=== PATIENT | male | born 1955 | race Caucasian/White ===

== ENCOUNTER 2017-08-22 10:08 | Observation (INO) | payer BC, OTHER ==
[~2017-08-22] VITALS: Ht 180.3 cm; Wt 67.0 kg
[2017-08-22] VITALS (7 sets, daily range): BP systolic 129–156; BP diastolic 46–77; PULSE 61–74; TEMP 36.5–37.1; O2SAT 93–98; BMI 21.7
[~2017-08-22 10:08] MED LIST: ATOR-22 PO; INSU1INJ SC; SODIUM CHLORIDE 0.9% 1000ML 1,000 ML IV SCH
[2017-08-22] MEDS ORDERED: SODIUM CHLORIDE 0.9% 1000ML 1,000 ML IV STA (10:27)
--- NOTE | 2017-08-22 10:39 | DIAGNOSTIC IMAGING REPORT ---
CHEST ONE VIEW PORTABLE CLINICAL HISTORY: Stroke mental status change COMPARISON STUDY: 12/24/2015 FINDINGS: The bones soft tissues and hemidiaphragms are normal. The cardiomediastinal silhouette is normal. The lungs are clear. The pulmonary vasculature is normal. IMPRESSION: Negative chest. The above report was generated using voice recognition software. It may contain grammatical, syntax or spelling errors. Electronically signed by: Eliseo Molina M.D. 08/22/2017 10:38 AM Dictated Date/Time: 08/22/2017 10:38 AM
--- NOTE | 2017-08-22 10:47 | DIAGNOSTIC IMAGING REPORT ---
HEAD WITHOUT CONTRAST (CT) CT DOSE: 638.56 mGycm HISTORY: Mental status change Stroke TECHNIQUE: Multiaxial CT images of the head were performed without the use of intravenous contrast. A dose lowering technique was utilized adhering to the principles of ALARA. Comparison: None. Findings: The paranasal sinuses and mastoid air cells are clear. The calvarium and skull base are intact. The ventricles and sulci are within normal limits. There is no mass, hematoma, midline shift, or acute infarct. There are findings of old infarcts involving the left frontal lobe, to lesser extent right frontal lobe, as well as left parietal lobe region. There is no evidence for acute intracranial hemorrhage. There is no midline shift. Impression: Multifocal old infarcts bilaterally. No acute intracranial abnormality. The above report was generated using voice recognition software. It may contain grammatical, syntax or spelling errors. Electronically signed by: Eliseo Molina M.D. 08/22/2017 10:45 AM Dictated Date/Time: 08/22/2017 10:43 AM
[2017-08-22] MEDS ORDERED: INSU3INJ2 SC (10:52)
[2017-08-22] MEDS ORDERED: INSU3INJ2 SQ (10:52)
[2017-08-22 11:12] LABS: BASO % 0.5 %; BASO ABS # 0.05 K/uL (0-0.2); COMPLETE YES; EOS % 7.3 %; HEMATOCRIT 41.6 % (42-52); IG% 0.4 %; LYMPH ABS # 1.56 K/uL (1.2-3.4); MEAN CELL VOLUME 87.9 fL (80-100); MEAN CORPUSCULAR HEMOGLOBIN 28.1 pg (25-34); MEAN PLATELET VOLUME 8.8 fL (7.4-10.4); NEUT % 69.8 %; PLATELET COUNT 347 K/uL (130-400); RED BLOOD COUNT 4.73 M/uL (4.7-6.1); WHITE BLOOD COUNT 10.41 K/uL (4.8-10.8)
[2017-08-22 11:19] LABS: BLOOD UREA NITROGEN 15 mg/dl (7-18); BUN/CREATININE RATIO 13.5 (10-20); CALCIUM 8.7 mg/dl (8.5-10.1); CARBON DIOXIDE 27 mmol/L (21-32); CHLORIDE 105 mmol/L (98-107); GLUCOSE 213 mg/dl (70-99); POTASSIUM 4.5 mmol/L (3.5-5.1); SODIUM 138 mmol/L (136-145)
[2017-08-22 11:24] LABS: CKMB/CK RATIO 1.8 (0-3.0)
[2017-08-22] MEDS ORDERED: ASPIRIN 81 MG CHEW PO STA (11:46)
[2017-08-22] MEDS ORDERED: CLOP1TAB5 PO (13:13)
[2017-08-22] MEDS ORDERED: ENAL20TA PO (13:13)
[2017-08-22] MEDS ORDERED: DEXTROSE 50% 50 ML SYR IV PRN (13:45)
[2017-08-22] MEDS ORDERED: GLUCAGON FOR INJ 1 MG VIAL SQ PRN (13:45)
[2017-08-22] MEDS ORDERED: PNEUMOCOCCAL ADMINISTRATION CHARGE ONE (13:45)
[2017-08-22] MEDS ORDERED: GLUCOSE 40% GEL 15 GM TUBE PO PRN (13:45)
[2017-08-22] MEDS ORDERED: PHARMACIST DISCHARGE MED REC CONSULT PRN (13:45)
[2017-08-22] MEDS ORDERED: ONDANSETRON INJ 2 MG/ML 2 ML VIAL IV PRN (13:45)
[2017-08-22] MEDS ORDERED: INFLUENZA VIRUS QUAD VACCINE 0.5 ML SYR IM. ONE (13:45)
[2017-08-22] MEDS ORDERED: GLUCOSE 10 TABS/TUBE PO PRN (13:45)
[2017-08-22] MEDS ORDERED: PNEUMOCOCCAL POLYSACCHARIDES 25 MCG/0.5 ML VIAL/SYR IM. ONE (13:45)
[2017-08-22] MEDS ORDERED: INFLUENZA ADMINISTRATION CHARGE ONE (13:45)
[2017-08-22] MEDS ORDERED: MAGNESIUM HYDROXIDE SUSP 30 ML UDC PO PRN (13:45)
[2017-08-22] MEDS ORDERED: ACETAMINOPHEN 325 MG TAB PO PRN (13:45)
[2017-08-22] MEDS ORDERED: ALUMINUM/MAGNESIUM/SIMETH (MAALOX MAX) 30 ML UDC PO PRN (13:45)
[2017-08-22] MEDS ORDERED: POLYETHYLENE (MIRALAX) 17 GM PACK PO PRN (13:45)
--- NOTE | 2017-08-22 13:54 | History and Physical ---
History & Physical Date & Time of Service: Aug 22, 2017 at 13:49 Chief Complaint: Stroke Alert Primary Care Physician: Drew Mcleod M.D. History of Present Illness Source: patient, spouse Mr. Mills is a 62 y/o male with PMHx of Isolated Hodgkins Lymphoma S/P Resection x 35 years ago, T2DM, HTN, HLD, and CVA in 2015 who presents to the ED c/o R hand/wrist weakness that started last evening. Patient reports R residual deficits from his previous CVA but stating he was "95%" recovered. Last night, patient noticed some numbness/tingling of the R hand/wrist but no other symptoms and went to bed. He awoke at 0830 and stated he felt "off" and had R hand numbness/tingling and weakness that he reports seemed to improve and worsen. Per , she noted that he appeared to have difficulty finding his words and a waxing and waning L facial droop. He reports his symptoms resolved on the ambulance ride to the hospital. Associated posterior headache that started prior to the symptoms but currently resolved. States he had frequent headaches as a child but no migraine history. He denies lower extremity neurological deficits. He is a diabetic who was recently instructed to switch to Lantus from 70/30 but could not give the dosing and states he hasn't started Lantus because he still had 70/30 to use. He believes his last A1c was 8. He is also an intermittent smoker and states he smokes approx. 2 cigarettes every few days. He reports that he had a previous carotid u/s that revealed 60% stenosis. He also reports chronic dysphagia that occurs nearly daily but occurs intermittently throughout the day. He denies H/O arrhythmia but states prior to a previous surgery the anesthesiologist mentioned something about his heart but he cannot recall specifics. Of note, patient reports taking an antibiotic for approx. 10-14 days from reported pneumonia. He is unable to state what this antibiotic is and reports completed the regimen. He states he was on it initially 10 days and then his symptoms did not improve and he took it longer. He denies a diagnosis of underlying pulmonary disease. Past Medical/Surgical History Medical Problems: (1) CVA (cerebral vascular accident) Status: Resolved Family History Diabetes mellitus Hypertension Social History Smoking Status: Current Some Day Smoker (2 cigarettes every few days) Alcohol Use: none Drug Use: none Marital Status: Housing status: lives with significant other Occupational Status: retired Allergies Coded Allergies: Penicillins (Verified Allergy, Unknown, UNKNOWN-HAD CHILD, 08/22/17) Home Medications Scheduled Atorvastatin (Lipitor), 20 MG PO QPM Clopidogrel Bisulfate (Plavix), 75 MG PO QPM Enalapril Maleate (Enalapril Maleate), 20 MG PO QPM Insulin Isophane & Reg (Human) (Humulin 70/30 Kwikpen (70-30) 100 Unit/ml), 30 UNITS SC QAM Insulin Isophane & Reg (Human) (Humulin 70/30 Kwikpen (70-30) 100 Unit/ml), 20 UNITS SQ QPM Review of Systems Constitutional: No fever, No chills Eyes: No worsening of vision, No eye pain, No diplopia ENT: + trouble swallowing (chronic difficulty initiating swallow), + problem reported (post-nasal drip), No nasal symptoms, No sore throat Respiratory: + cough, + sputum, + dyspnea on exertion (chronic), No dyspnea at rest Cardiovascular: No chest pain, No palpitations Abdomen: No pain, No nausea, No vomiting, No diarrhea, No constipation, No GI bleeding Musculoskeletal: No swelling, No calf pain Genitourinary - Male: No dysuria Neurologic: + weakness (R sided - wax and waning R hand), + numbness/tingling ( R hand), No memory loss, No vertigo, No balance problems Hematologic / Lymphatic: No abnormal bleeding/bruising, No clotting problems Integumentary: No rash Physical Exam Vital Signs Date Time Temp Pulse Resp B/P (MAP) Pulse Ox O2 Delivery O2 Flow Rate FiO2 08/22/17 12:40 98 Room Air 08/22/17 12:25 73 16 128/74 98 Room Air 08/22/17 11:30 71 16 97 Room Air 08/22/17 10:46 79 08/22/17 10:08 97 Room Air 08/22/17 10:08 36.8 97 18 113/73 97 Room Air General Appearance: WD/WN, no apparent distress, + thin Head: normocephalic, atraumatic Eyes: sclerae normal ENT: hearing grossly normal, + pertinent finding (mildly erythematous pharynx without exudates) Neck: supple, no JVD, trachea midline Respiratory/Chest: no respiratory distress, no accessory muscle use, + wheezing (diffuse) Cardiovascular: regular rate, rhythm, no gallop, no murmur Abdomen/GI: normal bowel sounds, non tender, soft Extremities/Musculoskelatal: no calf tenderness, no pedal edema Neurologic/Psych: no motor/sensory deficits, alert, normal mood/affect, oriented x 3 Skin: normal color, warm/dry Diagnostics Laboratory Results Results Past 24 Hours Test 08/22/17 10:27 08/22/17 10:50 08/22/17 13:01 Range/Units Bedside Prothrombin Time INR 1.1 0.9-1.1 White Blood Count 10.41 4.8-10.8 K/uL Red Blood Count 4.73 4.7-6.1 M/uL Hemoglobin 13.3 14.0-18.0 g/dL Hematocrit 41.6 42-52 % Mean Corpuscular Volume 87.9 80-100 fL Mean Corpuscular Hemoglobin 28.1 25-34 pg Mean Corpuscular Hemoglobin Concent 32.0 32-36 g/dl Platelet Count 347 130-400 K/uL Mean Platelet Volume 8.8 7.4-10.4 fL Neutrophils (%) (Auto) 69.8 % Lymphocytes (%) (Auto) 15.0 % Monocytes (%) (Auto) 7.0 % Eosinophils (%) (Auto) 7.3 % Basophils (%) (Auto) 0.5 % Neutrophils # (Auto) 7.27 1.4-6.5 K/uL Lymphocytes # (Auto) 1.56 1.2-3.4 K/uL Monocytes # (Auto) 0.73 0.11-0.59 K/uL Eosinophils # (Auto) 0.76 0-0.5 K/uL Basophils # (Auto) 0.05 0-0.2 K/uL RDW Standard Deviation 44.4 36.4-46.3 fL RDW Coefficient of Variation 13.7 11.5-14.5 % Immature Granulocyte % (Auto) 0.4 % Immature Granulocyte # (Auto) 0.04 0.00-0.02 K/uL Sodium Level 138 136-145 mmol/L Potassium Level 4.5 3.5-5.1 mmol/L Chloride Level 105 98-107 mmol/L Carbon Dioxide Level 27 21-32 mmol/L Anion Gap 6.0 3-11 mmol/L Blood Urea Nitrogen 15 7-18 mg/dl Creatinine 1.10 0.60-1.40 mg/dl Est Creatinine Clear Calc Drug Dose 67.8 ml/min Estimated GFR () 81.8 Estimated GFR (Non- 70.6 BUN/Creatinine Ratio 13.5 10-20 Random Glucose 213 70-99 mg/dl Calcium Level 8.7 8.5-10.1 mg/dl Total Creatine Kinase 129 39-308 U/L Creatine Kinase MB 2.3 0.5-3.6 ng/ml Creatine Kinase MB Ratio 1.8 0-3.0 Troponin I < 0.015 0-0.045 ng/ml Diagnostic Radiology HEAD WITHOUT CONTRAST (CT) Findings: The paranasal sinuses and mastoid air cells are clear. The calvarium and skull base are intact. The ventricles and sulci are within normal limits. There is no mass, hematoma, midline shift, or acute infarct. There are findings of old infarcts involving the left frontal lobe, to lesser extent right frontal lobe, as well as left parietal lobe region. There is no evidence for acute intracranial hemorrhage. There is no midline shift. Impression: Multifocal old infarcts bilaterally. No acute intracranial abnormality. CHEST ONE VIEW PORTABLE FINDINGS: The bones soft tissues and hemidiaphragms are normal. The cardiomediastinal silhouette is normal. The lungs are clear. The pulmonary vasculature is normal. IMPRESSION: Negative chest. EKG Normal sinus rhythm Right superior axis deviation Inferior infarct (cited on or before 12-AUG-2015) Anterior infarct , age undetermined Abnormal ECG When compared with ECG of 24-DEC-2015 14:56, No significant change was found Impression Assessment and Plan Mr. Mills is a 62 y/o male with PMHx of Isolated Hodgkins Lymphoma S/P Resection x 35 years ago, T2DM, HTN, HLD, and CVA in 2014 who presents to the ED c/o R hand/wrist weakness that started last evening. Stuttering CVA: L Temporal Cortex: - Symptoms currently resolved - MRI confirmed punctate foci in L temporal cortex with CT showing bilateral old infarcts - Carotid U/S with significant stenosis - likely the source of CVA - Echo and monitor on tele - no history of arrhythmia but given bilateral CVA findings it is warranted - Neuro checks and fasting lipid panel; patient normotensive but will hold ACEI and allow permissive HTN - Currently on Plavix 75 mg daily and will add ASA 81 mg - Continue Atorvastatin 20 mg daily - await lipid panel but likely needs high- dose statin - Consult neurology - appreciate further recommendations and outpatient follow- up Chronic Dysphagia: - Seen coughing when eating and when instructed to open mouth to assess throat he began coughing - Reporting daily dysphagia but intermittently occurs throughout the day with both solid and liquid - Speech evaluation T2DM: Likely Uncontrolled - Reporting A1c in 8 - will obtain update - Hold 70/30 and start Lantus and SSI -- Patient could not give specific dose of Lantus he was instructed to start but states that he was only to take Lantus and no meal coverage - Is interested in establishment with diabetic specialist here in [place] - Recommend better diabetic control to reduce risk of further CVA/TIA Wheezing: - Possible underlying pulmonary disease given smoking history - CXR without consolidation - Duonebs DB and PRN Disposition: - Pending further testing and continued resolution of neurological symptoms - possible D/C tomorrow Level of Care Telemetry Advanced Directives Existing Living Will: No Existing Power of Plastics Plater: No Resuscitation Status FULL RESUSCITATION VTE Prophylaxis VTE Risk Assessment Done? Y/N: Yes Risk Level: Moderate Given or contraindicated: SCD's Reviewed: Pt Seen/Exam by Me History Pt is feeling improved. No further R UE weakness. Earlier he could not hold a coffee cup, but now he can. Noted to be coughing when I entered the room as he was eating. States this happens daily but not with all swallowing. Feels facial droop has resolved. No chest pain or SOB. Agree with HPI/ROS as noted. 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 involvement with CVA sx??
[2017-08-22] MEDS ORDERED: ALBUT/IPRATROP 3MG/0.5MG NEB 3 ML VIAL INH PRN (14:00)
[2017-08-22] MEDS ORDERED: IV FLUIDS COMPLETED PRN (14:45)
[2017-08-22] MEDS: ALBUT/IPRATROP 3MG/0.5MG NEB 3 ML VIAL INH SCH ×3 (15:50→19:50)
--- NOTE | 2017-08-22 15:58 | EMERGENCY ROOM VISIT NOTE ---
History Report prepared by Juan Luis: Alex Alex Under the Supervision of: Dr. Sharath Matos D.O. First contact with patient: 10:08 Stated Complaint: STROKE ALERT History of Present Illness The patient is a 62 year old male who presents to the Emergency Room with complaints of resolved neurologic symptoms beginning 1.5 hours ago (829). His symptoms include right hand numbness and weakness, and difficulty speaking. He states that he was unable to use his hand, but this has resolved. The patient denies any weakness or numbness to his legs today. He denies any confusion. He has a history of a prior stroke. The patient states that he currently feels back to normal. He is currently taking an unknown antibiotic for pneumonia. He notes that his right hand felt a little numb/weak before he went to bed last night around 12 hours ago. Source of History: patient Onset: 1.5 hours ago Position: hand (right) Quality: other (neurologic symptoms) Timing: resolved Note: The patient denies weakness or numbness to his legs, or confusion. Review of Systems See HPI for pertinent positives & negatives. A total of 10 systems reviewed and were otherwise negative. Past Medical & Surgical Medical Problems: (1) CVA (cerebral vascular accident) (2) TIA (transient ischemic attack) Family History Diabetes mellitus Hypertension Social History Smoking Status: Former Smoker Alcohol Use: occasionally Marital Status: Housing Status: lives with family Occupation Status: retired Current/Historical Medications Scheduled Atorvastatin (Lipitor), 20 MG PO QPM Clopidogrel Bisulfate (Plavix), 75 MG PO QPM Enalapril Maleate (Enalapril Maleate), 20 MG PO QPM Insulin Isophane & Reg (Human) (Humulin 70/30 Kwikpen (70-30) 100 Unit/ml), 30 UNITS SC QAM Insulin Isophane & Reg (Human) (Humulin 70/30 Kwikpen (70-30) 100 Unit/ml), 20 UNITS SQ QPM Allergies Coded Allergies: Penicillins (Verified Allergy, Unknown, UNKNOWN-HAD CHILD, 08/22/17) Physical Exam Vital Signs Date Time Temp Pulse Resp B/P (MAP) Pulse Ox O2 Delivery O2 Flow Rate FiO2 08/22/17 12:40 98 Room Air 08/22/17 12:25 73 16 128/74 98 Room Air 08/22/17 11:30 71 16 97 Room Air 08/22/17 10:46 79 08/22/17 10:08 97 Room Air 08/22/17 10:08 36.8 97 18 113/73 97 Room Air Physical Exam GENERAL: Sitting up in bed, disheveled, no acute distress, nontoxic. EYE EXAM: normal conjunctiva. PERRL and EOM's intact. OROPHARYNX: no exudate, no erythema, lips, buccal mucosa, and tongue normal and mucous membranes are moist NECK: supple, no nuchal rigidity, no adenopathy, non-tender LUNGS: Clear to auscultation. Normal chest wall mechanics HEART: no murmurs, S1 normal and S2 normal ABDOMEN: abdomen soft, non-tender, normo-active bowel sounds, no masses, no rebound or guarding. BACK: Back is symmetrical on inspection and there is no deformity, no midline tenderness, no CVA tenderness. SKIN: no rashes and no bruising UPPER EXTREMITIES: upper extremities are grossly normal. LOWER EXTREMITIES: No pitting edema. NEURO EXAM: Normal sensorium, cranial nerves II-XII intact, normal speech, no weakness of arms, no weakness of legs. No drift. Finger to nose intact. Gross sensation intact. Medical Decision & Procedures ER Provider Diagnostic Interpretation: Radiology results as stated below per my review and the radiologist's interpretation: HEAD WITHOUT CONTRAST (CT) Findings: The paranasal sinuses and mastoid air cells are clear. The calvarium and skull base are intact. The ventricles and sulci are within normal limits. There is no mass, hematoma, midline shift, or acute infarct. There are findings of old infarcts involving the left frontal lobe, to lesser extent right frontal lobe, as well as left parietal lobe region. There is no evidence for acute intracranial hemorrhage. There is no midline shift. Impression: Multifocal old infarcts bilaterally. No acute intracranial abnormality. The above report was generated using voice recognition software. It may contain grammatical, syntax or spelling errors. Electronically signed by: Eliseo Molina M.D. 08/22/2017 10:45 AM CHEST ONE VIEW PORTABLE FINDINGS: The bones soft tissues and hemidiaphragms are normal. The cardiomediastinal silhouette is normal. The lungs are clear. The pulmonary vasculature is normal. IMPRESSION: Negative chest. The above report was generated using voice recognition software. It may contain grammatical, syntax or spelling errors. Electronically signed by: Eliseo Molina M.D. 08/22/2017 10:38 AM Laboratory Results 08/22/17 10:50 Red Blood Count 4.73, Mean Corpuscular Volume 87.9, Mean Corpuscular Hemoglobin 28.1, Mean Corpuscular Hemoglobin Concent 32.0, Mean Platelet Volume 8.8, Neutrophils (%) (Auto) 69.8, Lymphocytes (%) (Auto) 15.0, Monocytes (%) (Auto) 7.0, Eosinophils (%) (Auto) 7.3, Basophils (%) (Auto) 0.5, Neutrophils # (Auto) 7.27, Lymphocytes # (Auto) 1.56, Monocytes # (Auto) 0.73, Eosinophils # (Auto) 0.76, Basophils # (Auto) 0.05 08/22/17 10:50 Test 08/22/17 10:00 08/22/17 10:27 08/22/17 10:50 Bedside Prothrombin Time INR 1.1 (0.9-1.1) White Blood Count 10.41 K/uL (4.8-10.8) Red Blood Count 4.73 M/uL (4.7-6.1) Hemoglobin 13.3 g/dL (14.0-18.0) Hematocrit 41.6 % (42-52) Mean Corpuscular Volume 87.9 fL (80-100) Mean Corpuscular Hemoglobin 28.1 pg (25-34) Mean Corpuscular Hemoglobin Concent 32.0 g/dl (32-36) Platelet Count 347 K/uL (130-400) Mean Platelet Volume 8.8 fL (7.4-10.4) Neutrophils (%) (Auto) 69.8 % Lymphocytes (%) (Auto) 15.0 % Monocytes (%) (Auto) 7.0 % Eosinophils (%) (Auto) 7.3 % Basophils (%) (Auto) 0.5 % Neutrophils # (Auto) 7.27 K/uL (1.4-6.5) Lymphocytes # (Auto) 1.56 K/uL (1.2-3.4) Monocytes # (Auto) 0.73 K/uL (0.11-0.59) Eosinophils # (Auto) 0.76 K/uL (0-0.5) Basophils # (Auto) 0.05 K/uL (0-0.2) RDW Standard Deviation 44.4 fL (36.4-46.3) RDW Coefficient of Variation 13.7 % (11.5-14.5) Immature Granulocyte % (Auto) 0.4 % Immature Granulocyte # (Auto) 0.04 K/uL (0.00-0.02) Anion Gap 6.0 mmol/L (3-11) Est Creatinine Clear Calc Drug Dose 67.8 ml/min Estimated GFR () 81.8 Estimated GFR (Non- 70.6 BUN/Creatinine Ratio 13.5 (10-20) Calcium Level 8.7 mg/dl (8.5-10.1) Total Creatine Kinase 129 U/L (39-308) Creatine Kinase MB 2.3 ng/ml (0.5-3.6) Creatine Kinase MB Ratio 1.8 (0-3.0) Troponin I < 0.015 ng/ml (0-0.045) Laboratory results per my review. Medications Administered Medications (Trade) Dose Ordered Sig/Nicolas Route Start Time Stop Time Status Last Admin Dose Admin Sodium Chloride 1,000 ml @ 999 mls/hr Q1H1M STAT IV 08/22/17 10:27 08/22/17 11:27 DC 08/22/17 10:55 999 MLS/HR Aspirin (Aspirin Chew) 324 mg NOW STAT PO 08/22/17 11:46 08/22/17 11:47 DC 08/22/17 12:05 324 MG ECG Indication: other (neurologic symptoms) Rate (beats per minute): 77 Rhythm: sinus rhythm Findings: Q waves (Inferior), other (LAD) ED Course ED COURSE: Vital signs were reviewed and appeared normal. The patients medical record was reviewed The above diagnostic studies were performed and reviewed. ED treatments and interventions as stated above. 1015: The patient was evaluated in room B1. A complete history and physical examination was performed. 1027: Ordered Sodium Chloride 1000 ml @ 999 mls/hr IV. 1146: Ordered Aspirin Chew 324 mg PO. 1142: Upon reevaluation, the patient is resting comfortably. I discussed my findings with the patient and she understands and agrees with the treatment plan. Based on the patients age, coexisting illnesses, exam and lab findings the decision to treat as an inpatient was made. The patient remained stable while under my care. The patient will be evaluated for further management. Medical Decision Differential Diagnosis includes but is not limited to ischemic Stroke, hemorrhagic stroke, bells palsy, mass, neoplasm, migraine headache, seizure, subarachnoid hemorrhage, TIA, and transient global amnesia. Patient is a 62-year-old male who presents to ER for weakness in his right lower extremity associated with slurred speech and paresthesias. He notes he symptoms complete he thinks initially started last night around 10 PM. He noted paresthesias and weakness which were coming going in the right upper extremity. Upon arrival is completely neurologically intact. He was seen in P1. Patient was transferred immediately to the CT scanner. CT showed no acute bleed. On reevaluation patient was completely neurologically intact. CBC along with BMP and troponin were unremarkable. INR was 1. Based on his presentation I do favor he likely has a stuttering stroke as this has been waxing and waning since last night at 10 PM. He simply back to baseline. He was given fluids and aspirin. Patient was updated at bedside. He was admitted to internal medicine for further workup. Consults Time Called: 1140 Consulting Physician: Dr. Causey -HELLEN Returned Call: [phone] I reviewed the patient's case with Dr. Causey. JEOVANYG will evaluate the patient for further management. Impression Primary Impression: TIA (transient ischemic attack) Scribe Attestation The scribe's documentation has been prepared under my direction and personally reviewed by me in its entirety. I confirm that the note above accurately reflects all work, treatment, procedures, and medical decision making performed by me. Departure Information Dispostion Being Evaluated By Hospitalist Referrals Drew Mcleod M.D. (PCP) Problem Qualifiers Primary Impression: TIA (transient ischemic attack) Transient cerebral ischemia type: unspecified Qualified Codes: G45.9 - Transient cerebral ischemic attack, unspecified
[2017-08-22] MEDS ORDERED: GADAVIST IV PRN (16:45)
--- NOTE | 2017-08-22 16:47 | DIAGNOSTIC IMAGING REPORT ---
MRI OF THE BRAIN COMBO CLINICAL HISTORY: Strokelike symptoms. COMPARISON STUDY: CT of the brain dated 08/22/2017. TECHNIQUE: MRI of the brain was performed utilizing various T1 and T2-weighted sequences in the axial, sagittal, and coronal planes. Contrast-enhanced sequences were acquired following the administration of 7 cc of Gadavist. The examination is degraded by motion artifact. FINDINGS: Brain parenchyma: There are age-related involutional changes noting mild to moderate patchy subcortical and periventricular microangiopathic disease. Foci of bilateral frontal and left parietal encephalomalacia are consistent with remote infarcts. Tiny chronic lacunar infarcts identified in the left caudate head and the left cerebellar hemisphere. There are punctate foci of restricted diffusion identified within the medial left temporal cortex seen on axial image #13. There is no hemorrhage or mass effect. No enhancing mass lesion is identified on the postcontrast images. Hicks-white matter differentiation is preserved. No extra-axial fluid collection is seen. The cerebellar tonsils are normal in configuration. Ventricles, sulci, and cisterns: Prominent secondary to involutional change. Pituitary and sella: Unremarkable. Intracranial vasculature: Normal flow voids are maintained at the skull base. Orbits: The bony orbits are grossly intact. Orbital contents are normal in appearance. Sinuses and mastoids: There is a right mastoid effusion. The left mastoid air cells and paranasal sinuses are clear. Calvarium: Unremarkable. Cervical cord: Partially visualized cervical spinal cord is normal in morphology and signal intensity. IMPRESSION: 1. There are punctate foci of restricted diffusion in the medial left temporal cortex consistent with acute to subacute ischemia. 2. No additional foci of acute ischemia are identified. There is no hemorrhage, enhancing mass, or midline shift. 3. Senescent changes and remote infarcts as above. 4. Right mastoid effusion. Electronically signed by: Justin Scherer M.D. 08/22/2017 4:46 PM Dictated Date/Time: 08/22/2017 4:41 PM
[2017-08-22] MEDS: INSULIN ASPART 100 UNITS/ML 3 ML PEN SC SCH ×2 (17:30→20:07)
--- NOTE | 2017-08-22 17:30 | DIAGNOSTIC IMAGING REPORT ---
BILATERAL CAROTID DOPPLER STUDY HISTORY: Stroke COMPARISON: Neck CTA 09/09/2016. TECHNIQUE: Real-time, grayscale, and color Doppler sonography of the carotid arteries was performed. Imaging reviewed in the transverse and longitudinal planes. All measurements were calculated based on NASCET criteria. FINDINGS: Antegrade flow is seen in the bilateral vertebral arteries. The brachial pressures are hemodynamically similar. Severe calcified plaque within the bilateral internal carotid arteries and right external carotid artery. Mild to moderate calcified plaque within the left external carotid artery. The peak systolic velocity within the right ICA is 189 cm/s distally. The right systolic ratio is 2.9. The peak systolic velocity within the left ICA is 276 cm/s at the midportion. The left systolic ratio is 2.8. High-grade stenosis within the right external carotid artery and mild stenosis within the left external carotid artery. IMPRESSION: 1. Greater than 70% stenosis within the mid left internal carotid artery. 2. 50-69% stenosis within the distal right internal carotid artery. 3. High-grade stenosis within the right external carotid artery. Electronically signed by: Carlin Dumont M.D. 08/22/2017 5:28 PM Dictated Date/Time: 08/22/2017 5:25 PM
[2017-08-22] MEDS: INSULIN GLARGINE SOLOSTAR 100 UNITS/ML 3 ML PEN SC SCH (20:09)
[2017-08-22] MEDS ORDERED: ATORVASTATIN 20 MG TAB PO SCH (21:00)
[2017-08-22] MEDS ORDERED: CLOPIDOGREL BISULFATE 75 MG TAB PO SCH (21:00)
[2017-08-23] VITALS (10 sets, daily range): BP systolic 136–197; BP diastolic 64–77; PULSE 64–85; TEMP 36.7–36.9; O2SAT 92–95; Ht 180.3 cm; Wt 67.0 kg
[2017-08-23 06:55] LABS: BASO % 0.5 %; BASO ABS # 0.04 K/uL (0-0.2); COMPLETE YES; EOS % 15.6 %; HEMATOCRIT 38.5 % (42-52); IG% 0.4 %; LYMPH % 27.3 %; MEAN CELL VOLUME 87.7 fL (80-100); MEAN CORPUSCULAR HEMOGLOBIN 28.7 pg (25-34); MEAN CORPUSCULAR HGB CONC 32.7 g/dl (32-36); MEAN PLATELET VOLUME 8.4 fL (7.4-10.4); MONO % 9.5 %; NEUT % 46.7 %; PLATELET COUNT 297 K/uL (130-400); RED BLOOD COUNT 4.39 M/uL (4.7-6.1); WHITE BLOOD COUNT 8.44 K/uL (4.8-10.8)
[2017-08-23] MEDS: ALBUT/IPRATROP 3MG/0.5MG NEB 3 ML VIAL INH SCH ×3 (06:56→15:33)
[2017-08-23 07:24] LABS: BUN/CREATININE RATIO 12.6 (10-20); CALCIUM 8.6 mg/dl (8.5-10.1); CREATININE 0.96 mg/dl (0.60-1.40); POTASSIUM 4.5 mmol/L (3.5-5.1)
[2017-08-23 07:27] LABS: CHOLESTEROL/HDL RATIO 2.6
[2017-08-23 07:51] LABS: ESTIMATED AVERAGE GLUCOSE 194 mg/dl; HA1C FLAG Normal (Normal)
[2017-08-23] MEDS: INSULIN ASPART 100 UNITS/ML 3 ML PEN SC SCH ×3 (07:51→16:08)
[2017-08-23] MEDS: INSULIN GLARGINE SOLOSTAR 100 UNITS/ML 3 ML PEN SC SCH (07:52)
[2017-08-23] MEDS ORDERED: ASPIRIN 81 MG ECTAB PO SCH (09:00)
--- NOTE | 2017-08-23 09:11 | ECHOCARDIOGRAM REPORT ---
*NOTICE TO RECEIVING [employer] This information is strictly Confidential and protected under [place] law. [place] law prohibits you from making any further disclosure of this information unless further disclosure is expressly permitted by the written consent of the person to whom it pertains or is authorized by law. A general authorization for the release of medical or other information is not sufficient for this purpose. Hospital accepts no responsibility if the information is made available to any other person, INCLUDING THE PATIENT. Interpretation Summary * Name: MARK AGUIRRE Study Date: 08/23/2017 06:38 AM BP: 147/77 mmHg * Patient Location: C.2T\S\S242\S\1 HR: 71 * : 1955 (M/d/yyyy) Gender: Male Height: 70 in * Age: 62 yrs Ethnicity: CA Weight: 155 lb * Ordering Physician: Namita Melendez * Referring Physician: Self, Referred * Performed By: Dany Garcia RCS * * Reason For Study: CVA, Possible Underlying Arrhythmia * BSA: 1.9 m2 * No cardiac source of emboli noted. * -- Conclusions -- * Left ventricular systolic function is normal. * Injection of contrast documented no interatrial shunt. Procedure Details * A complete two-dimensional transthoracic echocardiogram was performed (2D, M-mode, Doppler and color flow Doppler). * A saline contrast injection was performed to assess for cardiac shunting. * The injection was performed through an intravenous line in the left arm. * The attending nurse who injected the saline contrast was Jaylan Ribeiro RN. * A total of 20 cc of agitated saline was given. Left Ventricle * The left ventricle is normal in size. * There is normal left ventricular wall thickness. * Ejection Fraction = 60-65%. * Left ventricular systolic function is normal. * The left ventricular wall motion is normal. Right Ventricle * The right ventricle is normal in size and function. Atria * The left atrial size is normal. * The right atrium is borderline dilated. * Injection of contrast documented no interatrial shunt. Mitral Valve * The mitral valve is grossly normal. * Significant mitral regurgitation is absent. Tricuspid Valve * The tricuspid valve is not well visualized, but is grossly normal. * Significant tricuspid regurgitation is absent. Aortic Valve * The aortic valve is normal in structure and function. * No hemodynamically significant valvular aortic stenosis. * There is no significant aortic regurgitation. Great Vessels * The aortic root is normal size. Pericardium/Pleural * There is no pericardial effusion. Great Vessels * Normal inferior vena cava diameter and respiratory variation suggests normal central venous pressure. MMode 2D Measurements and Calculations IVSd 0.90 cm IVSs 1.2 cm LVIDd 4.0 cm LVIDs 2.4 cm LVPWd 10 cm LVPWs 1.3 cm IVS/LVPW 0.90 FS 40.0 % EDV(Teich) 69.3 ml ESV(Teich) 20.0 ml EF(Teich) 71.2 % EDV(cubed) 63.2 ml ESV(cubed) 13.7 ml EF(cubed) 78.4 % % IVS thick 33.8 % % LVPW thick 25.6 % LV mass(C)d 117.1 grams LV mass(C)dI 62.5 grams/m\S\2 LV mass(C)s 83.9 grams LV mass(C)sI 44.8 grams/m\S\2 SV(Teich) 49.3 ml SI(Teich) 26.3 ml/m\S\2 SV(cubed) 49.5 ml SI(cubed) 26.4 ml/m\S\2 Ao root diam 3.1 cm Ao root area 7.5 cm\S\2 ACS 1.3 cm LA dimension 3.2 cm asc Aorta Diam 2.6 cm LA/Ao 1.0 EDV(MOD-sp4) 74.0 ml ESV(MOD-sp4) 30.0 ml EF(MOD-sp4) 59.5 % EDV(MOD-sp2) 104.0 ml ESV(MOD-sp2) 35.0 ml EF(MOD-sp2) 66.3 % SV(MOD-sp4) 44.0 ml SI(MOD-sp4) 23.5 ml/m\S\2 SV(MOD-sp2) 69.0 ml SI(MOD-sp2) 36.8 ml/m\S\2 Doppler Measurements and Calculations MV E max bill 99.2 cm/sec MV A max bill 86.8 cm/sec MV E/A 1.1 MV P1/2t max bill 119.1 cm/sec MV P1/2t 67.4 msec MVA(P1/2t) 3.3 cm\S\2 MV dec slope 517.2 cm/sec\S\2 MV dec time 0.23 sec Ao V2 max 109.6 cm/sec Ao max PG 4.8 mmHg Ao max PG (full) 1.1 mmHg LV V1 max PG 3.7 mmHg LV V1 max 95.7 cm/sec PA V2 max 85.4 cm/sec PA max PG 2.9 mmHg
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
[2017-08-23] MEDS ORDERED: ASPIRIN 81 MG ECTAB PO STA (11:25)
--- NOTE | 2017-08-23 12:22 | Medical Student: [facility] ---
Consultation Date of Consultation: Aug 23, 2017. Requesting Physician: Dr. Gifford Attending Physician: Dr. Deleon Reason for Consultation: TIA vs. CVA History of Present Illness Jae Mills is a 62 yo male, with PMHx of DM2 and CVA, who presented to the ED complaining of sudden onset right hand weakness. He reports going to bed two nights ago that his hand "felt funny," describing some numbness/weakness, but went to bed anyway. 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 He reports that his symptoms had mostly resolved by the time he arrived at the ED around 1000. He reports residual symptoms from a previous stroke (from a "collapsed blood vessel") in 2012 of some right hand numbness/weakness, some difficulty with speaking, and increased emotions. He states he started on plavix after his stroke, and was told to stop taking a daily aspirin at that time. He notes he has followed with cardiology since, with serial carotid dopplers, showing around 60% stenosis, with most recent ultrasound a few weeks ago, which he has not yet received the results from. He notes additional symptoms of residual cough and some shortness of breath since having pneumonia recently (finished antibiotic treatment). He denies weakness/ numbness of legs, confusion, history of migraine headaches, vision/speech problems, noticing a facial droop. Past Medical/Surgical History Medical History: CVA in 2013 with residual right hand numbness/weakness Hodgkin's lymphoma in his nostril, resected 35 years ago DM2 Recent pneumonia (diagnosed on symptoms, completed antibiotics, residual cough) Surgical History: Bilateral hernia repairs (3 total) Orthopaedic: right shoulder arthroscopy, subacromial decompression, biceps tendinosis, left leg compression fracture repair (age 14) Hodgkin lymphoma removal from nostril x 35 years Family History Father: at 72 from demenitia, likely of Alzheimer type Mother: at 87 from burst aneurysm of unknown location 2 sisters currently living have no known chronic health conditions Social History Smoking Status: Current Some Day Smoker (smokes 1 pack/week (2 cigarettes every few days), previously smoked 1.5 ppd, cut down after stroke in 2012) History of Alcohol Use: Yes (RARELY) Drug Use: none Marital Status: Housing Status: lives with significant other 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) Review of Systems Constitutional: No fever, No chills Eyes: No worsening of vision, No redness ENT: No hearing loss Respiratory: + cough, + shortness of breath (with coughing fits) Cardiac: No chest pain, No palpitations Abdomen: No pain, No nausea, No vomiting, No diarrhea, No constipation Musculoskeletal: No joint pain, No muscle pain Male : No dysuria, No incontinence Neurologic: + weakness (at baseline), + numbness/tingling (at baseline), No memory loss Psychiatric: No depression symptoms Heme: No abnormal bleeding/bruising Endo: No fatigue Skin: No rash Allergies Coded Allergies: Penicillins (Verified Allergy, Unknown, UNKNOWN-HAD CHILD, 08/22/17) Medications Current Inpatient Medications Medications (Trade) Dose Ordered Sig/Nicolas Route Start Time Stop Time Status Last Admin Dose Admin Acetaminophen (Tylenol Tab) 650 mg Q4H PRN PO 08/22/17 13:45 09/21/17 13:44 Al Hydrox/Mg Hydrox/Simethicone (Maalox Max Susp) 15 ml Q4H PRN PO 08/22/17 13:45 09/21/17 13:44 Magnesium Hydroxide (Milk Of Magnesia Susp) 30 ml Q12H PRN PO 08/22/17 13:45 09/21/17 13:44 Ondansetron HCl (Zofran Inj) 4 mg Q6H PRN IV 08/22/17 13:45 09/21/17 13:44 Aspirin (Ecotrin Tab) 81 mg QAM PO 08/23/17 09:00 09/22/17 08:59 08/23/17 07:48 81 MG Polyethylene (Miralax Powder Packet) 17 gm DAILY PRN PO 08/22/17 13:45 09/21/17 13:44 Miscellaneous Information (Pharmacist Discharge Med Rec Consult) 1 ea UD PRN N/A 08/22/17 13:45 09/21/17 13:44 Insulin Glargine (Lantus Solostar Pen) 6 units Q12 SC 08/22/17 21:00 09/21/17 20:59 08/23/17 07:52 6 UNITS Insulin Aspart (novoLOG ASPART) SLIDING SCALE If C... ACHS SC 08/22/17 16:00 09/21/17 15:59 08/23/17 07:51 5 UNITS Glucose (Glucose 40% Gel) 15-30 GRAMS 15 GRAMS... UD PRN PO 08/22/17 13:45 09/21/17 13:44 Glucose (Glucose Chew Tab) 4-8 Tablets 4 Tabl... UD PRN PO 08/22/17 13:45 09/21/17 13:44 Dextrose (Dextrose 50% 50ML Syringe) 25-50ML OF 50% DW IV FOR... UD PRN IV 08/22/17 13:45 09/21/17 13:44 Glucagon (Glucagon Inj) 1 mg UD PRN SQ 08/22/17 13:45 09/21/17 13:44 Atorvastatin Calcium (Lipitor Tab) 20 mg QPM PO 08/22/17 21:00 09/21/17 20:59 08/22/17 20:09 20 MG Clopidogrel Bisulfate (plAVix TAB) 75 mg QPM PO 08/22/17 21:00 09/21/17 20:59 08/22/17 20:10 75 MG Albuterol/ Ipratropium (Duoneb) 3 ml QIDR INH 08/22/17 16:00 09/21/17 15:59 08/22/17 19:50 3 ML Albuterol/ Ipratropium (Duoneb) 3 ml Q2H PRN INH 08/22/17 14:00 09/21/17 13:59 Miscellaneous (Iv Fluids Completed) 1 ea PRN PRN N/A 08/22/17 14:45 08/22/18 14:44 Gadobutrol (Gadavist) 7 mmol UD PRN IV 08/22/17 16:45 08/26/17 16:44 Physical Exam Date Time Temp Pulse Resp B/P (MAP) Pulse Ox O2 Delivery O2 Flow Rate FiO2 08/23/17 11:01 36.9 67 18 136/65 (88) 95 Room Air 08/23/17 08:00 92 Room Air 08/23/17 07:52 36.8 73 18 161/64 (96) 92 Room Air 08/23/17 04:20 36.7 71 17 147/77 (100) 95 Room Air 08/23/17 04:00 Room Air 08/23/17 00:00 Room Air 08/22/17 23:57 36.5 63 20 129/63 (85) 94 Room Air 08/22/17 20:00 93 Room Air 08/22/17 19:55 74 16 93 Room Air 08/22/17 18:51 37.0 62 20 146/77 (100) 97 Room Air 08/22/17 15:07 37.1 61 18 133/77 (95) 98 Room Air 08/22/17 14:30 36.6 63 18 156/46 (82) 98 Room Air 08/22/17 14:09 76 18 157/81 95 Room Air 08/22/17 12:40 98 Room Air 08/22/17 12:25 73 16 128/74 98 Room Air General Appearance: WD/WN, no apparent distress Eyes: bilateral eyes normal inspection, bilateral eyes PERRL, bilateral eyes EOMI ENT: normal ENT inspection, hearing grossly normal Neck: supple Neurologic Exam: Alert and oriented x3, right handed male Cranial Nerves: II: visual acuity intact grossly, appreciated vessels in bilateral eyes on funduscopic exam and made out yellow discs III, IV, : eyelid opening intact bilaterally, extraocular movements fully intact bilaterally V: sensation intact bilaterally VII: eyebrow raise symmetric, eyelid close symmetric, possible slight smile droop on left side VIII: hearing grossly intact bilaterally IX, X: symmetric palate elevation, normal phonation XII: tongue protrusion intact, strength on lateral deviation symmetric Sensation: intact in all four extremities Tone: normal in all four extremities Strength: 5/5 strength in all extremities (proximal and distal) Reflexes: 2/4 reflexes throughout all extremities (biceps, triceps, brachioradialis, patellar, ankle jerk), down going Babinski on left but neutral big toe position on right Cerebellum: decreased rate of rapid alternating movements of right hand compared to left, which patient states is at baseline since last CVA. Finger-to- nose intact bilaterally Gait: decreased right arm swing (residual from old CVA), stable walking Laboratory Results Last 24 Hours Test 08/22/17 14:43 08/22/17 17:26 08/22/17 17:36 08/22/17 17:44 Bedside Glucose 150 mg/dl 54 mg/dl 61 mg/dl Troponin I < 0.015 ng/ml Test 08/22/17 17:46 08/22/17 18:03 08/22/17 19:52 08/23/17 00:02 Bedside Glucose 66 mg/dl 91 mg/dl 168 mg/dl 210 mg/dl Test 08/23/17 06:32 White Blood Count 8.44 K/uL Red Blood Count 4.39 M/uL Hemoglobin 12.6 g/dL Hematocrit 38.5 % Mean Corpuscular Volume 87.7 fL Mean Corpuscular Hemoglobin 28.7 pg Mean Corpuscular Hemoglobin Concent 32.7 g/dl Platelet Count 297 K/uL Mean Platelet Volume 8.4 fL Neutrophils (%) (Auto) 46.7 % Lymphocytes (%) (Auto) 27.3 % Monocytes (%) (Auto) 9.5 % Eosinophils (%) (Auto) 15.6 % Basophils (%) (Auto) 0.5 % Neutrophils # (Auto) 3.95 K/uL Lymphocytes # (Auto) 2.30 K/uL Monocytes # (Auto) 0.80 K/uL Eosinophils # (Auto) 1.32 K/uL Basophils # (Auto) 0.04 K/uL RDW Standard Deviation 44.5 fL RDW Coefficient of Variation 13.7 % Immature Granulocyte % (Auto) 0.4 % Immature Granulocyte # (Auto) 0.03 K/uL Sodium Level 138 mmol/L Potassium Level 4.5 mmol/L Chloride Level 105 mmol/L Carbon Dioxide Level 27 mmol/L Anion Gap 6.0 mmol/L Blood Urea Nitrogen 12 mg/dl Creatinine 0.96 mg/dl Est Creatinine Clear Calc Drug Dose 73.7 ml/min Estimated GFR () 96.4 Estimated GFR (Non- 83.2 BUN/Creatinine Ratio 12.6 Random Glucose 140 mg/dl Estimated Average Glucose 194 mg/dl Hemoglobin A1c 8.4 % Calcium Level 8.6 mg/dl Triglycerides Level 141 mg/dl Cholesterol Level 118 mg/dl HDL Cholesterol 45 mg/dl LDL Cholesterol, Calculated 45 mg/dl VLDL Cholesterol, Calculated 28 mg/dl Cholesterol/HDL Ratio 2.6 Assessment & Plan Jae Mills is a 62 yo male, with PMHx significant for DM2, presented complaining of difficulty speaking, left neck/headache, and right hand weakness yesterday morning. Currently, his symptoms have resolved (except for his old CVA residual symptoms). His non-contrast CT showed only old multifocal infarcts without acute findings. His MRI showed a small area of acute/subacute left temporal cortex ischemia. His Doppler of his neck showed >70% stenosis of the left carotid and high grade stenosis of the right external carotid. Echocardiogram was normal. Differential included TIA vs. CVA. His symptoms have resolved within 24 hours suggesting TIA, but his imaging indicate a stroke of acute/subacute origin. He has risk factors for CVA including carotid stenosis and diabetes. He has been on plavix since his last stroke in 2012, when he was switched from aspirin to plavix. Plan: CVA, left temporal cortex ischemia, subacute/acute - Continue plavix, but add 81mg aspirin - CT angiography to see extent of vessel disease Diabetes, chronic - Manage risk factors for stroke (random glucose 213) - Glucose check with meals, sliding scale insulin as needed - Peripheral neuropathy follow-up as out-patient
--- NOTE | 2017-08-23 13:09 | DIAGNOSTIC IMAGING REPORT ---
CT HEAD ANGIO WITH CONTRAST CLINICAL HISTORY: Left-sided stroke TECHNIQUE: CT angiography of the head was performed in a dynamic helical fashion during intravenous administration of 94 cc of Optiray 320. A dose lowering technique was utilized adhering to the principles of ALARA. MIP imaging was performed. CT DOSE: 625.54 mGy.cm COMPARISON STUDY: CT scan the head dated 08/22/2017, MRI the brain dated 08/22/2017 FINDINGS: There are no lesion suspicious for aneurysm. There are no major intracranial branch occlusions. The dural venous sinuses appear patent. There are atheromatous changes present within the left internal carotid as it enters the skull base. There are atheromatous changes present within the right cavernous carotid. The right A1 segment is hypoplastic. There are no pathologically enhancing lesions. There are old left hemispheric infarcts. There is bifrontal encephalomalacia. There is a right mastoid effusion IMPRESSION: 1. No evidence of major intracranial branch occlusion 2. No evidence of aneurysm 3. Atherosclerotic carotid disease 4. Old left hemispheric infarcts. Bifrontal encephalomalacia 5. Right mastoid effusion Electronically signed by: Denilson Espitia M.D. 08/23/2017 1:07 PM Dictated Date/Time: 08/23/2017 1:01 PM
--- NOTE | 2017-08-23 13:15 | DIAGNOSTIC IMAGING REPORT ---
NECK ANGIO WITH CONTRAST HISTORY: Mental status change stroke TECHNIQUE: Multiaxial CT images of the neck were performed following the intravenous administration of contrast to evaluate the major cervical vessels. Maximum intensity projection images were also obtained. All measurements were calculated based on NASCET criteria. A dose lowering technique was utilized adhering to the principles of ALARA. COMPARISON STUDY: 09/09/2016 carotid Doppler 08/22/2017 FINDINGS: Considerable atherosclerotic change thoracic aorta minimally progressive from the prior study. The common carotid artery show no significant stenotic process. Mild multilevel atherosclerotic narrowing of the right internal carotid artery. Maximum narrowing is 40-50% area Moderate multifocal narrowing left internal carotid artery estimated 50-70% level. His proxy 70% at its origin. Multifocal 50 present narrowing is present in the proximal to mid left mid carotid artery. No significant stenotic process involving the vertebral basilar system. IMPRESSION: 1. Multifocal moderate narrowing of the right internal carotid artery. This is estimated at maximum 40-50% narrowing 2. 50-70% multifocal narrowing left internal carotid artery most significant at 70% at its origin. 3. Findings a slightly progressive compared to the patient's prior studies. The above report was generated using voice recognition software. It may contain grammatical, syntax or spelling errors. Electronically signed by: Eliseo Molina M.D. 08/23/2017 1:13 PM Dictated Date/Time: 08/23/2017 1:01 PM
--- NOTE | 2017-08-23 13:38 | Discharge Instructions ---
Discharge Instructions Date of Service Aug 23, 2017. Admission Reason for Admission: TIA Discharge Discharge Diagnosis / Problem: CVA (stroke) Discharge Goals Goal(s): Decrease discomfort, Improve disease control, Learn about illness, Diagnostic testing, Therapeutic intervention, Prevent Disease Progression Activity Recommendations Activity Limitations: resume your previous activity . Instructions / Follow-Up Instructions / Follow-Up Neurology has recommended you start Aspirin 81 mg daily Continue all other regular home medications You were found to have carotid artery stenosis (narrowing of the vessel that supply blood to your brain). It is recommended you follow-up with your PCP to further discuss treatment options/management. You were interested in follow-up with Endocrinology. Please follow-up w/ your PCP. If you decide to see Endocrinology, your PCP can place a referral. Risk Factors for Stroke: You can reduce your chances of stroke by working with your medical provider to adopt a healthy lifestyle. Some specific ways to lower your chance of stroke are: * If you are a smoker, now is the time to stop smoking cigarettes * If you are diabetic, improve the control of your blood sugars * Avoid excessive amounts of alcohol * Control high blood pressure * Lose weight if you are overweight * Be sure to lead an active lifestyle * Eat a healthy diet low in salt, cholesterol and fat You should know about other risk factors for stroke that you are unable to control. These include: * Age 55 years or older * Male gender * Certain racial groups: , or / * Family History of Stroke, Mini stroke or Heart Attack * Sickle Cell Disease Follow Up: It is important for you to keep your follow up appointments with your medical provider. Please follow-up with your PCP within 5-7 days You have requested to follow-up with a [facility]iz provider- a referral has been placed; if you do not hear of an appointment in the next 24 hours, please call the office to confirm appointment. Please follow-up with Neurology as instructed by Dr. Deleon Please follow-up/keep all of your subspecialty appointments Current Hospital Diet Patient's current hospital diet: Diabetes Type 2 Diet Discharge Diet Recommended Diet: Diabetes Type 2 Diet Pending Studies Studies pending at discharge: no Laboratory Results Hemoglobin A1c Test 08/23/17 06:32 Range/Units Estimated Average Glucose 194 mg/dl Hemoglobin A1c 8.4 H 4.5-5.6 % Lipid Panel Test 08/23/17 06:32 Range/Units Triglycerides Level 141 0-150 mg/dl Cholesterol Level 118 0-200 mg/dl HDL Cholesterol 45 mg/dl Cholesterol/HDL Ratio 2.6 LDL Cholesterol, Calculated 45 mg/dl Medical Emergencies . Who to Call and When: Medical Emergencies: Call 911 immediately if you experience any of the following warning signs and symptoms of Stroke: * Sudden numbness or weakness of the face, arm or leg, especially on one side of the body * Sudden confusion, trouble speaking or understanding * Sudden trouble seeing in one or both eyes * Sudden trouble walking, dizziness, loss of balance or coordination * Sudden severe headache with no cause Do not delay calling 911 if you experience any warning signs or symptoms of a stroke. Delay in seeking medical attention may affect what treatments can be given to you. . Non-Emergent Contact Non-Emergency issues call your: Primary Care Provider . . "Provider Documentation" section prepared by Su Rocha. . Stroke Core Measures Reason no t-PA for Stroke: Treatment not indicated Reason no antithrom by day 2: Treatment provided - N/A Reason no antithrom at D/C: Treatment provided - N/A Reason no statin at D/C: Treatment provided - N/A Reason no anticoag w/a fib: Treatment not indicated VTE Core Measure Inpt VTE Proph given/why not?: SCD's
[2017-08-23] MEDS ORDERED: ASPEC81 PO (13:39)
--- NOTE | 2017-08-23 13:55 | Discharge Summary ---
Discharge Summary Date of Service Aug 23, 2017. (Su Rocha PA-C) Discharge Summary Admission Date: Aug 22, 2017 at 13:45 Discharge Date: Aug 23, 2017 Discharge Disposition: Home Principal Diagnosis: CVA Problems/Secondary Diagnoses: HLD Carotid artery stenosis Chronic dysphagia T2DM Wheezing h/o tobacco abuse HTN Procedures: HEAD WITHOUT CONTRAST (CT) CT DOSE: 638.56 mGycm HISTORY: Mental status change Stroke TECHNIQUE: Multiaxial CT images of the head were performed without the use of intravenous contrast. A dose lowering technique was utilized adhering to the principles of ALARA. Comparison: None. Findings: The paranasal sinuses and mastoid air cells are clear. The calvarium and skull base are intact. The ventricles and sulci are within normal limits. There is no mass, hematoma, midline shift, or acute infarct. There are findings of old infarcts involving the left frontal lobe, to lesser extent right frontal lobe, as well as left parietal lobe region. There is no evidence for acute intracranial hemorrhage. There is no midline shift. Impression: Multifocal old infarcts bilaterally. No acute intracranial abnormality. The above report was generated using voice recognition software. It may contain grammatical, syntax or spelling errors. Electronically signed by: Eliseo Molina M.D. 08/22/2017 10:45 AM Dictated Date/Time: 08/22/2017 10:43 AM The status of this report is Signed. Draft = Not yet reviewed or approved by Radiologist. Signed = Reviewed and approved by Radiologist. CHEST ONE VIEW PORTABLE CLINICAL HISTORY: Stroke mental status change COMPARISON STUDY: 12/24/2015 FINDINGS: The bones soft tissues and hemidiaphragms are normal. The cardiomediastinal silhouette is normal. The lungs are clear. The pulmonary vasculature is normal. IMPRESSION: Negative chest. The above report was generated using voice recognition software. It may contain grammatical, syntax or spelling errors. Electronically signed by: Eliseo Molina M.D. 08/22/2017 10:38 AM Dictated Date/Time: 08/22/2017 10:38 AM The status of this report is Signed. Draft = Not yet reviewed or approved by Radiologist. Signed = Reviewed and approved by Radiologist. BILATERAL CAROTID DOPPLER STUDY HISTORY: Stroke COMPARISON: Neck CTA 09/09/2016. TECHNIQUE: Real-time, grayscale, and color Doppler sonography of the carotid arteries was performed. Imaging reviewed in the transverse and longitudinal planes. All measurements were calculated based on NASCET criteria. FINDINGS: Antegrade flow is seen in the bilateral vertebral arteries. The brachial pressures are hemodynamically similar. Severe calcified plaque within the bilateral internal carotid arteries and right external carotid artery. Mild to moderate calcified plaque within the left external carotid artery. The peak systolic velocity within the right ICA is 189 cm/s distally. The right systolic ratio is 2.9. The peak systolic velocity within the left ICA is 276 cm/s at the midportion. The left systolic ratio is 2.8. High-grade stenosis within the right external carotid artery and mild stenosis within the left external carotid artery. IMPRESSION: 1. Greater than 70% stenosis within the mid left internal carotid artery. 2. 50-69% stenosis within the distal right internal carotid artery. 3. High-grade stenosis within the right external carotid artery. Electronically signed by: Carlin Dumont M.D. 08/22/2017 5:28 PM Dictated Date/Time: 08/22/2017 5:25 PM The status of this report is Signed. Draft = Not yet reviewed or approved by Radiologist. Signed = Reviewed and approved by Radiologist. MRI OF THE BRAIN COMBO CLINICAL HISTORY: Strokelike symptoms. COMPARISON STUDY: CT of the brain dated 08/22/2017. TECHNIQUE: MRI of the brain was performed utilizing various T1 and T2-weighted sequences in the axial, sagittal, and coronal planes. Contrast-enhanced sequences were acquired following the administration of 7 cc of Gadavist. The examination is degraded by motion artifact. FINDINGS: Brain parenchyma: There are age-related involutional changes noting mild to moderate patchy subcortical and periventricular microangiopathic disease. Foci of bilateral frontal and left parietal encephalomalacia are consistent with remote infarcts. Tiny chronic lacunar infarcts identified in the left caudate head and the left cerebellar hemisphere. There are punctate foci of restricted diffusion identified within the medial left temporal cortex seen on axial image #13. There is no hemorrhage or mass effect. No enhancing mass lesion is identified on the postcontrast images. Hicks-white matter differentiation is preserved. No extra-axial fluid collection is seen. The cerebellar tonsils are normal in configuration. Ventricles, sulci, and cisterns: Prominent secondary to involutional change. Pituitary and sella: Unremarkable. Intracranial vasculature: Normal flow voids are maintained at the skull base. Orbits: The bony orbits are grossly intact. Orbital contents are normal in appearance. Sinuses and mastoids: There is a right mastoid effusion. The left mastoid air cells and paranasal sinuses are clear. Calvarium: Unremarkable. Cervical cord: Partially visualized cervical spinal cord is normal in morphology and signal intensity. IMPRESSION: 1. There are punctate foci of restricted diffusion in the medial left temporal cortex consistent with acute to subacute ischemia. 2. No additional foci of acute ischemia are identified. There is no hemorrhage, enhancing mass, or midline shift. 3. Senescent changes and remote infarcts as above. 4. Right mastoid effusion. Electronically signed by: Justin Scherer M.D. 08/22/2017 4:46 PM Dictated Date/Time: 08/22/2017 4:41 PM The status of this report is Signed. Draft = Not yet reviewed or approved by Radiologist. Signed = Reviewed and approved by Radiologist. NECK ANGIO WITH CONTRAST HISTORY: Mental status change stroke TECHNIQUE: Multiaxial CT images of the neck were performed following the intravenous administration of contrast to evaluate the major cervical vessels. Maximum intensity projection images were also obtained. All measurements were calculated based on NASCET criteria. A dose lowering technique was utilized adhering to the principles of ALARA. COMPARISON STUDY: 09/09/2016 carotid Doppler 08/22/2017 FINDINGS: Considerable atherosclerotic change thoracic aorta minimally progressive from the prior study. The common carotid artery show no significant stenotic process. Mild multilevel atherosclerotic narrowing of the right internal carotid artery. Maximum narrowing is 40-50% area Moderate multifocal narrowing left internal carotid artery estimated 50-70% level. His proxy 70% at its origin. Multifocal 50 present narrowing is present in the proximal to mid left mid carotid artery. No significant stenotic process involving the vertebral basilar system. IMPRESSION: 1. Multifocal moderate narrowing of the right internal carotid artery. This is estimated at maximum 40-50% narrowing 2. 50-70% multifocal narrowing left internal carotid artery most significant at 70% at its origin. 3. Findings a slightly progressive compared to the patient's prior studies. The above report was generated using voice recognition software. It may contain grammatical, syntax or spelling errors. Electronically signed by: Eliseo Molina M.D. 08/23/2017 1:13 PM Dictated Date/Time: 08/23/2017 1:01 PM The status of this report is Signed. Draft = Not yet reviewed or approved by Radiologist. Signed = Reviewed and approved by Radiologist. CT HEAD ANGIO WITH CONTRAST CLINICAL HISTORY: Left-sided stroke TECHNIQUE: CT angiography of the head was performed in a dynamic helical fashion during intravenous administration of 94 cc of Optiray 320. A dose lowering technique was utilized adhering to the principles of ALARA. MIP imaging was performed. CT DOSE: 625.54 mGy.cm COMPARISON STUDY: CT scan the head dated 08/22/2017, MRI the brain dated 08/22/2017 FINDINGS: There are no lesion suspicious for aneurysm. There are no major intracranial branch occlusions. The dural venous sinuses appear patent. There are atheromatous changes present within the left internal carotid as it enters the skull base. There are atheromatous changes present within the right cavernous carotid. The right A1 segment is hypoplastic. There are no pathologically enhancing lesions. There are old left hemispheric infarcts. There is bifrontal encephalomalacia. There is a right mastoid effusion IMPRESSION: 1. No evidence of major intracranial branch occlusion 2. No evidence of aneurysm 3. Atherosclerotic carotid disease 4. Old left hemispheric infarcts. Bifrontal encephalomalacia 5. Right mastoid effusion Electronically signed by: Denilson Espitia M.D. 08/23/2017 1:07 PM Dictated Date/Time: 08/23/2017 1:01 PM The status of this report is Signed. Draft = Not yet reviewed or approved by Radiologist. Signed = Reviewed and approved by Radiologist. ECHOCARDIOGRAM: Interpretation Summary * Name: MARK MILLS Study Date: 08/23/2017 06:38 AM BP: 147/77 mmHg * Patient [facility]: [facility]S\\1 HR: 71 * : 1955 (M/d/yyyy) Gender: Male Height: 70 in * Age: 62 yrs Ethnicity: [place] Weight: 155 lb * Ordering Physician: Namita Melendez * Referring Physician: Self, Referred * Performed By: Dany Garcia RCS * * Reason For Study: CVA, Possible Underlying Arrhythmia * BSA: 1.9 m2 * No cardiac source of emboli noted. * -- Conclusions -- * Left ventricular systolic function is normal. * Injection of contrast documented no interatrial shunt. Procedure Details * A complete two-dimensional transthoracic echocardiogram was performed (2D, M-mode, Doppler and color flow Doppler). * A saline contrast injection was performed to assess for cardiac shunting. * The injection was performed through an intravenous line in the left arm. * The attending nurse who injected the saline contrast was Jaylan Ribeiro RN. * A total of 20 cc of agitated saline was given. Left Ventricle * The left ventricle is normal in size. * There is normal left ventricular wall thickness. * Ejection Fraction = 60-65%. * Left ventricular systolic function is normal. * The left ventricular wall motion is normal. Right Ventricle * The right ventricle is normal in size and function. Atria * The left atrial size is normal. * The right atrium is borderline dilated. * Injection of contrast documented no interatrial shunt. Mitral Valve * The mitral valve is grossly normal. * Significant mitral regurgitation is absent. Tricuspid Valve * The tricuspid valve is not well visualized, but is grossly normal. * Significant tricuspid regurgitation is absent. Aortic Valve * The aortic valve is normal in structure and function. * No hemodynamically significant valvular aortic stenosis. * There is no significant aortic regurgitation. Great Vessels * The aortic root is normal size. Pericardium/Pleural * There is no pericardial effusion. Great Vessels * Normal inferior vena cava diameter and respiratory variation suggests normal central venous pressure. Consultations: Neurology (Su Rocha, PA-C) Medication Reconciliation New Medications: Aspirin (Aspirin EC Low Dose) 81 Mg Ectab 81 MG PO QAM for 30 Days Continued Medications: Atorvastatin (Lipitor) 20 Mg Tab 20 MG PO QPM, TAB Clopidogrel Bisulfate (Plavix) 75 Mg Tab 75 MG PO QPM, TAB Enalapril Maleate (Enalapril Maleate) 20 Mg Tab 20 MG PO QPM for 90 Days, TAB 3 Refills Insulin Isophane & Reg (Human) (Humulin 70/30 Kwikpen (70-30) 100 Unit/ml) 1 Inj Inj 30 UNITS SC QAM Insulin Isophane & Reg (Human) (Humulin 70/30 Kwikpen (70-30) 100 Unit/ml) 1 Inj Inj 20 UNITS SQ QPM Discharge Exam Review of Systems: Constitutional: No fever, No chills, No sweats, No weakness, No fatigue Eyes: No worsening of vision ENT: No hearing loss Respiratory: No cough, No shortness of breath, No hemoptysis Cardiovascular: No chest pain, No edema, No palpitations Abdomen: No pain, No nausea, No vomiting, No diarrhea, No constipation, No GI bleeding Musculoskeletal: No joint pain, No muscle pain, No swelling, No calf pain Genitourinary - Female: No dysuria, No hematuria Neurologic: No weakness, No numbness/tingling Psychiatric: No depression symptoms, No anxiety Endocrine: No fatigue Hematologic / Lymphatic: No abnormal bleeding/bruising Integumentary: No rash, No itch, No new/changing skin lesions Physical Exam: General Appearance: no apparent distress Eyes: normal inspection, PERRL ENT: hearing grossly normal Neck: supple Respiratory/Chest: lungs clear, no respiratory distress, no accessory muscle use Cardiovascular: regular rate, rhythm Abdomen / GI: normal bowel sounds, non tender, soft Extremities: no calf tenderness, no pedal edema Neurologic/Psychiatric: alert, normal mood/affect, oriented x 3 Skin: normal color, warm/dry, no rash (Su Rocha, PA-C) Hospital Course Admission H&P: Mr. Mills is a 62 y/o male with PMHx of Isolated Hodgkins Lymphoma S/P Resection x 35 years ago, T2DM, HTN, HLD, and CVA in 2015 who presents to the ED c/o R hand/wrist weakness that started last evening. Patient reports R residual deficits from his previous CVA but stating he was "95%" recovered. Last night, patient noticed some numbness/tingling of the R hand/wrist but no other symptoms and went to bed. He awoke at 0830 and stated he felt "off" and had R hand numbness/tingling and weakness that he reports seemed to improve and worsen. Per , she noted that he appeared to have difficulty finding his words and a waxing and waning L facial droop. He reports his symptoms resolved on the ambulance ride to the hospital. Associated posterior headache that started prior to the symptoms but currently resolved. States he had frequent headaches as a child but no migraine history. He denies lower extremity neurological deficits. He is a diabetic who was recently instructed to switch to Lantus from 70/30 but could not give the dosing and states he hasn't started Lantus because he still had 70/30 to use. He believes his last A1c was 8. He is also an intermittent smoker and states he smokes approx. 2 cigarettes every few days. He reports that he had a previous carotid u/s that revealed 60% stenosis. He also reports chronic dysphagia that occurs nearly daily but occurs intermittently throughout the day. He denies H/O arrhythmia but states prior to a previous surgery the anesthesiologist mentioned something about his heart but he cannot recall specifics. Of note, patient reports taking an antibiotic for approx. 10-14 days from reported pneumonia. He is unable to state what this antibiotic is and reports completed the regimen. He states he was on it initially 10 days and then his symptoms did not improve and he took it longer. He denies a diagnosis of underlying pulmonary disease. Physical Exam Vital Signs Date Time Temp Pulse Resp B/P (MAP) Pulse Ox O2 Delivery O2 Flow Rate FiO2 08/22/17 12:40 98 Room Air 08/22/17 12:25 73 16 128/74 98 Room Air 08/22/17 11:30 71 16 97 Room Air 08/22/17 10:46 79 08/22/17 10:08 97 Room Air 08/22/17 10:08 36.8 97 18 113/73 97 Room Air General Appearance: WD/WN, no apparent distress, + thin Head: normocephalic, atraumatic Eyes: sclerae normal ENT: hearing grossly normal, + pertinent finding (mildly erythematous pharynx without exudates) Neck: supple, no JVD, trachea midline Respiratory/Chest: no respiratory distress, no accessory muscle use, + wheezing (diffuse) Cardiovascular: regular rate, rhythm, no gallop, no murmur Abdomen/GI: normal bowel sounds, non tender, soft Extremities/Musculoskelatal: no calf tenderness, no pedal edema Neurologic/Psych: no motor/sensory deficits, alert, normal mood/affect, oriented x 3 Skin: normal color, warm/dry Hospital Course: Mr. Mills is a 62 y/o male with PMHx of Isolated Hodgkins Lymphoma S/P Resection x 35 years ago, T2DM, HTN, HLD, and CVA in 2015 who presents to the ED c/o R hand/wrist weakness that started last evening. CVA- L Temporal Cortex: - Admitted to [facility] for cardiac monitoring- no acute events - Trended cardiac enzymes- negative - Head CT, brain MRI, CTA head/neck, ECHO obtained - Continue Plavix 75 mg daily and Atorvastatin 20 mg daily - Consulted neurology, appreciate recommendations- add ASA 81 mg daily Carotid artery stenosis: - Recommend f/u w/ PCP - Continue Plavix, ASA, Atorvastatin Chronic dysphagia: Speech evaluation- no recommendations T2DM- HgbA1c 8.4 %: - Resume home regimen at discharge and f/u w/ PCP- patient interested in Endocrinology f/u- PCP can place referral -- States he is to start Lantus- just got prescription filled but has not started it yet- will not make any changes to regimen at this time - Lantus 6 u BID+ BSG ACHS and ISS while inpatient - Diabetic counselling consult HTN: Continue Enalapril Wheezing, h/o tobacco abuse: - DuoNebs DB and PRN - Tobacco cessation counselling DVT prophylaxis: Ambulation Dispo: Discharge to home Total Time Spent: Greater than 30 minutes This includes examination of the patient, discharge planning, medication reconciliation, and communication with other providers. (Su Rocha PA-C) PA Physician Supervision Note: I interviewed and examined the patient. Discussed with Su Rocha PAC and agree with findings and plan as documented in the note. Any exceptions or clarifications are listed here: None Patient here with confirmed left CVA. He has a 70% left carotid artery stenosis seen on both carotid ultrasounds and CTA. I personally discussed this case with Dr. Deleon who recommended adding aspirin to his Plavix with follow-up with his PCP and consider carotid endarterectomy after patient recovers for 6 months from this acute stroke Vital signs are stable Neurologically he is awake alert appropriate there are no deficits remaining Patiently discharged with PCP follow-up, he requests to establish care with the [facility] physician group in [place] continue antiplatelet therapy and statin therapy along with secondary risk prevention by risk factor reduction Documented By: Hasmukh Gifford (Hasmukh Gifford M.D.) Discharge Instructions Please refer to the electronic Patient Visit Report (Discharge Instructions) for additional information. (Su Rocha PA-C) Follow-Up Please follow-up with your PCP within 5-7 days Please follow-up with Neurology as instructed by Dr. Deleon Please follow-up/keep all of your subspecialty appointments (Su Rocha PA-C)
--- NOTE | 2017-08-23 16:16 | Pharmacy Progress Note ---
Pharmacist Stroke Counseling Date of Service Aug 23, 2017. Scope Pharmacy has been consulted to provide medication discharge counseling for this patient admitted with ischemic stroke/ transient ischemic attack as per the Pharmacist Discharge Counseling for Stroke Patients Protocol. Medications on Discharge New Medications: Aspirin (Aspirin EC Low Dose) 81 Mg Ectab 81 MG PO QAM for 30 Days Continued Medications: Atorvastatin (Lipitor) 20 Mg Tab 20 MG PO QPM, TAB Clopidogrel Bisulfate (Plavix) 75 Mg Tab 75 MG PO QPM, TAB Enalapril Maleate (Enalapril Maleate) 20 Mg Tab 20 MG PO QPM for 90 Days, TAB 3 Refills Insulin Isophane & Reg (Human) (Humulin 70/30 Kwikpen (70-30) 100 Unit/ml) 1 Inj Inj 30 UNITS SC QAM Insulin Isophane & Reg (Human) (Humulin 70/30 Kwikpen (70-30) 100 Unit/ml) 1 Inj Inj 20 UNITS SQ QPM Action The above medications, specifically ones for stroke treatment/prophylaxis, have been reviewed in detail with the patient prior to discharge. This includes indication, common adverse reactions, drug interactions, and medication administration. Outcome The patient has demonstrated understanding of the medications. Please note, they are aware that the pharmacist will call them within 72 hours post-discharge to confirm that the appropriate medications are being taken and answer any further medication related questions the patient might have at that time. Contact information Individual to be contacted: Jae (patient) Phone number: . OK to call 's cell if he does not answer: Best time to call: anytime Additional comments: - Spoke w Jae extensively about addition of aspirin. He reports he was on a baby aspirin in the past but was switched to clopidogrel after his previous stroke. He acknowledged understanding that he is to take both now. - Jae denied ever using Prilosec/omeprazole for heartburn. Encouraged him to continue to avoid this medication 2nd possible DDI with clopidogrel - Discussed atorvastatin as well. Discharge dose to remain at 20 mg (despite this not being intensive lipid-lowering dose) likely because LDL is < 70 on current dose. - Jae noted his experience/admission here at [facility] was superior to his previous admission for stroke at a different institution Thank you for allowing pharmacy to be involved in the care of this patient. Please call [phone] or [phone] with any additional questions
[2017-08-24] MEDS ORDERED: ASPIRIN 81 MG ECTAB PO SCH (09:00)
--- NOTE | 2017-08-25 11:20 | Pharmacy Progress Note ---
Pharmacist Post D/C Phone Note Date of phone call: Aug 25, 2017. Individual with whom pharmacist spoke to: Jae Mills (patient) The following questions were reviewed during the phone call with responses listed below each: Can you tell me the medications that you are currently taking as well as when and how you take each medication? Reported Home Medications Medications Dose Route/Sig Max Daily Dose Days Date Category Aspirin EC Low Dose (Aspirin) 81 Mg Ectab 81 Mg PO QAM 30 08/23/17 Rx Humulin 70/30 Kwikpen (70-30) 100 Unit/ml (Insulin Isophane & Reg (Human)) 1 Inj Inj 20 Units SQ QPM 08/22/17 Reported Humulin 70/30 Kwikpen (70-30) 100 Unit/ml (Insulin Isophane & Reg (Human)) 1 Inj Inj 30 Units SC QAM 08/22/17 Reported Enalapril Maleate 20 Mg Tab 20 Mg PO QPM 90 12/24/15 Reported Plavix (Clopidogrel Bisulfate) 75 Mg Tab 75 Mg PO QPM 12/24/15 Reported Lipitor (Atorvastatin Calcium) 20 Mg Tab 20 Mg PO QPM 08/12/15 Reported When have you missed any doses of your medications? - Denies; on very limited number of medications. What side effects are you having from your medications? - Denies. Aware to monitor for s/sx bleeding and bruising on dual anti- platelet therapy What questions do you have about your medications? - No questions at this time. Most are chronic medications from prior to admission. Seems familiar with them. What problems are you having obtaining your medications? - Denies, has good insurance. When is your next appointment with your primary care doctor? - 08/29/17; establishing new PCP in [place] Additional comments: - Patient currently takes aspirin in the AM; advised him that he can take in PM with other medications. - Keeps Rx bottles in medicine cabinet in bathroom; advised against this due to moisture. He will move them to night machine greaser bedroom next to insulin. As per the Pharmacist Discharge Counseling for Stroke Patients Protocol, this phone call has been completed within 72 hours of discharge. Thank you for allowing us to be involved in the care of this patient.
== END 2017-08-23 16:42 | disposition home or self-care (01) ==
LOC: C.EDB 10:08 → EDBD 10:08 → C.2T 13:45 → ENRESERV 13:56
PROVIDERS: ADMIT Family Medicine; ATTEND Family Medicine
DX: I63.9 Cerebral infarction, unspecified (principal); I65.29 Occlusion and stenosis of unspecified carotid artery; I10 Essential (primary) hypertension; E78.5 Hyperlipidemia, unspecified; E11.9 Type 2 diabetes mellitus without complications; R13.10 Dysphagia, unspecified; Z86.73 Personal history of transient ischemic attack (TIA), and cerebral infarction without residual deficits; Z87.891 Personal history of nicotine dependence; Z79.02 Long term (current) use of antithrombotics/antiplatelets; Z79.4 Long term (current) use of insulin; Z79.899 Other long term (current) drug therapy

== ENCOUNTER → 2017-11-06 | Outpatient (CLI) | payer OTHER ==
[~2017-11-06] MED LIST changes: +ASPEC81 PO; +CLOP1TAB5 PO; +ENAL20TA PO; -INSU1INJ SC; +INSU3INJ2 SC; +INSU3INJ2 SQ; -SODIUM CHLORIDE 0.9% 1000ML 1,000 ML IV SCH
--- NOTE | 2017-11-06 08:44 | DIAGNOSTIC IMAGING REPORT ---
(BARIUM SWALLOW) ESOPHAGUS CLINICAL HISTORY: DYSPHAGIApain COMPARISON STUDY: None FLUOROSCOPY TIME: 2.6 minutes. FINDINGS: Patient initiated swallowing function well. There is persistent vallecular pooling. There is a trace amount of penetration. There is no evidence for aspiration. There is a small zenkers diverticulum. The tablet is lies within these anchors diverticulum. Remainder the esophagus is mild esophageal irritability and spasm. There is a small hiatal hernia. There are findings of mild reflux. IMPRESSION: 1. Persistent vallecular pooling with a trace amount of penetration. 2. No evidence for aspiration. 3. Small Zenker's diverticulum which contains ingested barium tablet. 4. Mild esophageal dysmotility. 5. Small hiatal hernia with mild gastroesophageal reflux. The above report was generated using voice recognition software. It may contain grammatical, syntax or spelling errors. Electronically signed by: Eliseo Molina M.D. 11/06/2017 8:43 AM Dictated Date/Time: 11/06/2017 8:39 AM
== END | disposition home or self-care (01) ==
LOC: C.RAD 07:54
PROVIDERS: ATTEND Physician Assistant
DX: R13.10 Dysphagia, unspecified (principal); K22.5 Diverticulum of esophagus, acquired; K22.4 Dyskinesia of esophagus; K21.9 Gastro-esophageal reflux disease without esophagitis; K44.9 Diaphragmatic hernia without obstruction or gangrene

== ENCOUNTER → 2017-12-05 | Outpatient (CLI) | payer OTHER ==
[2017-12-05 18:44] LABS: CREATININE RANDOM URINE 62.3 mg/dl
== END | disposition home or self-care (01) ==
LOC: C.LABPBG 11:22
PROVIDERS: ATTEND Nurse Practitioner Family
DX: E11.9 Type 2 diabetes mellitus without complications (principal)

== ENCOUNTER → 2018-03-13 | Outpatient (CLI) | payer OTHER ==
[~2018-03-13] MED LIST changes: -ASPEC81 PO; +ASPI-320 PO
--- NOTE | 2018-03-13 14:16 | DIAGNOSTIC IMAGING REPORT ---
VIDEO SWALLOW STUDY CLINICAL HISTORY: Dysphagia. COMPARISON STUDY: Barium esophagram dated 11/06/2017. Fluoroscopy time: 2.5 minutes. FINDINGS: Fluoroscopic guidance was provided to the Department of Speech Pathology in performing a video swallow study. The patient consumed barium-impregnated pudding, nectar thick liquid, and thin barium, the swallowing mechanism was observed in real-time. Mild aspiration was seen with the thin barium and nectar liquid textures. No aspiration was seen with the pudding texture. There was retention of ingested material within the vallecula and piriform sinuses. Esophageal dysmotility was observed. IMPRESSION: 1. Aspiration was seen with the thin barium and nectar thick liquid textures. 2. Esophageal dysmotility. 3. See dedicated Speech Pathology report for detailed findings and recommendations. Dictated: 03/13/2018 1:42 PM Transcribed: 03/13/2018 2:15 PM Ya Electronically signed by: Justin Scherer M.D. 03/13/2018 2:15 PM Dictated Date/Time: 03/13/2018 1:42 PM
--- NOTE | 2018-03-13 17:43 | SWALLOWING EVALUATION ---
HISTORY: This 62 year old man was referred to [facility] ([facility]) for a Video Fluoroscopic Swallow Study (VFSS) in order to rule out aspiration, and identify the safest consistencies for oral intake. The patient is reporting significant swallowing difficulty, in that he feels food building up in his throat and that at times he has to cough it out. He participated in a Barium Swallow study in October 2017 which revealed a small Zenker's Diverticulum, laryngeal penetration, but no aspiration. Esophageal dysmotility, a small hiatal hernia, and reflux were also found. The patient reports he is to participate in an EGD next week and then follow up with Dr. Muhammad, referring physician, for possible surgical repair of the Zenker's. PMH is significant for Hodgkin's Lymphoma, DM2, HTN, HLD, CVA, and TIA. Current diet at home is soft. PROCEDURE: The patient was seen in the Radiology Department of [facility] for the VFSS. Cursory examination of the oral cavity revealed upper and lower dentures of adequate fit. Movement of the articulators was wnl. The patient was positioned upright on a stool for the procedure and was viewed in both the Anterior-Posterior (A-P) and Lateral planes. Volitional phonation exercises completed in the A-P plane revealed vocal fold adduction to be wnl. In the lateral plane, the patient was given the following boluses: 1 tsp. thin liquid barium x 2, single swallow thin liquid barium self-presented from a cup, 1 tsp. nectar-thick liquid barium, single swallow nectar-thick liquid barium self-presented from a cup, and 1 tsp. barium pudding. The patient was then repositioned into the A-P plane and was given to following boluses for an esophageal scan: 1 tsp. nectar thick barium, and 1/2 teaspoon barium pudding. RESULTS: Oral Stage: Lip closure was adequate with no evidence of anterior loss. The patient was unable to maintain a cohesive liquid bolus upon command, with evidence of premature spillage of less than half the bolus. Mastication and lingual motion for bolus transport was slowed. There was retention along the tongue and palate after the initial swallow. The initiation of the pharyngeal swallow was significantly delayed and triggered when the bolus head reached the pyriforms. Pharyngeal Stage: Soft palate elevation was complete. Laryngeal elevation revealed partial superior movement of the thyroid cartilage and partial approximation of the arytenoids to the epiglottic base. Anterior hyoid excursion was absent. There was minimal to no epiglottic deflection. Laryngeal vestibular closure was in-complete with a narrow (and at times wide) column of contrast located in the vestibule at the height of the swallow. The pharyngeal stripping wave was absent. Pharyngeal contraction was incomplete. There was minimal distention and duration to the opening of the pharyngoesophageal segment (PES). Tongue base retraction was reduced, with a wide column of contrast located between the tongue base and pharyngeal wall during the swallow. At times there was no visible posterior motion of the tongue base. There was a diffuse collection of retention located along the tongue base, in the valleculae, along the posterior pharyngeal wall, and in the pyriforms after the swallow. This patient presents with severe pharyngeal dysphagia. There was evidence of deep laryngeal penetration with episodes of SILENT trickle aspiration with both thin and nectar thick liquids below the vocal folds. Some of this redirected but not fully. A chin tuck technique was attempted which resulted in laryngeal penetration, but assisted in reducing aspiration. There was no evidence of aspiration with the pudding, however the retention in the pharynx was significant and the patient was unable to clear this with repeated effortful swallows. He was cued to expectorate this retention and was only able to clear that from the valleculae and not the pyriforms. A liquid wash was given to attempt to clear the pyriform retention, but this did not fully clear and also resulted in small amounts of aspiration of the liquid. Aspiration is attributed to the patient's delayed swallow (boluses fell directly into the laryngeal vestibule prior to the swallow), and severe pharyngeal weakness with limited ROM of all pharyngeal musculature. Cervical osteophytes were also present and this impacted pharyngeal clearance in particular at the level of the PES. Esophageal Stage: There was distal esophageal retention noted. Although the patient has a known Zenker's Diverticulum, this was not noted for this study. SUMMARY/RECOMMENDATIONS: The patient presents with severe alla-pharyngeal dysphagia. He also has suspected esophageal dysfunction. He is a HIGH aspiration risk with any oral intake. Despite this, the patient has not had any recent pneumonia per his report and that of his spouse. He is likely tolerating the aspiration due to his active lifestyle. Both also reported that he has not lost any weight as of late and has actually gained some weight. Therefore, the following is recommended: 1. Moist Soft diet, "slippery" as tolerated. Avoid foods that are dry, thick, or pasty. Use condiments on foods to keep them moist. Modify to full liquids should any increased difficulty with soft solids be noted. 2. STRICT aspiration and GERD precautions. NO STRAWS. FULLY upright for meals and for 30 minutes after meals. Head of the bed should be elevated to at least 30 degrees at all times, to include while sleeping. 3. Stringent oral care. [place] all surfaces of the mouth and tongue prior to and after meals, and before bed. This will assist in reducing oral bacteria that can be aspirated in saliva. 4. Safe swallow strategies: Use of a chin tuck with all consistencies: take a small sip of liquid or small bite of food and hold in the mouth (food items must be masticated prior to holding in the mouth), tuck the chin to the chest, swallow while the chin is down 2-3 times as needed, lift the chin back up to neutral when swallow is completed. 5. Patient would benefit from outpatient dysphagia therapy JAILYN with focus on generalized pharyngeal strengthening exercises (i.e., effortful swallowing, Gabrielle maneuver, and Thong Maneuver for improved pharyngeal strength. May also benefit for a repeat video swallow study in 4-6 weeks to assess for any changes in status. A summary of the results and recommendations were provided to the patient and his spouse (with patient permission) with verbal understanding. The patient is very aware of foods he can and cannot tolerate but typically eats soups and other items such as oatmeal and liquids. He can tolerate some soft solids such as chicken with gravy. Thank you for referral of this patient. Please contact me at if any additional information is needed.
== END | disposition home or self-care (01) ==
LOC: C.RAD 10:46
PROVIDERS: ATTEND Surgery
DX: K22.4 Dyskinesia of esophagus (principal); K22.5 Diverticulum of esophagus, acquired

== ENCOUNTER → 2018-03-23 | Day surgery (SDC) | payer OTHER ==
[2018-03-15 09:16] VITALS: Ht 170.2 cm; Wt 75.0 kg
[~2018-03-23] VITALS: Ht 170.2 cm; Wt 75.0 kg
[~2018-03-23] MED LIST changes: +ASPCH81X PO; -ASPI-320 PO; +ENAL1TAB31 PO; -ENAL20TA PO; +ESOM20CA PO; -INSU3INJ2 SC; -INSU3INJ2 SQ; +LIDOCAINE HCL 2% 2 ML VIAL (20MG/ML) ONE; +NVLGI7030 SC; +PROPOFOL IV EMULSION 10 MG/ML 20 ML VIAL ONE; +SODIUM CHLORIDE 0.9% 500ML 500 ML IV ONE
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
--- NOTE | 2018-03-23 09:12 | GI REPORT ---
Patient Name: Jae Mills Procedure Date: 03/23/2018 8:47 AM Date of : 1955 Admit Type: Outpatient Age: 62 Gender: Male Attending MD: Carlos A Vaughn DO Procedure: Upper GI endoscopy Providers: Carlos A Vaughn DO Referring MD: Marlon Muhammad Md Indications: Dysphagia Medicines: Monitored Anesthesia Care Complications: No immediate complications. Estimated Blood Loss: Estimated blood loss: none. Procedure: Pre-Anesthesia Assessment: - Prior to the procedure, a History and Physical was performed, and patient medications and allergies were reviewed. The patient's tolerance of previous anesthesia was also reviewed. The risks and benefits of the procedure and the sedation options and risks were discussed with the patient. All questions were answered, and informed consent was obtained. Prior Anticoagulants: The patient last took aspirin 1 day and Plavix (clopidogrel) 6 days prior to the procedure. ASA Grade Assessment: III - A patient with severe systemic disease. After reviewing the risks and benefits, the patient was deemed in satisfactory condition to undergo the procedure. After obtaining informed consent, the endoscope was passed under direct vision. Throughout the procedure, the patient's blood pressure, pulse, and oxygen saturations were monitored continuously. The Scope was introduced through the mouth, and advanced to the second part of duodenum. The upper GI endoscopy was accomplished without difficulty. The patient tolerated the procedure well. Findings: A moderate Schatzki ring (acquired) was found at the gastroesophageal junction. A TTS dilator was passed through the scope. Dilation with a 15-16.5-18 mm balloon dilator was performed to 18 mm. A small hiatal hernia was present. The examined duodenum was normal. Impression: - Moderate Schatzki ring. Dilated. - Small hiatal hernia. - Normal examined duodenum. - No specimens collected. Recommendation: - Resume previous diet. - Continue present medications. - Repeat upper endoscopy PRN for retreatment. - Return to primary care physician as previously scheduled. Carlos A Vaughn DO 03/23/2018 9:12:02 AM This report has been signed electronically. Note Initiated On: 03/23/2018 8:47 AM Number of Addenda: 0 I attest to the content of the Intraoperative Record and orders documented therein, exceptions below {[id number]}
--- NOTE | 2018-03-23 09:38 | Discharge Instructions ---
Endoscopy Patient Instructions Date / Procedure(s) Performed March 23, 2018. EGD Allergy Information Coded Allergies: Penicillins (Verified Allergy, Unknown, UNKNOWN-HAD CHILD, 03/15/18) Discharge Date / Findings March 23, 2018. Schatzki's Ring s/p dilation Hiatal hernia Medication Instructions Stopped Medication(s): last dose ASA yesterday,last dose Plavix week ago OK to resume all medications today as prescribed Reported Home Medications Medications Dose Route/Sig Max Daily Dose Days Date Category Novolog Mix 70/30 (Insulin Aspart Protamine & Asp) 1 Inj Inj 30 Units SC QPM 03/15/18 Reported Novolog Mix 70/30 (Insulin Aspart Protamine & Asp) 1 Inj Inj 22-25 SC QAM 03/15/18 Reported Vasotec (Enalapril Maleate) 20 Mg Tab 1 Tab PO QPM 03/15/18 Reported Lipitor (Atorvastatin Calcium) 20 Mg Tab 20 Mg PO HS 03/15/18 Reported Plavix (Clopidogrel Bisulfate) 75 Mg Tab 75 Mg PO DAILY 03/15/18 Reported Aspirin Chewable (Aspirin) 81 Mg Chew 81 Mg PO DAILY 03/15/18 Reported Nexium (Esomeprazole Magnesium) 20 Mg Capcr 20 Mg PO BID 03/15/18 Reported Provider Instructions Activity Restrictions - No exercising or heavy lifting for 24 hours. - Do not drink alcohol the day of the procedure. - Do not drive a car or operate machinery until the day after the procedure. - Do not make any important decisions or sign important papers in 24 hours after the procedure. Following Day: - Return to full activity which may include returning to work/school. Diet Start your diet with liquids and light foods (jello, soup, juice, toast). Then eat your usual diet if not nauseated. Treatment For Common After Affects For mild abdominal pain, bloating, or excessive gas: - Rest - Eat lightly - Lie on right side Follow-Up Information Follow-up with Dr. Marlon Muhammad,Dr. Priti Shah as scheduled Anesthesia Information What You Should Know You have had a procedure that required some medicine to reduce anxiety and discomfort. This treatment is called moderate sedation. After receiving the treatment, you may be sleepy, but you will be able to breathe on your own. The effects of the treatment may last for several hours. Follow these instructions along with Activity/Diet recommendations noted above: * Do NOT do anything where dizziness or clumsiness would be dangerous. * Rest quietly at home today, then you can be up and about tomorrow. * Have a responsible person stay with you the rest of today. * You may have had an I.V. today. If so, you may take the dressing off later today. Recommendations Call your doctor if: * Trouble breathing * Continuous vomiting for more than 24 hours * Temperature above 101 degrees * Severe abdominal pain or bloating * Pain not relieved by pain medicine ordered * There is increased drainage or redness from any incision * A large amount of rectal bleeding greater than 2-3 tablespoons. (If you had a polyp/s removed or have hemorrhoids, a small amount of blood - from the rectum is to be expected.) * You have any unanswered questions or concerns. IN THE EVENT OF A SERIOUS EMERGENCY, GO TO THE NEAREST EMERGENCY ROOM Your discharge instructions were prepared by provider Carlos A Vaughn. Patient Instructions Signature Page Jae Mills Patient (or Guardian) Signature/Date: I have read and understand the instructions given to me by my caregivers. Caregiver/RN/Doctor Signature/Date: The above-named patient and/or guardian has received patient instructions on this date. + Original Patient Signature Page (only) stays with chart. Please make copy for patient.
[2018-03-23 09:43] VITALS: BP 131/80; PULSE 64; O2SAT 97
--- NOTE | 2018-03-23 09:56 | Anesthesiology Progress Note ---
Anesthesia Post Op Note Date & Time March 23, 2018 at 09:56 Vital Signs Pain Intensity: 0 Vital Signs Past 12 Hours Date Time Temp Pulse Resp B/P (MAP) Pulse Ox O2 Delivery O2 Flow Rate FiO2 03/23/18 09:43 64 20 131/80 (97) 97 Room Air 03/23/18 09:30 64 18 118/68 (85) 98 Room Air 03/23/18 09:12 80 16 104/66 (79) 96 Room Air 03/23/18 08:17 36.1 70 18 136/71 (92) 96 Room Air Notes Mental Status: alert / awake / arousable, participated in evaluation Pt Amnestic to Procedure: Yes Nausea / Vomiting: adequately controlled Pain: adequately controlled Airway Patency, RR, SpO2: stable & adequate BP & HR: stable & adequate Hydration State: stable & adequate Anesthetic Complications: no major complications apparent
== END | disposition home or self-care (01) ==
LOC: C.GI 07:57
PROVIDERS: ATTEND Internal Medicine
DX: R13.10 Dysphagia, unspecified (principal); K44.9 Diaphragmatic hernia without obstruction or gangrene; K22.2 Esophageal obstruction; K22.5 Diverticulum of esophagus, acquired; F17.200 Nicotine dependence, unspecified, uncomplicated; E11.9 Type 2 diabetes mellitus without complications; E78.00 Pure hypercholesterolemia, unspecified; I10 Essential (primary) hypertension; Z88.0 Allergy status to penicillin; Z79.4 Long term (current) use of insulin; Z79.82 Long term (current) use of aspirin; Z86.73 Personal history of transient ischemic attack (TIA), and cerebral infarction without residual deficits

== ENCOUNTER → 2018-05-23 | Outpatient (CLI) | payer OTHER ==
[~2018-05-23] MED LIST changes: -LIDOCAINE HCL 2% 2 ML VIAL (20MG/ML) ONE; +OXYC-57 PO; -PROPOFOL IV EMULSION 10 MG/ML 20 ML VIAL ONE; -SODIUM CHLORIDE 0.9% 500ML 500 ML IV ONE
--- NOTE | 2018-05-23 14:47 | DIAGNOSTIC IMAGING REPORT ---
CT OF THE ABDOMEN AND PELVIS WITHOUT CONTRAST CLINICAL HISTORY: Hypertension. Evaluate for pheochromocytoma. COMPARISON STUDY: No previous studies for comparison. TECHNIQUE: Axial images of the abdomen and pelvis were obtained without IV contrast. Images were reviewed in the axial, sagittal, and coronal planes. A dose lowering technique was utilized adhering to the principles of ALARA. FINDINGS: Lung bases are clear. Unenhanced images of liver, spleen, adrenal glands, kidneys and pancreas are normal. There is no biliary or pancreatic ductal dilatation. There is no peripancreatic infiltration. Note is made of a 2 cm gallstone within the gallbladder. There is no evidence for acute cholecystitis. No retroperitoneal mass is present. There is no abdominal or pelvic lymphadenopathy. Caliber of small and large bowel are normal. The appendix is normal. There is extensive atherosclerotic plaque of the abdominal aorta. Abdominal aorta measures up to 2 cm. Apparent displaced intimal calcifications could reflect an old short segment dissection within the abdominal aorta or calcified thrombus. This is chronic. No suspicious osseous lesion is noted. There is mild levoscoliosis of the lumbar spine. IMPRESSION: 1. No adrenal mass. No findings within the abdomen or pelvis to suggest a pheochromocytoma/paraganglioma. 2. No acute process within the abdomen or pelvis on unenhanced exam. 3. Cholelithiasis. Electronically signed by: Derrick Kurtz M.D. 05/23/2018 2:46 PM Dictated Date/Time: 05/23/2018 2:32 PM
[2018-05-23 16:16] LABS: BLOOD UREA NITROGEN 20 mg/dl (7-18); CALCIUM 8.8 mg/dl (8.5-10.1); CARBON DIOXIDE 27 mmol/L (21-32); CREATININE 1.16 mg/dl (0.60-1.40); GLUCOSE 203 mg/dl (70-99); POTASSIUM 4.6 mmol/L (3.5-5.1); SODIUM 136 mmol/L (136-145)
[2018-05-24 06:20] LABS: HEMOGLOBIN A1C 8.4 % (4.5-5.6)
== END | disposition home or self-care (01) ==
LOC: C.CTS 14:07
PROVIDERS: ATTEND Surgery
DX: I10 Essential (primary) hypertension (principal); E11.65 Type 2 diabetes mellitus with hyperglycemia; K80.20 Calculus of gallbladder without cholecystitis without obstruction

== ENCOUNTER 2018-05-29 06:49 | Inpatient (IN) | payer OTHER ==
[2018-05-28 10:46] VITALS: BMI 23.0
[2018-05-29] VITALS (23 sets, daily range): BP systolic 107–164; BP diastolic 43–70; PULSE 59–87; TEMP 36.4–36.5; O2SAT 91–100; BMI 23.0
[~2018-05-29] VITALS: Ht 180.3 cm; Wt 75.0 kg
[~2018-05-29 06:49] MED LIST changes: +LACTATED RINGER'S 1000ML 1,000 ML IV SCH; -OXYC-57 PO
--- NOTE | 2018-05-29 07:25 | History & Physical Bridge Note ---
H&P Re-Evaluation Bridge Note: I have examined the patient, reviewed the History & Physical and in the interval since the performance of the History & Physical I have noted the following changes of clinical significance: No changes notedpt 1 week post cancellation of left car endarterectomy since after induction bp systolic 300 and refractory to antihypertensives, surgery cancelled pt was admitted and watched bp went back to baseline, cardiology saw pt and cleared for surgery, i worked pt up as op for possible pheo, ct scan abd and pelvis neg and urine meta levels normal here for surgery today. no change since last seen pt marked. Unable to locate consent from one week ago, new one written, to be here later
[2018-05-29] MEDS ORDERED: PROPOFOL IV EMULSION 10 MG/ML 20 ML VIAL ONE ×2 (08:59→11:07)
[2018-05-29] MEDS ORDERED: CEFAZOLIN SOD 1 GM VIAL ONE (08:59)
[2018-05-29] MEDS ORDERED: LIDOCAINE HCL 2% 2 ML VIAL (20MG/ML) ONE (08:59)
[2018-05-29] MEDS ORDERED: ROCURONIUM BROMIDE 10 MG/ML 5 ML VIAL ONE (08:59)
[2018-05-29] MEDS ORDERED: DEXAMETHASONE SOD INJ 4 MG/ML VIAL ONE (08:59)
[2018-05-29] MEDS ORDERED: NITROGLYCERIN/D5W 100 MCG/ML BTL ONE (08:59)
[2018-05-29] MEDS ORDERED: ONDANSETRON INJ 2 MG/ML 2 ML VIAL ONE (08:59)
[2018-05-29] MEDS ORDERED: FENTANYL CITRATE INJ 50 MCG/1 ML 2 ML VIAL ONE (08:59)
[2018-05-29] MEDS ORDERED: MIDAZOLAM HCL 1 MG/ML 2ML VIAL ONE (08:59)
[2018-05-29] MEDS ORDERED: PHENYLEPHRINE HCL INJ 10 MG/ML VIAL ONE (08:59)
[2018-05-29] MEDS ORDERED: LIDOCAINE/EPINEPHRINE 1% 20 ML VIAL ONE (09:02)
[2018-05-29] MEDS ORDERED: SODIUM CHLORIDE 0.9% INJ 10 ML VIAL ONE (09:02)
[2018-05-29] MEDS ORDERED: BACITRACIN 50000 UNIT VIAL ONE (09:02)
[2018-05-29] MEDS ORDERED: HEPARIN SOD (PORCINE) 1000 UNIT/ML 10 ML VIAL ONE (09:02)
[2018-05-29] MEDS ORDERED: METOPROLOL TARTRATE 1 MG/ML VIAL ONE (10:45)
[2018-05-29] MEDS ORDERED: NEOSTIGMINE METHYLSULFATE 5 MG/5 ML SYR ONE (11:07)
[2018-05-29] MEDS ORDERED: GLYCOPYRROLATE INJ 0.2 MG/ML VIAL ONE (11:07)
[2018-05-29] MEDS ORDERED: PROTAMINE SULFATE 10 MG/ML 5 ML VIAL IV ONE (11:10)
--- NOTE | 2018-05-29 11:16 | [facility] Post Operative Brief Note ---
Immediate Operative Summary Operative Date May 29, 2018. Pre-Operative Diagnosis Left Carotid Stenosis Post-Operative Diagnosis Symptomatic Left Carotid Stenosis Procedure(s) Performed Left Carotid Endarterectomy with Bovine Patch Surgeon Dr. Cesar Monahan Route Sales Representative Surgeon(s) Sunday Michael PA-C Estimated Blood Loss 100ml Findings See Below hemorrhagic plaque Specimens A.) Left Carotid Plaque Anesthesia Type General
[2018-05-29] MEDS ORDERED: NITROGLYCERIN/D5W 100 MCG/ML 250 ML IV PRN (11:23)
[2018-05-29] MEDS ORDERED: GLUCOSE 40% GEL 15 GM TUBE PO PRN (11:30)
[2018-05-29] MEDS ORDERED: MoRPHine SULFATE 4 MG/ML 1 ML CARP\\VIAL IV PRN (11:30)
[2018-05-29] MEDS ORDERED: GLUCOSE 10 TABS/TUBE PO PRN (11:30)
[2018-05-29] MEDS ORDERED: DEXTROSE 50% 50 ML SYR IV PRN (11:30)
[2018-05-29] MEDS ORDERED: GLUCAGON FOR INJ 1 MG VIAL SQ PRN (11:30)
[2018-05-29] MEDS ORDERED: CARBOHYDRATES FOR HYPOGLYCEMIA PO PRN (11:30)
[2018-05-29] MEDS ORDERED: ATROPINE SULFATE 0.1 MG/ML 5ML SYR IV PRN (12:30)
[2018-05-29] MEDS ORDERED: FENTANYL CITRATE INJ 50 MCG/1 ML 2 ML VIAL IV PRN (12:30)
[2018-05-29] MEDS ORDERED: ONDANSETRON INJ 2 MG/ML 2 ML VIAL IV PRN (12:30)
[2018-05-29] MEDS ORDERED: EpHEDrine SULFATE INJ 50 MG/ML AMP IV PRN (12:30)
--- NOTE | 2018-05-29 12:40 | Anesthesiology Progress Note ---
Anesthesia Post Op Note Date & Time May 29, 2018 at 12:37 Vital Signs Pain Intensity: 0 Vital Signs Past 12 Hours Date Time Temp Pulse Resp B/P (MAP) Pulse Ox O2 Delivery O2 Flow Rate FiO2 05/29/18 12:25 36.6 58 14 131/63 96 Oxymask 2 05/29/18 12:15 62 24 137/62 98 Oxymask 2 05/29/18 12:05 59 12 137/63 100 Oxymask 2 05/29/18 11:55 69 17 135/71 100 Oxymask 10 05/29/18 11:45 36.4 71 13 139/67 100 Oxymask 10 05/29/18 09:06 62 22 100 Mask 9.0 05/29/18 07:25 36.5 68 20 143/56 96 Room Air Notes Mental Status: alert / awake / arousable, participated in evaluation Pt Amnestic to Procedure: Yes Nausea / Vomiting: adequately controlled Pain: adequately controlled Airway Patency, RR, SpO2: stable & adequate BP & HR: stable & adequate Hydration State: stable & adequate Anesthetic Complications: no major complications apparent The patient is doing well in recovery with no complaints. He is conversing appropriately and is moving all his extremities. All vital signs are stable. He will be going to the ICU overnight for close monitoring. A full report was given to Dr. Mills.
[2018-05-29] MEDS: LACTATED RINGER'S 1000ML 1,000 ML IV SCH ×2 (13:44→23:41)
[2018-05-29] MEDS ORDERED: NITROGLYCERIN/D5W 100 MCG/ML IV PRN (14:30)
--- NOTE | 2018-05-29 14:47 | Critical Care Consultation ---
Critical Care Consultation Date of Consultation: May 29, 2018. Attending Physician: Cesar Monahan M.D. Reason for Consultation: post-operative CEA History of Present Illness Patient is a 62 y/o male POD #0 from left carotid endarterectomy from left symptomatic carotid stenosis. During induction 1 week ago patient was found to have a blood pressure in the 300s as noted by arterial waveform. His procedure was canceled and he was worked up for possible pheochromocytoma which was negative. I discussed the case with anesthesia: Dr. Turpin, the patient became mildly hypotensive during induction and responded to IV boluses of phenylephrine. Patient denies chest pain, shortness of breath, headache, fevers, chills, nausea , vomiting, mild sore throat. Tolerated eating a small amount of lunch and was sleeping comfortably. Past Medical/Surgical History History of TIA History of hypertension Diabetes Family History Diabetes mellitus Hypertension Social History Smoking Status: Current Some Day Smoker Drug Use: none Marital Status: Housing Status: lives with family Occupation Status: retired Allergies Coded Allergies: Penicillins (Verified Allergy, Unknown, UNKNOWN-HAD CHILD, 05/29/18) Home Medications Scheduled Aspirin (Aspirin Chewable), 81 MG PO QPM Atorvastatin (Lipitor), 20 MG PO HS Clopidogrel Bisulfate (Plavix), 75 MG PO QPM Enalapril Maleate (Vasotec), 1 TAB PO QPM Esomeprazole Magnesium (Nexium), 20 MG PO QPM Insulin Aspart Protamine & Asp (Novolog Mix 70/30), 28 UNITS SC BID Current Inpatient Medications Current Inpatient Medications Medications (Trade) Dose Ordered Sig/Nicolas Route Start Time Stop Time Status Last Admin Dose Admin Lactated Ringer's 1,000 ml @ 15 mls/hr Q24H IV 05/29/18 06:00 05/30/18 05:59 05/29/18 07:50 15 MLS/HR Nitroglycerin/ Dextrose 250 ml @ 0 mls/hr Q0M PRN IV 05/29/18 11:23 06/28/18 11:22 UNV Ondansetron HCl (Zofran Inj) 4 mg Q6H PRN IV 05/29/18 11:30 06/28/18 11:29 Lactated Ringer's 1,000 ml @ 80 mls/hr [id number] IV 05/29/18 13:00 06/28/18 12:59 05/29/18 13:44 80 MLS/HR Morphine Sulfate (MoRPHine SULFATE INJ) 2 mg Q1H PRN IV 05/29/18 11:30 06/12/18 11:29 Oxycodone/ Acetaminophen (Percocet 5-325mg Tab) 1 tab Q4H PRN PO 05/29/18 11:30 06/12/18 11:29 Morphine Sulfate (MoRPHine SULFATE INJ) 4 mg Q1H PRN IV 05/29/18 11:30 06/12/18 11:29 Insulin Aspart (novoLOG ASPART) SLIDING SCALE If C... ACHS SC 05/29/18 16:00 06/28/18 15:59 Glucose (Glucose 40% Gel) 15-30 GRAMS 15 GRAMS... UD PRN PO 05/29/18 11:30 06/28/18 11:29 Glucose (Glucose Chew Tab) 4-8 Tablets 4 Tabl... UD PRN PO 05/29/18 11:30 06/28/18 11:29 Dextrose (Dextrose 50% 50ML Syringe) 25-50ML 25ML FOR ... UD PRN IV 05/29/18 11:30 06/28/18 11:29 Glucagon (Glucagon Inj) 1 mg UD PRN SQ 05/29/18 11:30 06/28/18 11:29 Carbohydrates (Carbohydrates For Hypoglycemia) 15-30 GRAMS 15 grams if BSG 54-69... UD PRN PO 05/29/18 11:30 06/28/18 11:29 Aspirin (Aspirin Chew) 81 mg QPM PO 05/29/18 21:00 06/28/18 20:59 Clopidogrel Bisulfate (plAVix TAB) 75 mg QPM PO 05/29/18 21:00 06/28/18 20:59 Enalapril Maleate (Vasotec Tab) 20 mg QPM PO 05/29/18 21:00 06/28/18 20:59 Pantoprazole Sodium (Protonix Tab) 40 mg QPM PO 05/29/18 21:00 06/28/18 20:59 Fentanyl Citrate (Fentanyl Inj) 25 mcg Q5M PRN IV 05/29/18 12:30 05/29/18 17:30 Ondansetron HCl (Zofran Inj) 4 mg ONE PRN IV 05/29/18 12:30 05/29/18 17:30 Ephedrine Sulfate (EpHEDrine SULFATE INJ) 5 mg Q5M PRN IV 05/29/18 12:30 05/29/18 17:30 Atropine Sulfate (Atropine Sulfate 0.1mg/ml Inj) 0.5 mg Q1M PRN IV 05/29/18 12:30 05/29/18 17:30 Review of Systems Eyes: No worsening of vision, No eye pain, No redness, No discharge, No diplopia, No problem reported ENT: No hearing loss, No unusual epistaxis, No nasal symptoms, No sore throat, No tinnitus, No dental problems, No trouble swallowing, No problem reported Respiratory: No cough, No sputum, No wheezing, No shortness of breath, No dyspnea on exertion, No dyspnea at rest, No hemoptysis, No problem reported Endocrine: No fatigue, No excessive thirst, No excessive urination, No problem reported Physical Exam Date Time Temp Pulse Resp B/P (MAP) Pulse Ox O2 Delivery O2 Flow Rate FiO2 05/29/18 12:25 36.6 58 14 131/63 96 Oxymask 2 05/29/18 12:15 62 24 137/62 98 Oxymask 2 05/29/18 12:05 59 12 137/63 100 Oxymask 2 05/29/18 11:55 69 17 135/71 100 Oxymask 10 05/29/18 11:45 36.4 71 13 139/67 100 Oxymask 10 05/29/18 09:06 62 22 100 Mask 9.0 05/29/18 07:25 36.5 68 20 143/56 96 Room Air General Appearance: well-appearing Head: normocephalic Eyes: PERRLA Neck: other (Left neck dressing, no shadowing) Respiratory: no respiratory distress, other (No accessory muscle use) Cardiovasular: other (Normal peripheral perfusion, no JVD) Abdomen: non tender Neuro: alert, oriented x 3 Laboratory Results Last 24 Hours Test 05/29/18 07:08 05/29/18 11:52 Bedside Glucose 91 mg/dl 116 mg/dl Assessment & Plan PLAN: Neuro: History of TIA with CVA -On Plavix and aspirin Resp: Tobacco abuse -Wean O2 as tolerated CV: History hypertension -Restart outpatient antihypertensives Fluids/Renal: LR at 80 mL maintenance fluids -BMP in morning GI/Nutrition: Tolerating diet Heme: Patient may ambulate -SCDs for DVT prophylaxis Endocrine: Diabetes mellitus -ICU hyperglycemia protocol Vascular access: Peripheral IVs
--- NOTE | 2018-05-29 14:52 | OPERATIVE REPORT ---
DATE OF OPERATION: 05/29/2018 SURGEON: Cesar Monahan MD OCCUPATIONAL HEALTH NURSE MANAGER: Sunday Michael PA-C. PREOPERATIVE DIAGNOSIS: Symptomatic critical left carotid stenosis. POSTOPERATIVE DIAGNOSES: 1. Symptomatic critical left carotid stenosis. 2. Suspicious hemorrhagic plaque with dissection. PROCEDURE: Left carotid endarterectomy with bovine patch angioplasty. SUMMARY: After induction of general endotracheal anesthesia, the patient's left neck and upper chest was prepped with Betadine scrubbing solution and properly draped. Systemic antibiotics were given. A timeout was had. 1% Xylocaine with epinephrine was used to infiltrate just anterior to the sternocleidomastoid muscle for the incision. We started the incision up higher since the patient also had a Zenker's diverticulum in the same side that needed to be repaired. Therefore, we tried to avoid a lower incision to avoid this scarring for an eventual surgery. An incision was made parallel to sternocleidomastoid deep to the subcutaneous tissue. The patient fortunately was quite thin. We were able to easily dissect out and retract the sternocleidomastoid muscle and immediately also soft tissue with a Seamus retractor. At this point, the dissection was identified by first identifying the superior thyroid artery which was easily identified. It was small, was encircled with 3-0 Clari tie, internal car controlled with vessel loop. Our dissection more distally was on top of the carotid, which was really scarred in, went to the common carotid where we found a plane of dissection that we could get around easily but we did identify that the vagus nerve was strictly adherent to the carotid quite hard, almost was single plane. As we dissected out this towards the internal carotid area, we could see what appeared to be possibility of hold hemorrhage that was coming in the lateral aspect of the carotid bulb whether or not this was the dissection, they broke through or possibly a history of trauma, but the vagus nerve underneath this dissection laterally was so adherent to it that it was very hard to safely dissect the side at this time. We at this point continued the dissection to the internal carotid area. We were able to get around the internal carotid. We palpated to an area where we felt free of disease, but we immobilized the hypoglossal nerve with a vessel loop, divided the digastric since we were feeling what appeared to be some induration way up almost underneath the digastric almost to the styloid. The area there appeared to be smooth but it felt more indurated in 2 isolated areas. I was concerned that we could not get up that high to include these in our dissection. The suspensory ligament was then divided. Systemic heparinization with 7500 units of heparin was given. After an allocated time we placed a clamp at the internal carotid, probably an inch and a half above the bifurcation in an area that appeared to be softer than the 2 isolated areas that we had felt going underneath the digastric muscle before. I clamped the internal carotid, it certainly did not come across. We made a small opening in the common carotid. Using the Levine scissors, we divided the tissue into the internal carotid area. At this time, we saw what appeared to be hemorrhagic plaque quite consistent to the wall. After identifying this, we then dissected out and then we were able to really free the vagus nerve from this but again was strictly adherent. The vagus nerve was intact but we did possibly minimally traumatize it as we were dissecting. The Levine scissor was used to extend the division of the internal carotid about an inch and a half from the takeoff where we found an area that appeared to be the intima quite adherent. We then started using the circular fibers just opposite the external carotid area where we got a plane of dissection lifted up the plaque, which was quite hard, hemorrhagic. We were able to get around the dissection completely around the common carotid. A 5-0 silk suture was used as stay sutures. As we completed this, we completed our dissection up towards the internal carotid area an inch from the takeoff of the bifurcation. The plaque was quite adherent and appeared to undermine circular fibers and onle tissue was the adventitial layer. This area was only sita 0.5cm in diameter. We continued to remove the plaque to the point that we were quite adherent in the internal carotid area. We took the bulldog clamp off the internal carotid and had excellent backbleeding. At this point, we suctioned out the area copiously free of any debris, flushed out the external and common carotid. A few specks of plaque were removed where the area appeared to be quite clean. The area that I imagined that was very thinned out in the internal carotid area and what I did we used 6-0 silk sutures to reapproximate it in a running fashion. We left the suture intact with a hemostat that we would to continue closing it up once we would put the patch on. Bovine patch had been prepared, we brought up on the field and onlayed with 6-0 Prolene suture. Prior to completing the patch, we took the clamp off the internal carotid area. I did not use Bakes dilators as I normally do since we had backbleeding and it was excellent. We flushed the external and common, suctioned out the endarterectomy site and tied down the plaque. A few suture line bleeders were controlled with 6-0 Prolene suture. The area in the internal carotid that we had sutured that before I tied down with a 6-0 suture taking bites of the patch and the adventitial layer and tied and making it secured. Flow was reestablished by taking the external carotid clamp first then opening up the common and then opened up the internal carotid. Some Surgicel was placed in the area. We reversed the heparin with 40 mg of protamine and eventually gave another 10 mg. The area appeared to be quite satisfactory and hemostatic when we were done. I did elect to drain this with a Jj drain, quarter inch bringing out between the 2 heads of sternocleidomastoid laid along the carotid suture line. The wound was closed with 3-0 and 2-0 Dexon jackson for skin edges. At the end of the procedure, the patient was moving all extremities and was just coming out of anesthesia without any problem. Estimated blood loss approximately 150 mL. I attest to the content of the Intraoperative Record and any orders documented therein. Any exceptions are noted below. MTDD
[2018-05-29] MEDS: MoRPHine SULFATE 2 MG/ML CARP IV PRN ×2 (16:32→19:04)
[2018-05-29] MEDS: INSULIN ASPART 100 UNITS/ML 3 ML PEN SC SCH ×2 (16:35→20:59)
[2018-05-29] MEDS: PANTOprazole SOD 40 MG TAB PO SCH (20:30)
[2018-05-29] MEDS: CLOPIDOGREL BISULFATE 75 MG TAB PO SCH (20:30)
[2018-05-29] MEDS: ENALAPRIL MALEATE 10 MG TAB PO SCH (20:31)
[2018-05-29] MEDS: ASPIRIN 81 MG CHEW PO SCH (20:31)
[2018-05-30] VITALS (21 sets, daily range): BP systolic 99–163; BP diastolic 45–83; PULSE 64–100; TEMP 36.4–37.1; O2SAT 87–96; Ht 180.3 cm; Wt 75.0 kg
[2018-05-30] MEDS: MoRPHine SULFATE 2 MG/ML CARP IV PRN (01:04)
[2018-05-30 04:34] LABS: BASO % 0.3 %; BASO ABS # 0.03 K/uL (0-0.2); EOS % 0.8 %; HEMATOCRIT 35.4 % (42-52); HEMOGLOBIN 11.5 g/dL (14.0-18.0); IG# 0.01 K/uL (0.00-0.02); LYMPH % 12.2 %; LYMPH ABS # 1.44 K/uL (1.2-3.4); MEAN CORPUSCULAR HEMOGLOBIN 28.3 pg (25-34); MEAN CORPUSCULAR HGB CONC 32.5 g/dl (32-36); MEAN PLATELET VOLUME 8.8 fL (7.4-10.4); MONO % 9.7 %; MONO ABS # 1.15 K/uL (0.11-0.59); NEUT % 76.9 %; NEUT ABS # 9.12 K/uL (1.4-6.5); PLATELET COUNT 291 K/uL (130-400); RED CELL DISTRIBUTION WIDTH SD 44.6 fL (36.4-46.3); WHITE BLOOD COUNT 11.85 K/uL (4.8-10.8)
[2018-05-30 04:51] LABS: CALCIUM 7.7 mg/dl (8.5-10.1); CREATININE 1.01 mg/dl (0.60-1.40); POTASSIUM 4.6 mmol/L (3.5-5.1)
[2018-05-30] MEDS: ONDANSETRON INJ 2 MG/ML 2 ML VIAL IV PRN ×2 (05:23→20:01)
--- NOTE | 2018-05-30 07:05 | SURGERY PROGRESS NOTE ---
DATE: 05/30/2018 Jae is first postoperative day status post left carotid endarterectomy with bovine patch angioplasty. He is alert, coherent, in no distress. He did have a small emesis this morning. He denies any headaches. His blood pressure has been well controlled off any dilators. His last pressure showed a 147/68, heart rate 90, O2 sats 93 on room air. Laboratory carreno, his hemoglobin is 11.5 this morning. Neurologically, he is intact. His voice is a little bit hoarse, which I would expect from the dissection into the endotracheal tube. The gentleman had a hemorrhagic plaque and likely has significant amount of inflammation around the vagus nerve, strictly adherent to carotid artery and there seemed to be some gelatinous type of material reminiscent of probably an old hemorrhage around the area; whether or not that he had a traumatic injury like a dissection in that area at the time of the stroke is questionable. I did talk with the patient and the . Apparently, the day before he had the stroke, he apparently slipped and quite considerably it hurt his right shoulder in that event and it seemed like 24-hour later he had a stroke. He denies any bruising in the neck area at that time. Having said that, the incision looks good. He has some drainage. He has good left superficial temporal pulse. The drainage then will probably check it out later this morning. Yesterday they are trying to get him up and weigh him. We will reevaluate him later today and probably be discharged. SHIVAM
[2018-05-30] MEDS ORDERED: PHARMACY GLYCEMIC MGMT CONSULT PRN (07:30)
[2018-05-30] MEDS ORDERED: OXYC-57 PO (07:31)
--- NOTE | 2018-05-30 07:33 | Discharge Instructions ---
Discharge Instructions Date of Service May 30, 2018. Admission Reason for Admission: Carotid Stenosis Discharge Discharge Diagnosis / Problem: carotid endarterectomy Discharge Goals Goal(s): Specific goals Activity Recommendations Activity Limitations: as noted below Shower/Bathe: no limitations Driving or Machine Use: no driving for 1 week . Instructions / Follow-Up Instructions / Follow-Up Dr. Monahan in 1 week, call [phone] if you have any questions or need to schedule an appt Current Hospital Diet Patient's current hospital diet: Clear Liquid Diet, Diabetes Type 2 Diet Discharge Diet Recommended Diet: Diabetes Type 2 Diet Procedures Procedures Performed: Left Carotid Endarterectomy with Bovine Patch Pending Studies Studies pending at discharge: no Laboratory Results Hemoglobin A1c Test 05/23/18 14:28 Range/Units Estimated Average Glucose 194 mg/dl Hemoglobin A1c 8.4 H 4.5-5.6 % Medical Emergencies . Who to Call and When: Medical Emergencies: If at any time you feel your situation is an emergency, please call 911 immediately. . Non-Emergent Contact Non-Emergency issues call your: Surgeon Call Non-Emergent contact if: you have a fever, temperature is above 101.5, your pain is not controlled, wound has increased drainage, wound has increased redness, wound has increased pain, you have any medication questions . "Provider Documentation" section prepared by Sunday Michael. .
[2018-05-30] MEDS ORDERED: INSULIN HUMAN NPH SC ONE ×2 (07:45→20:00)
[2018-05-30] MEDS: INSULIN ASPART 100 UNITS/ML 3 ML PEN SC SCH ×5 (08:02→23:52)
--- NOTE | 2018-05-30 09:50 | Pharmacy Progress Note ---
Glycemic Control Intl Consult Date of Service May 30, 2018. Scope Glycemic Pharmacist consulted by Dr Mills on 05/30/18 for glycemic control and to write orders per [facility] inpatient glycemic control protocol Objective Weight (Kilograms): 75.000 Accuchecks BSG (last 24hrs): Test 05/29/18 11:52 05/29/18 16:28 05/29/18 20:42 05/30/18 04:20 Bedside Glucose 116 mg/dl (70-99) 165 mg/dl (70-99) 212 mg/dl (70-99) Random Glucose 221 mg/dl (70-99) Test 05/30/18 05:41 Bedside Glucose 232 mg/dl (70-99) Laboratory Data (last 24hrs) Test 05/30/18 04:20 Anion Gap 5.0 mmol/L BUN/Creatinine Ratio 21.2 Blood Urea Nitrogen 21 mg/dl Creatinine 1.01 mg/dl Potassium Level 4.6 mmol/L Sodium Level 133 mmol/L White Blood Count 11.85 K/uL Red Blood Count 4.07 M/uL Hemoglobin 11.5 g/dL Hematocrit 35.4 % Mean Corpuscular Volume 87.0 fL Mean Corpuscular Hemoglobin 28.3 pg Mean Corpuscular Hemoglobin Concent 32.5 g/dl Platelet Count 291 K/uL Mean Platelet Volume 8.8 fL Neutrophils (%) (Auto) 76.9 % Lymphocytes (%) (Auto) 12.2 % Monocytes (%) (Auto) 9.7 % Eosinophils (%) (Auto) 0.8 % Basophils (%) (Auto) 0.3 % Neutrophils # (Auto) 9.12 K/uL Lymphocytes # (Auto) 1.44 K/uL Monocytes # (Auto) 1.15 K/uL Eosinophils # (Auto) 0.10 K/uL Basophils # (Auto) 0.03 K/uL Recent Pertinent Medications Outpatient Anti-diabetic Regimen: * Novolog 70/30, 28 units BID * A1c = 8.4 % on 05/23/18 The patient is currently receiving: * Basal insulin: None * Correctional Insulin: Novolog Correction per scale ACHS Goal Range: Low 90 mg/dL - High 140 mg/dL Correction Factor: 40 mg/dL/unit * Prandial insulin: None Risk Factors for Insulin Resistance: * Steroids: Dexamethasone 4 mg IV x1 05/29 * Recent Surgery: POD 1 s/p carotid endarterectomy * Diet: T2DM Assessment & Plan ASSESSMENT: * 62 yo M admitted for carotid endarterectomy. Hyperglycemia 2nd no basal insulin on 05/29, physiologic stress 2nd surgery, steroids administered. No CHO coverage ordered - but patient not with significant po intake at this time. * Outpatient regimen is premixed basal/prandial insulin of Novolog 70/30 mix insulin. * Pre-mixed insulin is difficult to titrate since it is already in a fixed distribution of basal:prandial insulin. Continuing pre-mixed insulin for admission typically lead to hypoglycemia d/t changing PO status but rapid acting insulin is unable to be held. * Possible discharge later today. Will use NPH as basal insulin to help with transition back to pre-mixed Novolog 70/30 as outpatient. Will give slightly higher dose than suggested via calculator (best est daily dose 56 units as outpatient) as patient is likely basal deficient and also received long-acting steroid yesterday. Hesitant to be more aggressive at this time as patient has minimal po intake (small emesis noted this AM). * Will add CHO ratio and slightly tighten correction factor * If patient stays overnight, will add overnight checks as patient is recently post-op * Afternoon update: patient now NPO. Will decrease dose of NPH as compared to prior plan. PLAN FOR INPATIENT GLYCEMIC CONTROL: * Basal insulin with NPH 20 units x1 (already administered this AM when diet was ordered) then BIDM based on BSG at reduced dose for NPO status: * Hold for BSG < 120 mg/dL * 10 units BSG 120-180 mg/dL * 15 units BSG > 180 mg/dL * Correctional Insulin with NOVOLOG per scale ACHS or Q6hrs while NPO - 2 additional checks overnight * Goal Range: Low 120 mg/dL - High 150 mg/dL * Correction Factor: 25 mg/dL/unit * Nutritional / Prandial insulin per carb ratio of 1 unit per 9 grams CHO consumed * Please note that the plan above was derived based on current level of insulin resistance and hospital stress. These recommendations are appropriate for inpatient admission only. Plan of care upon discharge will need to be reassessed to avoid potential outpatient hypo/hyperglycemia. Thank you.
[2018-05-30] MEDS: OXYCODONE/ACETAMINOPHEN 5-325 TAB PO PRN ×2 (10:36→17:45)
--- NOTE | 2018-05-30 12:03 | DIAGNOSTIC IMAGING REPORT ---
VIDEO SWALLOW HISTORY: h/o dysphagia and aspiration; please schedule per order TECHNIQUE: Video fluoroscopic evaluation of swallowing was performed in the AP and lateral projections by the speech pathology staff. The patient is fed thin liquid barium and barium pudding. FLUOROSCOPY TIME: 1.7 minutes. A cine loop submitted.. COMPARISON STUDY: Video swallow 03/13/2018. FINDINGS: There are skin jackson along the left side of the neck. Multiple episodes of aspiration are seen throughout the examination. This is secondary to the overall poor pharyngeal restriction and incomplete epiglottic deflection. IMPRESSION: 1. Multiple episodes of aspiration. 2. Please see the speech pathologist report for detailed findings and recommendations. Electronically signed by: Carlin Dumont M.D. 05/30/2018 12:01 PM Dictated Date/Time: 05/30/2018 11:59 AM
[2018-05-30] MEDS: LACTATED RINGER'S 1000ML 1,000 ML IV SCH ×2 (12:06→21:39)
[2018-05-30] MEDS ORDERED: INSULIN HUMAN NPH SC SCH (16:30)
[2018-05-30] MEDS: PANTOprazole SOD 40 MG TAB PO SCH (19:53)
[2018-05-30] MEDS: ASPIRIN 81 MG CHEW PO SCH (19:54)
[2018-05-30] MEDS: ENALAPRIL MALEATE 10 MG TAB PO SCH (19:54)
[2018-05-30] MEDS: CLOPIDOGREL BISULFATE 75 MG TAB PO SCH (19:54)
[2018-05-31 00:08] VITALS: BP 148/58; PULSE 90; TEMP 36.8; O2SAT 90
[2018-05-31 04:07] VITALS: BP_SYST 146; BP_SYST 165; BP_DIAS 61; BP_DIAS 76; PULSE 94; TEMP 37; O2SAT 91
[2018-05-31] MEDS: INSULIN ASPART 100 UNITS/ML 3 ML PEN SC SCH ×2 (04:17→07:42)
[2018-05-31] MEDS: LACTATED RINGER'S 1000ML 1,000 ML IV SCH (04:36)
[2018-05-31 08:00] VITALS: BP 146/76; PULSE 81; TEMP 37; O2SAT 92
[2018-05-31] MEDS ORDERED: INSULIN HUMAN NPH SC SCH (08:00)
--- NOTE | 2018-05-31 08:09 | SURGERY PROGRESS NOTE ---
DATE: 05/31/2018 Francisco is second postoperative day status post left carotid endarterectomy with bovine patch angioplasty. He is alert, coherent, in no distress. He feels better than yesterday. He is not having any coughing spells. He was a little bit nauseated last evening but nothing any more today. He is anxious to go home and he would like to try something to eat. The neck incision is fine, expected ecchymosis, no drainage. The dressing was removed. He has a good left superficial temporal pulse. Neurologically, he is intact. Voice is improving. We had a discussion with the speech therapist yesterday and Dr. Mills. We felt that we should try to keep him n.p.o. for a couple days to see if we can avoid what it might be evidence of aspiration. Apparently, the gentleman had some edema in that area of oropharynx in February of this year and a question was raised whether or not he may have neurological defect along with a Zenker's that is planned to have resected in the future, but overall he is doing well and we will reevaluate him later today. His last vitals showed a temperature of 37, pulse 94, respirations 16, blood pressure 146/78, O2 sats 91 on room air. Laboratory, the chemistry showed a glucose of 136. He is still in ICU but he has marked as PCU status. SHIVAM
--- NOTE | 2018-05-31 09:11 | Pharmacy Progress Note ---
Glycemic Control Progress Note Date of Service May 31, 2018. Scope Glycemic Pharmacist consulted for glycemic control to write orders per [facility] inpatient glycemic control protocol. Objective Accuchecks BSG (last 24hrs): Test 05/30/18 11:56 05/30/18 16:17 05/30/18 19:58 05/30/18 23:51 Bedside Glucose 205 mg/dl (70-99) 139 mg/dl (70-99) 130 mg/dl (70-99) 110 mg/dl (70-99) Test 05/31/18 04:07 05/31/18 07:36 Bedside Glucose 115 mg/dl (70-99) 136 mg/dl (70-99) Recent Pertinent Medications Outpatient Anti-diabetic Regimen: * Novolog 70/30, 28 units BID * A1c = 8.4 % on 05/23/18 The patient is currently receiving: * Basal insulin: NPH 20 units 8/ AM, 7 units 8/1 PM * Correctional Insulin: Novolog Correction per scale ACHS Goal Range: Low 120 mg/dL - High 150 mg/dL Correction Factor: 25 mg/dL/unit * Prandial insulin: 1 unit Novolog for every 9 g CHO consumed Risk Factors for Insulin Resistance: * Steroids: Dexamethasone 4 mg IV x1 05/29 * Recent Surgery: POD 2 s/p carotid endarterectomy * Diet: NPO Assessment & Plan ASSESSMENT: 05/30/18 * 62 yo M admitted for carotid endarterectomy. Hyperglycemia 2nd no basal insulin on 05/29, physiologic stress 2nd surgery, steroids administered. No CHO coverage ordered - but patient not with significant po intake at this time. * Outpatient regimen is premixed basal/prandial insulin of Novolog 70/30 mix insulin. * Pre-mixed insulin is difficult to titrate since it is already in a fixed distribution of basal:prandial insulin. Continuing pre-mixed insulin for admission typically lead to hypoglycemia d/t changing PO status but rapid acting insulin is unable to be held. * Possible discharge later today. Will use NPH as basal insulin to help with transition back to pre-mixed Novolog 70/30 as outpatient. Will give slightly higher dose than suggested via calculator (best est daily dose 56 units as outpatient) as patient is likely basal deficient and also received long-acting steroid yesterday. Hesitant to be more aggressive at this time as patient has minimal po intake (small emesis noted this AM). * Will add CHO ratio and slightly tighten correction factor * If patient stays overnight, will add overnight checks as patient is recently post-op * Afternoon update: patient now NPO. Will decrease dose of NPH as compared to prior plan 05/31/18 * Patient remains NPO 2nd significant aspiration risk, but is hungry * BSG's ranged 110-139 mg/dL since 1600 yesterday after re-initiating basal insulin (NPH) * Total of 27 units of NPH administered yesterday. Will continue NPH but will reduce dose as effects of dexamethasone are likely dissipating and patient is expected to remain NPO (per ICU rounds) * Will decrease goal range so patient will receive correctional insulin for any BSG above 140 mg/dL in case the decrease in basal insulin causes the BSG's to rise * Will loosen correction factor and carb ratio to weight based estimate to prevent hypoglycemia as effects of dexamethasone dissipate * OK to decrease checks from q4 to q6 PLAN FOR INPATIENT GLYCEMIC CONTROL: * Decrease basal insulin with NPH Q12H based on BSG at reduced dose for NPO status: * 5 units for BSG < 120 mg/dL * 10 units BSG 120-180 mg/dL * 15 units BSG > 180 mg/dL * Correctional Insulin with NOVOLOG per scale ACHS (or Q6H while NPO) * Decrease Goal Range: Low 110 mg/dL - High 140 mg/dL * Loosen Correction Factor: 30 mg/dL/unit * Loosen Nutritional / Prandial insulin per carb ratio of 1 unit per 10 grams CHO consumed * Please note that the plan above was derived based on current level of insulin resistance and hospital stress. These recommendations are appropriate for inpatient admission only. Plan of care upon discharge will need to be reassessed to avoid potential outpatient hypo/hyperglycemia. Thank you.
[2018-05-31 12:00] VITALS: BP 147/56; PULSE 103; TEMP 37; O2SAT 94
[2018-05-31] MEDS ORDERED: INSULIN ASPART 100 UNITS/ML 3 ML PEN SC SCH ×2 (12:00)
[2018-05-31 14:59] VITALS: BP 147/56; PULSE 103; TEMP 37; O2SAT 94
--- NOTE | 2018-06-05 17:46 | DISCHARGE SUMMARY ---
PRIMARY DISCHARGE DIAGNOSES: 1. Symptomatic critical left carotid stenosis. 2. Dysphagia. 3. Zenker's diverticulum. SECONDARY DISCHARGE DIAGNOSES: 1. Type 2 diabetes. 2. Hypertension. 3. GERD. 4. Peripheral neuropathy. 5. History of cerebrovascular accident. PROCEDURES PERFORMED: Left carotid endarterectomy with bovine patch angioplasty. CONSULTATIONS: [facility] shipwright supervisor assisted in postoperative care. HOSPITAL COURSE: The patient is a 62-year-old male with critical left carotid artery stenosis, taken to the operating room for left carotid endarterectomy. The procedure was well tolerated. The procedure was recently postponed due to hypertension; however, his blood pressure remained stable now intraoperatively and postoperatively. He had some dysphagia on postoperative day 1. He has had difficulties at home as well. He has a history of Zenker's diverticulum, which has been evaluated by Dr. Muhammad, and plans for resection. He did have a video swallow which showed multiple episodes of aspiration. He was seen by speech therapy. POD 2 he continued to have some dysphagia, but he felt that overall he was back to near baseline. He was otherwise doing well and was stable for discharge with outpatient speech therapy. His incision was clean and dry. DISCHARGE INSTRUCTIONS: Discharge home. Follow up with Dr. Monahan in 1 week. No driving for 1 week. Arrangements will be made for outpatient speech therapy. He will also follow up with Dr. Muhammad in the next several weeks. DISCHARGE MEDICATIONS: Percocet 1-2 tablets every 4 hours as needed. He can discontinue his home Plavix 75 mg daily. Resume all other home medications; aspirin 81 mg daily, Lipitor 20 mg daily, Vasotec 20 mg daily, Nexium 20 mg daily, NovoLog 70/30 of 28 units subQ b.i.d. MTDD
== END 2018-05-31 17:07 | disposition home or self-care (01) | DRG 39 ==
LOC: C.ACU 06:49 → C.MSICU 11:28 → ENRESERV 12:04
PROVIDERS: ADMIT Surgery; ATTEND Surgery
PROC: 03CJ0ZZ Extirpation of Matter from Left Common Carotid Artery, Open Approach (ICD-10-PCS; principal; 2018-05-29 08:45)
PROC: 03UJ0KZ Supplement Left Common Carotid Artery with Nonautologous Tissue Substitute, Open Approach (ICD-10-PCS; principal; 2018-05-29 08:45)
DX: I65.22 Occlusion and stenosis of left carotid artery (principal); K22.5 Diverticulum of esophagus, acquired; R13.10 Dysphagia, unspecified; E11.40 Type 2 diabetes mellitus with diabetic neuropathy, unspecified; K21.9 Gastro-esophageal reflux disease without esophagitis; F17.200 Nicotine dependence, unspecified, uncomplicated; Z79.82 Long term (current) use of aspirin; Z79.899 Other long term (current) drug therapy; Z79.4 Long term (current) use of insulin; Z86.73 Personal history of transient ischemic attack (TIA), and cerebral infarction without residual deficits

== ENCOUNTER 2019-02-15 12:11 | Inpatient (IN) ==
--- NOTE | 2019-02-15 12:41 | XRay Report ---
XR chest 1V portable CLINICAL HISTORY: cva mental status change. COMPARISON STUDY: 08/22/2017 FINDINGS: The bones soft tissues and hemidiaphragms are normal. The cardiomediastinal silhouette is n ormal. The lungs are clear. The pulmonary vasculature is normal. Subtle progressive bibasilar interst itial change. IMPRESSION: 1. Slight prominence of the basilar interstitial markings. 2. Study is otherwise negative. The above report was generated using voice recognition software. It may contain grammatical, syntax or spelling errors. Electronically signed by: Eliseo Molina M.D. 02/15/2019 12:40 PM
[2019-02-15 12:45] LABS: Basophils # (auto) 0.04 K/uL (0-0.2); Basophils % (auto) 0.2 %; Eosinophils # (auto) 0.12 K/uL (0-0.5); Eosinophils % (auto) 0.6 %; Hemoglobin 14.6 g/dL (14.0-18.0); Immature Granulocytes # (auto) 0.07 K/uL (0.00-0.02); Immature Granulocytes % (auto) 0.3 %; Lymphocytes % (auto) 5.1 %; Mean Corpuscular Hgb Conc 31.7 g/dL (32-36); Mean Platelet Volume 9.5 fL (7.4-10.4); Monocytes # (auto) 1.11 K/uL (0.11-0.59); Monocytes % (auto) 5.1 %; Neutrophils # (auto) 19.23 K/uL (1.4-6.5); Neutrophils % (auto) 88.7 %; Platelet Count 348 K/uL (130-400); RDW Coefficient of Variation 14.1 % (11.5-14.5); RDW Standard Deviation 46.5 fL (36.4-46.3); Red Blood Count 5.17 M/uL (4.7-6.1); White Blood Count 21.67 K/uL (4.8-10.8)
[2019-02-15 12:46] LABS: iSTAT Creatinine 1.1 mg/dl (0.6-1.3); iSTAT Hemoglobin 14.6 g/dl (14.0-18.0); iSTAT Ionized Calcium 1.17 mmol/l (1.12-1.32); iSTAT Potassium 5.2 mEq/L (3.3-5.0)
[2019-02-15] MEDS ORDERED: SODIUM CHLORIDE 0.9% 1000ML 1,000 ML IV ONE (12:48)
[2019-02-15] MEDS ORDERED: OPTIRAY 320 125ml IV PRN (12:54)
[2019-02-15 12:59] LABS: Alanine Aminotransferase 20 U/L (12-78); Albumin Level 3.6 gm/dl (3.4-5.0); Aspartate Aminotransferase 18 U/L (15-37); Blood Urea Nitrogen 15 mg/dl (7-18); Calcium 9.4 mg/dl (8.5-10.1); Carbon Dioxide 24 mmol/L (21-32); Chloride 107 mmol/L (98-107); Est GFR (African American) 71.7; Est GFR (Non-African American) 61.8; Glucose 173 mg/dl (70-99); Magnesium 1.8 mg/dl (1.8-2.4); Sodium 138 mmol/L (136-145)
[2019-02-15 13:04] LABS: Alkaline Phosphatase 97 U/L (45-117); Bilirubin,Total 0.4 mg/dl (0.2-1); Globulin 3.8 gm/dl (2.5-4.0); Total Protein 7.4 gm/dl (6.4-8.2); Troponin I < 0.015 ng/ml (0-0.045)
--- NOTE | 2019-02-15 13:04 | CT Scan Report ---
CT angio head wo/w CT DOSE: 1132.48 mGy.cm CLINICAL HISTORY: Stroke TECHNIQUE: Unenhanced images were obtained through the brain. CT angiography was then performed in a dynamic helical fashion during intravenous administration 120 cc of Optiray 320. Mid imaging was acqu ired. A dose lowering technique was utilized adhering to the principles of ALARA. COMPARISON STUDY: Noncontrast head CT dated 08/22/2017 FINDINGS: On the noncontrast study, no intra or extra-axial mass lesions are visualized. There are old multifoc al infarcts with involvement of both frontal lobes as well as the left parietal lobe. There is no acu te hemorrhage. There is no midline shift. There is no hydrocephalus. CT angiographic images reveal no evidence for aneurysm. The dural venous sinuses appear patent. There are mild to moderate atheromatous changes present within the distal internal carotid arteries. There is no evidence for major intracranial branch occlusion. There is a hypoplastic right A1 segment IMPRESSION: 1. Old multifocal parenchymal infarcts 2. No evidence of acute hemorrhage 3. No evidence of aneurysm 4. Mild to moderate atheromatous changes within the distal internal carotid arteries. 5. No evidence for major intracranial branch occlusion Electronically signed by: Denilson Espitia M.D. 02/15/2019 1:02 PM
[2019-02-15 13:06] LABS: Partial Thromboplastin Time 28.2 Seconds (21.0-31.0); Prothrombin Time 10.5 Seconds (9.0-12.0)
--- NOTE | 2019-02-15 13:20 | CT Scan Report ---
CT ANGIOGRAM OF THE NECK CLINICAL HISTORY: Strokelike symptoms. COMPARISON STUDY: CT angiogram of the neck dated 08/23/2017. TECHNIQUE: Following the IV administration of 120 of Optiray 320, CT angiogram of the neck was perfor med from the aortic arch to the skull base. Images are reviewed in the axial, sagittal, and coronal p lanes. 3-D MIPS images are created and assessed. IV contrast was administered without complication. A ll measurements were calculated based on NASCET criteria. A dose lowering technique was utilized adh ering to the principles of ALARA. FINDINGS: Thoracic aorta: There is atherosclerotic calcification of the thoracic aorta. Visualized portions of the thoracic aorta are normal in caliber. The aortic arch demonstrates standard 3-vessel anatomy. Right carotid arterial system: The right common carotid artery is widely patent. There is less than 5 0% stenosis at the origin of the right internal carotid artery secondary to calcified plaque. There i s diffuse atherosclerotic irregularity throughout the right internal carotid artery with foci of appr oximately 50% stenosis within the mid internal carotid artery (axial image #[id number]). There is tortuosity of the distal right internal carotid artery. There is high-grade stenosis with near complete occlusi on of the proximal right external carotid artery located approximately 2 cm from the bifurcation. The right external carotid artery is otherwise patent. Left carotid arterial system: The left common carotid artery is widely patent, as is the left interna l carotid artery. Endarterectomy change is noted. There is near complete occlusion at the origin of t he left external carotid artery. The remainder of the external carotid artery is patent. Vertebral arteries: The vertebral arteries are widely patent bilaterally noting a right-sided dominan ce. Subclavian arteries: Widely patent bilaterally. Intracranial vasculature: Atherosclerotic irregularity and calcification is noted in the cavernous ca rotid arteries bilaterally. Intracranial vessels at the skull base appear patent. Jugular veins: Widely patent bilaterally. Brain parenchyma: The visualized brain parenchyma the skull base is within normal limits. Lung apices: Emphysematous change is noted. Partially visualized upper lobe lung parenchyma otherwise clear. Soft tissues: The visualized pharyngeal soft tissues are normal in appearance noting angiographic pha se technique. The oropharyngeal airway appears widely patent. The salivary and thyroid glands are nor mal in appearance. No cervical lymphadenopathy is seen. Skeletal structures: The skeletal structures are osteopenic. The visualized calvarium at the skull ba se appears intact. The imaged cervical spine appears maintained noting multilevel spondylosis. There is a small right mastoid effusion. The left mastoid vessels are clear, as are the imaged paranasal si nuses at the skull base. IMPRESSION: 1. There is less than 50% stenosis at the origin of the right internal carotid artery. There are also foci of less than 50% stenosis seen within the mid right internal carotid artery. 2. The left internal carotid artery is widely patent, with evidence of interval endarterectomy when c ompared to 08/23/2017. 3. There are foci of high-grade stenosis with near complete occlusion seen involving both external ca rotid arteries. 4. The vertebral arteries are widely patent. 5. Emphysema. 6. Additional findings as above. Electronically signed by: Justin Scherer M.D. 02/15/2019 1:19 PM
[2019-02-15] MEDS ORDERED: PHARMACIST DISCHARGE MED REC CONSULT PRN (16:38)
[2019-02-15] MEDS ORDERED: CLOPIDOGREL BISULFATE 75 MG TAB PO ONE (16:42)
[2019-02-15] MEDS ORDERED: DEXTROSE 50% 50 ML SYRINGE IV PRN (17:15)
[2019-02-15] MEDS ORDERED: GLUCAGON FOR INJ 1 MG VIAL IM PRN (17:15)
[2019-02-15] MEDS ORDERED: CARBOHYDRATES FOR HYPOGLYCEMIA PO PRN (17:15)
[2019-02-15] MEDS ORDERED: GLUCOSE 40% GEL 15 GM TUBE PO PRN (17:15)
[2019-02-15] MEDS ORDERED: GLUCOSE 10 TABS/TUBE PO PRN (17:15)
[2019-02-15] MEDS: INSULIN ASPART 100 UNITS/ML 3 ML PEN SC SCH ×2 (18:05→20:59)
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
--- NOTE | 2019-02-15 19:46 | History & Physical Report ---
Date of Service February 15, 2019 Assessment & Plan (1) CVA (cerebral vascular accident): Appears to either be secondary to his right-sided 50% carotid stenosis versus small vessel disease in the brain related to his diabetes and smoking. -Discussed with neurology given the waxing and waning symptoms, but we are both in agreement that anticoagulation would be more risk than benefit, will have him on aspirin plus Plavix for the short term future. -Escalate atorvastatin to 80 mg -Desperate need for smoke cessation (see below) -Desperate need for better diabetes control (see below) -Stop ibuprofen (discussed risk of vascular events when NSAIDs are in use) -PT/OT/speech eval and treat -Neurology evaluation -Likely to need rehab. (2) Carotid artery stenosis: Is a 50% stenosis on the right which does make it tight enough to possibly be culprit for his stroke. He and the family note that after his last endarterectomy, he was deemed probably not a surgical candidate for the opposite side. We will ask surgery to evaluate given the fact that it is potentially a "smoking gun" but certainly with it being a 50% stenosis, if he is extremely high risk for surgical complications, given that between his diabetes/lipids/tobacco abuse there is a lot of room for improvement with medical management, he could potentially be watchful waiting from a surgical standpoint. (3) HTN (hypertension): Follow, continue current meds for now. (4) Type 2 diabetes mellitus: He notes his current insulin regimen is because of affordability. We discussed the physiologic regimen versus a nonphysiologic regimen. For now we will give trial to basal bolus insulin as well as ask case management to look into possible coverage for any basal bolus regimen we could set him up with. He seems to be suffering from highs and lows currently. A more physiologic regimen would likely help this. (5) Dyslipidemia: Escalate atorvastatin 80 mg as above. There is mostly for plaque stabilization, however his non-HDL cholesterol is about 120, so while [place] is not in any use as much as the ACC guidelines, by both criteria he would likel y benefit from an escalation of atorvastatin. (6) DVT prophylaxis: (7) Discharge planning issues: Lovenox rehab. (8) Dysphasia: His chronic dysphasia it is not clear if it was from his prior stroke or prior carotid endarterectomy, but he has ongoing speech therapy. Right now with the facial droop, will modify diet to pured with nectar thick liquids until speech sees him. (9) Tobacco abuse: I had a lisandro discussion with the patient on the absolute critical need to stop smoking. Given his prior vascular disease history and ongoing cerebrovascular events, I discussed with him that if we do everything we can medically to reduce his secondary risk for further strokes, but he continues to smoke, it would effectively be like trying to "dry off while still in the swimming pool" his expressed desire for him to quit smoke too, he notes that it is difficult but he will try. (10) Vitamin D deficiency: (11) Leukocytosis: He shows no focal signs or symptoms of infection. With his dysphasia it does sound like he is a bit of a chronic aspirator, and he did have a little bit of a bad event this morning. She has no true signs or symptoms of pneumonia, we will continue to follow closely and have a low threshold to initiate antibiotics for aspiration coverage, but given that he is not feeling short of breath and has clear lungs we will continue to follow. Follow-up white count in the morning, follow inflammatory markers. History of Present Illness Chief Complaint: L arm weakness Primary Care Provider: Priti Shah DO Patient is a very pleasant 63-year-old male with left-sided weakness. He notes it started about 2 days ago he woke up with it and then it started to get better again, so he ignored it. Today woke up with it and it was not going away. He had left arm weakness and a facial droop and left leg weakness and off balance. Since his symptoms were not going away his wanted him to come in, he initially resisted but then later decided to come in. Unfortunately his clinical evaluation is consistent with having had another stroke. He has had strokes in the past. His sugars have been running high, but he has lows after prolonged fasting such as when he is asleep. He is only on NPH insulin, as he notes that he is not able to afford other insulins. He also continues to smoke. Allergies Allergy/AdvReac Type Severity Reaction Status Date / Time Penicillins Allergy Unknown UNKNOWN-HAD Verified 02/15/19 12:59 CHILD Home Medications Home Medications Medication Instructions Recorded Confirmed Type aspirin [Aspir-81] 81 mg PO QPM #0 tab 03/15/18 02/15/19 History atorvastatin 20 mg PO HS #0 tab 03/15/18 02/15/19 History enalapril maleate 20 mg PO QPM #0 tab 03/15/18 02/15/19 History esomeprazole magnesium [Nexium] 20 mg PO QPM #0 cap 03/15/18 02/15/19 History insulin asp prt-insulin aspart 0 unit SC BID #0 btl 03/15/18 02/15/19 History [Novolog Mix 70-30FlexPen U-100] ibuprofen 800 mg PO Q6H PRN 02/15/19 02/15/19 History Past Med/Surg History Medical History Cancer HODGKIN LYMPHOMA - 30 YEARS AGO; IN REMISSION Carotid artery stenosis S/P LEFT CEA APRIL 2018 Cricopharyngeal hypertrophy Diabetes mellitus, type 2 INSULIN DEPENDENT GERD (gastroesophageal reflux disease) Hiatal hernia History of stroke x 2: 2014, 2016; residual RUE weakness and 'memory issues' Hyperlipidemia Hypertension Schatzki's ring Vocal fold paralysis, left s/p L CEA; pt saw 06/18/18 for this dx Zenkers diverticulum Surgical History History of arthroscopy RT SHOULDER SCOPE History of carotid endarterectomy L CEA with patch 05/29/2018 History of esophagogastroduodenoscopy (EGD) WITH DILATION History of herniorrhaphy ING HERNIA REPAIR X3 Left leg injury REPAIR AFTER ACCIDENT Family History Other Alzheimer disease Aneurysm Social History Preferred Language: [place] Communication Ability: Effective Dent Remover Required: No Beliefs That Will Affect Care: None Current Living Situation: Spouse Other Information That Helps Us Care for You: No Feels Safe at Home: Yes Safety Concerns: Feels Safe At This Time Smoking Status: Light tobacco smoker Tobacco Type: cigarettes Cigarettes Per Day: OCC. CIGARETTE, PREVIOUSLY QUIT IN APRIL 2015 Do You Dip or Chew Tobacco: Yes Smoking End Date: 02/14/19 Second Hand Exposure: No Tobacco Cessation Education Requested by Patient: No Hx Alcohol Use: Yes Alcohol type: beer Hx Substance Use: No Review of Systems Review of Systems: All systems reviewed & are unremarkable except as noted in HPI & below Physical Exam Physical Exam: In general he is awake alert oriented x3 pleasant no distress. HEENT normal cephalic atraumatic mucous membranes are moist. Cardio is regular without rubs murmurs or gallops. Lungs are clear to auscultation bilaterally no rales rhonchi or wheeze. Skin shows no rashes no pallor or icterus. Abdomen soft nondistended nontender no masses or organomegaly Extremities show no sinus clubbing or edema Neuro shows cranial nerves II through XII grossly intact with the exception of a bit of a left facial droop, of note it does seem to come and go a little bit even during interview and exam. Motor is just slightly weak left arm and left leg gross motor being about 4+ out of 5 compared to 5 out of 5 on the right. Sensory subjectively is diminished on the left. Mental status shows good recent and remote recall normal mood and affect fair judgment and insight Muscular skeletal exam shows no gross lesions Results & Data Vital Signs (Past 12 Hours) Vital Signs Temp Pulse Pulse Resp BP BP Pulse Ox 02/15/19 19:31 36.4 C L 75 17 126/52 L 91 02/15/19 16:38 37.3 C 18 151/63 H 93 02/15/19 15:30 68 24 124/62 02/15/19 15:00 74 20 127/64 02/15/19 14:30 69 22 130/64 02/15/19 14:00 73 23 136/62 02/15/19 13:30 64 23 132/59 L 96 02/15/19 13:00 66 20 122/60 92 02/15/19 12:53 69 22 127/62 93 02/15/19 12:31 71 21 105/80 93 02/15/19 12:30 77 19 94 02/15/19 12:23 36.8 C 88 18 145/69 H 93 02/15/19 12:22 82 17 93 02/15/19 12:16 81 20 145/69 H 94 Laboratory Results Labs and CT scans noted. (1) CVA (cerebral vascular accident) CVA mechanism: unspecified Qualified Code(s): I63.9 - Cerebral infarction, unspecified
[2019-02-15] MEDS: ASPIRIN 81 MG ECTAB PO SCH (20:57)
[2019-02-15] MEDS: PANTOprazole 40 MG TAB PO SCH (20:57)
[2019-02-15] MEDS: ATORVASTATIN 40 MG TAB PO SCH (20:57)
[2019-02-15] MEDS: ENALAPRIL MALEATE 10 MG TAB PO SCH (20:58)
[2019-02-15] MEDS ORDERED: ATORVASTATIN 20 MG TAB PO SCH (21:00)
[2019-02-16 07:11] LABS: Basophils # (auto) 0.04 K/uL (0-0.2); Basophils % (auto) 0.3 %; Eosinophils # (auto) 0.77 K/uL (0-0.5); Eosinophils % (auto) 5.3 %; Hematocrit (blood only) 40.2 % (42-52); Hemoglobin 12.8 g/dL (14.0-18.0); Immature Granulocytes # (auto) 0.03 K/uL (0.00-0.02); Immature Granulocytes % (auto) 0.2 %; Lymphocytes # (auto) 2.07 K/uL (1.2-3.4); Lymphocytes % (auto) 14.3 %; Mean Corpuscular Hgb Conc 31.8 g/dL (32-36); Mean Corpuscular Volume 89.1 fL (80-100); Mean Platelet Volume 8.8 fL (7.4-10.4); Monocytes # (auto) 1.03 K/uL (0.11-0.59); Monocytes % (auto) 7.1 %; Neutrophils # (auto) 10.53 K/uL (1.4-6.5); Neutrophils % (auto) 72.8 %; Platelet Count 271 K/uL (130-400); RDW Coefficient of Variation 14.2 % (11.5-14.5); RDW Standard Deviation 46.4 fL (36.4-46.3); Red Blood Count 4.51 M/uL (4.7-6.1); White Blood Count 14.47 K/uL (4.8-10.8)
[2019-02-16 07:48] LABS: BUN Creatinine Ratio 11.7 (10-20); C Reactive Protein 8.47 mg/dl (0-0.29); Calcium 8.6 mg/dl (8.5-10.1); Creatinine Clr Calc Pharmacy 73.3 ml/min; Est GFR (African American) 93.4; Est GFR (Non-African American) 80.6; Potassium 4.2 mmol/L (3.5-5.1)
[2019-02-16] MEDS: INSULIN ASPART 100 UNITS/ML 3 ML PEN SC SCH ×4 (08:29→20:49)
[2019-02-16] MEDS: ENOXAPARIN INJ 40 MG/0.4 ML SYR SQ SCH (08:30)
[2019-02-16] MEDS: CLOPIDOGREL BISULFATE 75 MG TAB PO SCH (08:30)
[2019-02-16] MEDS ORDERED: INSULIN GLARGINE SOLOSTAR 100 UNITS/ML 3 ML PEN SC SCH (09:00)
--- NOTE | 2019-02-16 09:34 | Family Medicine Progress Note ---
Date of Service February 16, 2019 Assessment & Plan (1) CVA (cerebral vascular accident): Pt is a 63yo man with Hx of past strokes, Diabetes, dyslipidemia, HTN who presented with an acute stroke in his right central eloy seen on MRI. Acute pontine stroke -Continue Atorvastatin 80mg -continue plavix -Will continue talking to him about smoking cessation, diabetes control -neuro on board. Appreciate recs. -will continue to monitor BP HTN -hold home meds DMII -hgA1c of 9.4 -basal-bolus regimen DVT Proph: Lovenox Diet: Thin/pureed Dispo: pending PT/OT recs Supervising Physician Co-Signing Physician Notes I personally examined the patient and verified all euecda points of history and exam, discussed case, and agree with decision making with Dr Carcamo. Feeling better, moving arms well, basically no numbness. His dysphasia seems to be at his baseline. Speech therapy input noted, he wants to have ongoing speech therapy. Discussed insulins and coverage, he seems to be willing to transition to a basal bolus regimen if it is affordable, is not certain the last time he attempted but it was prohibitively expensive then. Vitals noted, in general he is awake and alert pleasant no distress. HEENT normocephalic atraumatic mucous membranes are moist. Breathing is unlabored no accessory muscle use. Neuro shows cranial nerves II through XII are grossly intact gross motor and sensory are intact. His deficits from yesterday seem to have for all functional purposes resolved Strokethis appears after further review to most likely been secondary to small vessel disease and likely is a thalamic/lacunar infarct. While his carotid on the ipsilateral side to potentially be a culprit, his rapid resolution of symptoms would be less likely for a large clot driven process. We can have evaluation as far as the carotid artery goes as an outpatient, but certainly nothing emergent is warranted, and he notes that due to dysphasia that he relates to his prior endarterectomy he is likely not a surgical candidate. Continue to work on smoke cessation, tighter sugar control, increased atorvastatin, follow blood pressure, continue aspirin and Plavix for about a month and then drop aspirin and continue on Plavix alone, cease taking NSAIDs. He does appear that he will be able to go home, but I would like to take a little bit more time to affect better sugar control and hopefully be L to get a basal bolus regimen covered given that uncontrolled diabetes and tobacco are both the largest reasons for him to have future strokes. Subjective Mr. Mills stated that he felt better in terms of his weakness today. Denied headaches, n/v, blurry vision, chest pain, SOB, palpitations, diarhea or constipation. Stated he just wanted to go home. Review of Systems Review of Systems: All systems reviewed & are unremarkable except as noted in HPI & below Physical Exam Physical Exam: General: Alert, oriented. No acute distress Neuro: CNII-XII grossly intact. LE strength 5/5 bilaterally. Left UE arm wea kness/soreness. HEENT: NC/AT, PERRLA, EOMI, oropharynx moist. Neck: No carotid bruits appreciated. Chest: Nontender to palpation. CV: RRR, Normal s1, s2. Resp: Breath sounds clear bilaterally, no increased effort of breathing. No crackles/rhonchi/rales. Abdomen: BS+. Soft, nontender, nondistended. No guarding. No organomegaly appreciated. Extremities: No edema. Results & Data Vital Signs (Past 12 Hours) Vital Signs Temp Pulse Resp BP BP Pulse Ox 02/16/19 07:47 36.6 C 81 18 149/81 H 92 02/16/19 03:53 36.7 C 71 18 122/55 L 92 02/15/19 23:17 36.7 C 61 18 141/54 H 94 (1) CVA (cerebral vascular accident) CVA mechanism: unspecified Qualified Code(s): I63.9 - Cerebral infarction, unspecified
--- NOTE | 2019-02-16 12:35 | Neurology Consultation ---
Date of Consultation February 16, 2019 Assessment & Plan (1) CVA (cerebral vascular accident): This is a 63-year-old right-handed male who presents with acute stroke symptoms of mild left hemiplegia and dysarthria. Stroke etiology at this time is unknown. Certainly does have signs of large vessel atherosclerotic disease, but considering his history of multifocal territory strokes, cannot rule out cardioembolic. Stroke risk factors include diabetes, hypertension, dyslipidemia, and tobacco use (as well as a history of previous strokes). Recommendations: I have ordered an updated hemoglobin A1c and lipid profile for stroke risk factor modifications. In addition I have ordered a homocystine, protein PARTS COUNTER SALESPERSON, cardiolipin antibodies, lupus anticoagulant to look for additional stroke risk factors. I have ordered an MRI of the brain for further evaluation of stroke. Follow-up echocardiogram results Agree with addition of Plavix to home aspirin for secondary stroke prevention. In the future could consider discontinuation of aspirin if there is issues with bleeding or bruising. I do not think that there is any surgical indications for his carotids at this time. Recommend 30-day cardiac event monitor as an outpatient to rule out paroxysmal A. fib as this would change his medical management. Avoid dehydration and hypotension as this could extend the stroke. Blood pressure recommendations while in hospital 175/95-150/80 For the first month after hospital discharge, blood pressure recommendations 150/90-130/80. After the first month, blood pressure recommendations 130/80-110/70 Follow-up PT/OT and speech recommendations for discharge planning Neurological recommendations for stroke risk factor modifications: Total cholesterol goal 100-200, and LDL goal less than 70 Hemoglobin A1c goal less than 7 Encourage regular cardiovascular exercise at least 30 minutes 3 times per week Smoking cessation Hospital Follow-up in neurology clinic in 1 month after discharge (patient has previously been established with Dr. Deleon) Thank you for allowing me to participate in this patient's care. If there is any questions or concerns, feel free to call/page me. History of Present Illness Reason for Consultation: Stroke evaluation Attending Physician: Sharath Lomax DO History of Present Illness This is a 63-year-old right-handed male who presents due to a 2-day history of left-sided weakness. Reports that in 2014 had a stroke with right-sided weakness. He also had an endarterectomy on the left which left him with left vocal cord paralysis. Patient was also seen by Dr. Deleon in 2017 due to a left temporal/parietal ischemic stroke. Patient reports that this morning his speech is still a little bit slurred and his swallowing is worse than his baseline. Still feels weak on the left side but reports that it is improved compared to yesterday. No new neurological symptoms. No changes with his vision. No abnormal headaches. No sensory changes. He does report that yesterday he felt like he had an episode of heart palpitations but otherwise denies heart pal pitations or chest pain on a regular basis. Patient does smoke. He has been on aspirin and Plavix in the past with some issues with bleeding and bruising. He is never been on Plavix just alone. He was on a baby aspirin daily at the time of this event. CTA of the head and neck was reviewed. Noted to have bilateral frontal ischemic strokes in the left parietal ischemic stroke which is old. Less than 50% stenosis of the bilateral ICAs Medical history significant for diabetes with diabetic neuropathy, hypertension, dyslipidemia, left temporal/parietal ischemic stroke in 2017, left hemispheric stroke in 2014, status post left carotid endarterectomy with left vocal cord paralysis. Family history: No family history of strokes at a young age. 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 Long history of tobacco use. Normally independent his activities of daily living. There is reports of emotional lability after his first stroke. Allergies Allergy/AdvReac Type Severity Reaction Status Date / Time Penicillins Allergy Unknown UNKNOWN-HAD Verified 02/15/19 12:59 CHILD Home Medications Home Medications Medication Instructions Recorded Confirmed Type aspirin [Aspir-81] 81 mg PO QPM #0 tab 03/15/18 02/15/19 History atorvastatin 20 mg PO HS #0 tab 03/15/18 02/15/19 History enalapril maleate 20 mg PO QPM #0 tab 03/15/18 02/15/19 History esomeprazole magnesium [Nexium] 20 mg PO QPM #0 cap 03/15/18 02/15/19 History insulin asp prt-insulin aspart 0 unit SC BID #0 btl 03/15/18 02/15/19 History [Novolog Mix 70-30FlexPen U-100] ibuprofen 800 mg PO Q6H PRN 02/15/19 02/15/19 History Patient History Medical History Cancer HODGKIN LYMPHOMA - 30 YEARS AGO; IN REMISSION Carotid artery stenosis S/P LEFT CEA APRIL 2018 Cricopharyngeal hypertrophy Diabetes mellitus, type 2 INSULIN DEPENDENT GERD (gastroesophageal reflux disease) Hiatal hernia History of stroke x 2: 2014, 2017; residual RUE weakness and 'memory issues' Hyperlipidemia Hypertension Schatzki's ring Vocal fold paralysis, left s/p L CEA; pt saw 06/18/18 for this dx Zenkers diverticulum Surgical History History of arthroscopy RT SHOULDER SCOPE History of carotid endarterectomy L CEA with patch 05/29/2018 History of esophagogastroduodenoscopy (EGD) WITH DILATION History of herniorrhaphy ING HERNIA REPAIR X3 Left leg injury REPAIR AFTER ACCIDENT Family History Other Alzheimer disease Aneurysm Social History Preferred Language: Yi Communication Ability: Effective Independent Consultant Required: No Beliefs That Will Affect Care: None Current Living Situation: Spouse Other Information That Helps Us Care for You: No Feels Safe at Home: Yes Safety Concerns: Feels Safe At This Time Smoking Status: Light tobacco smoker Tobacco Type: cigarettes Cigarettes Per Day: OCC. CIGARETTE, PREVIOUSLY QUIT IN APRIL 2015 Do You Dip or Chew Tobacco: Yes Smoking End Date: 02/14/19 Second Hand Exposure: No Tobacco Cessation Education Requested by Patient: No Hx Alcohol Use: Yes Alcohol type: beer Hx Substance Use: No Review of Systems Review of Systems: All systems reviewed & are unremarkable except as noted in HPI & below Physical Exam Physical Exam: Gen.: Patient is alert and oriented in no acute distress lying in bed Heart: Regular rate and rhythm Extremities: No gross deformities or rashes noted Neurological examination: Mental status: Patient is alert and oriented to person place and time. Able to give own history. Good fund of knowledge. Attention and concentration normal for the situation. Recent and remote memory intact Speech is fluent with mild dysarthria, no aphasia noted Cranial nerves: Funduscopic examination was unremarkable with no signs of papilledema. Pupils equally round and reactive to light. Extraocular muscles intact without nystagmus. No facial asymmetry noted. Facial sensation intact. Tongue midline. Good palatal elevation. Good shoulder shrug bilaterally. Hearing grossly intact voice. Strength: 5/5 both proximal and distal in all extremities. No arm drift.Tone is normal. Sensation: Grossly intact to light touch in all extremities Deep tendon reflexes: +2 in bilateral biceps and patellar. Coordination: Patient has good finger to nose without dysmetria Station within the bed is normal. Results & Data Vital Signs (Past 12 Hours) Vital Signs Temp Pulse Resp BP BP Pulse Ox 02/16/19 07:47 36.6 C 81 18 149/81 H 92 02/16/19 03:53 36.7 C 71 18 122/55 L 92 (1) CVA (cerebral vascular accident) CVA mechanism: unspecified Qualified Code(s): I63.9 - Cerebral infarction, unspecified
[2019-02-16 12:55] LABS: Estimated Average Glucose 223 mg/dl; Hemoglobin A1C 9.4 % (4.5-5.6)
--- NOTE | 2019-02-16 17:34 | Magnetic Resonance Report ---
MRI OF THE BRAIN WITHOUT CONTRAST CLINICAL HISTORY: Stroke like symptoms LEFT-SIDED WEAKNESS AND SLURRED SPEECH COMPARISON STUDY: CT scan dated 02/14/2019, MRI the brain dated 08/22/2017 FINDINGS: Sagittal T1, axial diffusion, proton density and T2 weighted axial, coronal FLAIR, and axial T1-weigh cy images were acquired. No intra or extra-axial mass lesions are visualized There is 11 mm focus of restricted water diffusion within the right central eloy consistent with an a cute infarct. There is no evidence of ventricular dilatation. Proton density T2-weighted and FLAIR images reveal scattered foci of increased T2 signal within the w jameson matter, likely on a small vessel basis. There are old infarcts present within both frontal lobes as well as the left parietal lobe. There are no abnormal flow voids. IMPRESSION: 1. 11 mm acute infarct involving the right central eloy 2. Old bilateral frontal lobe infarcts and old left parietal lobe infarct Electronically signed by: Denilson Espitia M.D. 02/16/2019 5:33 PM
[2019-02-16] MEDS: ATORVASTATIN 40 MG TAB PO SCH (20:33)
[2019-02-16] MEDS: ASPIRIN 81 MG ECTAB PO SCH (20:33)
[2019-02-16] MEDS: PANTOprazole 40 MG TAB PO SCH (20:34)
[2019-02-16] MEDS: ENALAPRIL MALEATE 10 MG TAB PO SCH (20:34)
[2019-02-17 04:33] LABS: Basophils # (auto) 0.04 K/uL (0-0.2); Basophils % (auto) 0.3 %; Eosinophils # (auto) 1.06 K/uL (0-0.5); Eosinophils % (auto) 9.1 %; Hematocrit (blood only) 39.8 % (42-52); Hemoglobin 12.8 g/dL (14.0-18.0); Immature Granulocytes # (auto) 0.02 K/uL (0.00-0.02); Immature Granulocytes % (auto) 0.2 %; Lymphocytes # (auto) 1.37 K/uL (1.2-3.4); Lymphocytes % (auto) 11.8 %; Mean Corpuscular Hgb Conc 32.2 g/dL (32-36); Mean Corpuscular Volume 87.7 fL (80-100); Monocytes # (auto) 0.97 K/uL (0.11-0.59); Monocytes % (auto) 8.3 %; Neutrophils # (auto) 8.17 K/uL (1.4-6.5); Neutrophils % (auto) 70.3 %; Platelet Count 293 K/uL (130-400); Red Blood Count 4.54 M/uL (4.7-6.1); White Blood Count 11.63 K/uL (4.8-10.8)
[2019-02-17 04:38] LABS: BUN Creatinine Ratio 13.8 (10-20); Calcium 8.5 mg/dl (8.5-10.1); Creatinine Clr Calc Pharmacy 74.9 ml/min; Est GFR (African American) 95.8; Est GFR (Non-African American) 82.6; Potassium 4.3 mmol/L (3.5-5.1)
[2019-02-17] MEDS: ENOXAPARIN INJ 40 MG/0.4 ML SYR SQ SCH (08:03)
[2019-02-17] MEDS: CLOPIDOGREL BISULFATE 75 MG TAB PO SCH (08:03)
[2019-02-17] MEDS: INSULIN ASPART 100 UNITS/ML 3 ML PEN SC SCH ×4 (09:12→20:44)
[2019-02-17] MEDS: INSULIN GLARGINE SOLOSTAR 100 UNITS/ML 3 ML PEN SC SCH (09:12)
--- NOTE | 2019-02-17 09:12 | Family Medicine Progress Note ---
Date of Service February 17, 2019 Assessment & Plan (1) CVA (cerebral vascular accident): Pt is a 63yo man with Hx of past strokes, Diabetes, dyslipidemia, HTN who presented with an acute stroke in his right central eloy seen on MRI. Acute pontine stroke -Continue Atorvastatin 80mg -continue plavix -Will continue talking to him about smoking cessation, diabetes control -neuro on board. Appreciate recs. -speech on board--appreciate recs. -will continue to monitor BP SMOKING HX/?COPD -Pt very wheezy this AM -Started on Spiriva to be given qAM. HTN -hold home med of Enalapril today to maintain stroke pressure of >150 and <175 per neurology recs. DMII -hgA1c of 9.4 -basal-bolus regimen DVT Proph: Lovenox Diet: Thin/pureed Supervising Physician Co-Signing Physician Notes I personally examined the patient and verified all euceda points of history and exam, discussed case, and agree with decision making with Dr Carcamo. Somewhat worried about his aspiration. It is somewhat worse. Speech input appreciated. For video fluoroscopy tomorrow. Discussed insulins. Vitals noted, in general he is awake and alert pleasant no distress. HEENT normocephalic atraumatic mucous membranes are moist. Breathing is unlabored no accessory muscle use. Neuro shows cranial nerves II through XII are grossly intact gross motor and sensory are intact. His deficits from yesterday seem to have for all functional purposes resolved Strokepons infarct. While his carotid on the ipsilateral side to potentially be a culprit, his rapid resolution of symptoms would be less likely for a large clot driven process. We can have evaluation as far as the carotid artery goes as an outpatient, but certainly nothing emergent is warranted, and he notes that due to dysphasia that he relates to his prior endarterectomy he is likely not a surgical candidate. Continue to work on smoke cessation, tighter sugar control, increased atorvastatin, follow blood pressure, continue aspirin and Plavix for about a month and then drop aspirin and continue on Plavix alone, cease taking NSAIDs. Dysphasia/aspirationvideo fluoroscopy tomorrow, ongoing speech eval and treat. Right now there is nothing that suggests a true aspiration pneumonia, continue to hold off on antibiotics. Should his breathing worsens/fever/white count go up, then certainly would want to start antibiotics but they do not appear indicated at this time. Uncontrolled diabetestomorrow Case management will be able to review for coverage for any basal bolus regimen possible, right now he is on either 7030 or NPH alone (not entirely clear) but he notes this is just due to cost. Should any of the basal insulins be covered, and should any of the bolus insulin to be covered, certainly we would want to switch him to a more physiologic regimen. Right now he is under pretty good control on a physiologic regimen, continue. DVT prophylaxisLovenox Subjective Mr. Mills stated that he is doing well in terms of his weakness he presented with. Was having some trouble eating pudding this morning in the room but states that's usual for him. Was also coughing up white mucus this AM as well. Review of Systems Review of Systems: All systems reviewed & are unremarkable except as noted in HPI & below Physical Exam Physical Exam: General: Alert, oriented. Coughing fits Neuro: CNII-XII grossly intact. LE strength 5/5 bilaterally. Left UE arm weakness/soreness. HEENT: NC/AT, PERRLA, EOMI, oropharynx moist. Chest: Nontender to palpation. CV: RRR, Normal s1, s2. Resp: Breath sounds with some scattered wheezes bilaterally, no increased effort of breathing Abdomen: Soft, nontender, nondistended. No guarding. No organomegaly appreciated. Extremities: No edema. Results & Data Vital Signs (Past 12 Hours) Vital Signs Temp Pulse Resp BP BP Pulse Ox 02/17/19 07:25 36.9 C 73 16 126/62 92 02/16/19 23:38 36.9 C 73 18 145/75 H 92 Laboratory Results Laboratory Results - last 24 hr 02/16/19 02/16/19 02/16/19 12:29 16:06 20:45 WBC RBC Hgb Hct MCV MCH MCHC RDW Std Deviation RDW Coeff of Javier Plt Count MPV Immature Gran % (Auto) Neut % (Auto) Lymph % (Auto) Lipscomb % (Auto) Eos % (Auto) Baso % (Auto) Immature Gran # (Auto) Neut # (Auto) Lymph # (Auto) Lipscomb # (Auto) Eos # (Auto) Baso # (Auto) Sodium Potassium Chloride Carbon Dioxide Anion Gap BUN Creatinine Est Cr Clr Drug Dosing Est GFR ( Amer) Est GFR (Non-Af Amer) BUN/Creatinine Ratio Glucose POC Glucose 88 86 Estimat Average Glucose 223 Hemoglobin A1c 9.4 H Calcium Triglycerides Cholesterol LDL Cholesterol, Calc VLDL Cholesterol, Calc HDL Cholesterol Cholesterol/HDL Ratio 02/17/19 02/17/19 02/17/19 04:07 04:07 07:49 WBC 11.63 H RBC 4.54 L Hgb 12.8 L Hct 39.8 L MCV 87.7 MCH 28.2 MCHC 32.2 RDW Std Deviation 45.0 RDW Coeff of Javier 14.0 Plt Count 293 MPV 9.0 Immature Gran % (Auto) 0.2 Neut % (Auto) 70.3 Lymph % (Auto) 11.8 Lipscomb % (Auto) 8.3 Eos % (Auto) 9.1 Baso % (Auto) 0.3 Immature Gran # (Auto) 0.02 Neut # (Auto) 8.17 H Lymph # (Auto) 1.37 Lipscomb # (Auto) 0.97 H Eos # (Auto) 1.06 H Baso # (Auto) 0.04 Sodium 139 Potassium 4.3 Chloride 107 Carbon Dioxide 32 Anion Gap 0 L BUN 13 Creatinine 0.96 Est Cr Clr Drug Dosing 74.9 Est GFR ( Amer) 95.8 Est GFR (Non-Af Amer) 82.6 BUN/Creatinine Ratio 13.8 Glucose 105 H POC Glucose 113 H Estimat Average Glucose Hemoglobin A1c Calcium 8.5 Triglycerides 121 Cholesterol 131 LDL Cholesterol, Calc 62 VLDL Cholesterol, Calc 24 HDL Cholesterol 45 Cholesterol/HDL Ratio 3 02/17/19 11:37 WBC RBC Hgb Hct MCV MCH MCHC RDW Std Deviation RDW Coeff of Javier Plt Count MPV Immature Gran % (Auto) Neut % (Auto) Lymph % (Auto) Lipscomb % (Auto) Eos % (Auto) Baso % (Auto) Immature Gran # (Auto) Neut # (Auto) Lymph # (Auto) Lipscomb # (Auto) Eos # (Auto) Baso # (Auto) Sodium Potassium Chloride Carbon Dioxide Anion Gap BUN Creatinine Est Cr Clr Drug Dosing Est GFR ( Amer) Est GFR (Non-Af Amer) BUN/Creatinine Ratio Glucose POC Glucose 219 H Estimat Average Glucose Hemoglobin A1c Calcium Triglycerides Cholesterol LDL Cholesterol, Calc VLDL Cholesterol, Calc HDL Cholesterol Cholesterol/HDL Ratio Medications Administered Home Medications aspirin [Aspir-81] 81 mg PO QPM #0 tab 03/15/18 [History Confirmed 02/15/19] atorvastatin 20 mg PO HS #0 tab 03/15/18 [History Confirmed 02/15/19] enalapril maleate 20 mg PO QPM #0 tab 03/15/18 [History Confirmed 02/15/19] esomeprazole magnesium [Nexium] 20 mg PO QPM #0 cap 03/15/18 [History Confirmed 02/15/19] insulin asp prt-insulin aspart [Novolog Mix 70-30FlexPen U-100] 0 unit SC BID #0 btl 03/15/18 [History Confirmed 02/15/19] ibuprofen 800 mg PO Q6H PRN 02/15/19 [History Confirmed 02/15/19] Active Medications Aspirin (Ecotrin Ectab) 81 mg PO QPM [facility] Stop: 03/17/19 20:59 Last Admin: 02/16/19 20:33 Dose: 81 mg Documented by: Atorvastatin Calcium (Lipitor) 80 mg PO QPM [facility] Stop: 03/17/19 20:59 Last Admin: 02/16/19 20:33 Dose: 80 mg Documented by: Clopidogrel Bisulfate (Plavix) 75 mg PO QAM [facility] Stop: 03/18/19 08:59 Last Admin: 02/17/19 08:03 Dose: 75 mg Documented by: Dextrose (Dextrose 50%) 25 - 50 ml IV UD PRN; Protocol PRN Reason: Hypoglycemia Protocol Stop: 03/17/19 17:14 Enalapril Maleate (Vasotec) 20 mg PO QPM [facility] Stop: 03/17/19 20:59 Last Admin: 02/16/19 20:34 Dose: 20 mg Documented by: Enoxaparin Sodium (Lovenox) 40 mg SQ QAM [facility] Stop: 03/18/19 08:59 Last Admin: 02/17/19 08:03 Dose: 40 mg Documented by: Glucagon (Glucagen) 1 mg IM UD PRN; Protocol PRN Reason: Hypoglycemia Protocol Stop: 03/17/19 17:14 Glucose (Glucose 40%) 15 - 30 gm PO UD PRN; Protocol PRN Reason: Hypoglycemia Protocol Stop: 03/17/19 17:14 Glucose (Dex4 Glucose) 4 - 8 tabs PO UD PRN; Protocol PRN Reason: Hypoglycemia Protocol Stop: 03/17/19 17:14 Insulin Aspart (Novolog Flexpen) 0 units SC ACHS [facility] Stop: 03/17/19 16:29 Last Admin: 02/17/19 09:12 Dose: 1 units Documented by: Insulin Glargine (Lantus Solostar Pen) 15 units SC DAILY [facility] Stop: 03/19/19 08:59 Last Admin: 02/17/19 09:12 Dose: 15 units Documented by: Miscellaneous (Carbohydrates For Hypoglycemia) 15 - 30 gm PO UD PRN PRN Reason: Hypoglycemia Treatment Stop: 03/17/19 17:14 Miscellaneous Information (Pharmacist Discharge Med Rec Consult) 1 ea N/A UD PRN PRN Reason: Consult Stop: 03/17/19 16:37 Pantoprazole Sodium (Protonix) 40 mg PO QPM [facility]; Protocol Stop: 03/17/19 20:59 Last Admin: 02/16/19 20:34 Dose: 40 mg Documented by: (1) CVA (cerebral vascular accident) CVA mechanism: unspecified Qualified Code(s): I63.9 - Cerebral infarction, unspecified
--- NOTE | 2019-02-17 13:39 | XRay Report ---
XR chest 1V portable HISTORY: aspiration pneumonitis/pneumonia? COMPARISON: Chest 02/15/2019. FINDINGS: The heart is normal in size. No pleural effusions. No pneumothorax. Right lung is clear. Sm all patchy density within the left lung base are noted. There is a 2 cm gallstone. IMPRESSION: Small patchy densities within the left lung base persist. This may represent a pneumonia possibly sec ondary to aspiration. Electronically signed by: Carlin Dumont M.D. 02/17/2019 1:37 PM
[2019-02-17] MEDS: ATORVASTATIN 40 MG TAB PO SCH (20:45)
[2019-02-17] MEDS: ASPIRIN 81 MG ECTAB PO SCH (20:45)
[2019-02-17] MEDS: PANTOprazole 40 MG TAB PO SCH (20:45)
[2019-02-18 07:03] LABS: Basophils # (auto) 0.04 K/uL (0-0.2); Basophils % (auto) 0.4 %; Eosinophils # (auto) 1.35 K/uL (0-0.5); Eosinophils % (auto) 12.9 %; Hematocrit (blood only) 41.7 % (42-52); Hemoglobin 13.2 g/dL (14.0-18.0); Immature Granulocytes # (auto) 0.02 K/uL (0.00-0.02); Immature Granulocytes % (auto) 0.2 %; Lymphocytes # (auto) 1.47 K/uL (1.2-3.4); Lymphocytes % (auto) 14.1 %; Mean Corpuscular Hgb Conc 31.7 g/dL (32-36); Mean Corpuscular Volume 87.4 fL (80-100); Mean Platelet Volume 8.8 fL (7.4-10.4); Monocytes # (auto) 0.82 K/uL (0.11-0.59); Monocytes % (auto) 7.9 %; Neutrophils # (auto) 6.73 K/uL (1.4-6.5); Neutrophils % (auto) 64.5 %; Platelet Count 270 K/uL (130-400); RDW Coefficient of Variation 13.8 % (11.5-14.5); RDW Standard Deviation 44.3 fL (36.4-46.3); Red Blood Count 4.77 M/uL (4.7-6.1); White Blood Count 10.43 K/uL (4.8-10.8)
[2019-02-18 07:30] LABS: BUN Creatinine Ratio 12.6 (10-20); Creatinine Clr Calc Pharmacy 74.1 ml/min; Est GFR (African American) 94.6; Est GFR (Non-African American) 81.6; Potassium 4.2 mmol/L (3.5-5.1)
[2019-02-18] MEDS: ENOXAPARIN INJ 40 MG/0.4 ML SYR SQ SCH (07:55)
[2019-02-18] MEDS: CLOPIDOGREL BISULFATE 75 MG TAB PO SCH (07:55)
[2019-02-18] MEDS: TIOTROPIUM BROMIDE 5 PUFF/90 MCG INH INH SCH (07:56)
[2019-02-18] MEDS ORDERED: TIOTROPIUM BROMIDE 5 PUFF/90 MCG INH INH SCH (09:00)
[2019-02-18] MEDS: INSULIN ASPART 100 UNITS/ML 3 ML PEN SC SCH ×4 (09:04→21:51)
[2019-02-18] MEDS: INSULIN GLARGINE SOLOSTAR 100 UNITS/ML 3 ML PEN SC SCH (09:05)
--- NOTE | 2019-02-18 15:16 | Fluoroscopy Report ---
FL video swallow HISTORY: Suspected aspiration pneumonia TECHNIQUE: Video fluoroscopic evaluation of swallowing was performed in the AP and lateral projection s by the speech pathology staff.. FLUOROSCOPY TIME: 2.1 minutes. NUMBER OF FLUOROSCOPY IMAGES: 0 COMPARISON STUDY: None. FINDINGS: There is minimal pharyngeal movement with piriform sinus and vallecular pooling and residue . No aspiration was visualized. The vallecular piriform residue did not clear despite multiple swallo wing attempts. The patient eventually expectorated. IMPRESSION: 1. Markedly abnormal swallowing mechanics with minimal pharyngeal movement. No aspiration was however demonstrated. 2. Please see the speech pathologist report for detailed findings and recommendations. Electronically signed by: Denilson Espitia M.D. 02/18/2019 3:15 PM
--- NOTE | 2019-02-18 17:15 | Family Medicine Progress Note ---
Date of Service February 18, 2019 Assessment & Plan (1) CVA (cerebral vascular accident): Pt is a 63yo man with Hx of past strokes, Diabetes, dyslipidemia, HTN who presented with an acute stroke in his right central eloy seen on MRI. Acute pontine stroke -Continue Atorvastatin 80mg -continue plavix -Will continue talking to him about smoking cessation, diabetes control -neuro on board. Following Recs -echo neg -bp goals per their note -no indication for carotid surgery at present pt/ot and speech for d/c recs -speech on board -appreciate recs. -Completed swallow study today -Blood pressure goal between 150/80 and 175/95 while hospitalized SMOKING HX/?COPD -Pt very wheezy this AM -Started on Spiriva 02/17 -Added as needed albuterol today HTN -Continue holding home med of Enalapril today to maintain stroke pressure of >150 and <175 per neurology recs. DMII -hgA1c of 9.4 -basal-bolus regimen -Likely needs adjustment to his insulin regimen. Has outpatient appointment sc heduled with Dr. Sanz, recommended the patient meet with a assistant producer well there as well. -Stressed to the patient that if he does not make the lifestyle changes we discussed his prognosis is poor. DVT Proph: Lovenox Diet: Thin/pureed Full code Dispo: Pending speech and swallow, PT, and OT evaluations Supervising Physician Co-Signing Physician Notes Patient seen and examined with Dr. Gomez. Agree with history, assessment and plan of care with the following updates. Pt is a 63yo man with Hx of past strokes, Diabetes, dyslipidemia, HTN who presented with an acute stroke in his right central eloy seen on MRI. 1. acute pontine stroke. Atorvastatin 80g, Plavix, ASA. 2. smoking hx ?COPD. started Spiriva. Smoking essation. 3. HTN. Holding home enalapril. 4. uncontrolled diabetes. A1C 9.4. continue basal bolus insulin. Follows with endo. Rec seeing recoil spring winder/it director as an outpatient for assistance with food choices. 5. hx of swallowing dysfunction, now worse with new stroke. Has been advised that he should consider PEG in the past but has refused. Spoke with speech therapist today. New swallow today with minimal movement of the pharyngeal muscles. He is very high risk for aspiration. Rec reconsidering PEG. Consult GI. Subjective Patient sitting upright in bed this morning in no acute distress. No acute events overnight, tolerating his diet, sleeping well, voiding and stooling appropriately. Had a lengthy conversation with the patient regarding lifestyle management. Discussed the absolute importance of smoking cessation and diabetes management, in addition we discussed adding 15 minutes of aerobic exercise to his daily routine. Patient was agreeable and seemed motivated to make necessary changes in his life. Patient endorsed being able to swallow appropriately this morning and is concerned for his speech and swallow evaluation. Patient states that since his previous stroke he has used his left hand more however his most recent stroke has impaired his ability to use his left hand so now he finds himself using his right hand more. Answered all questions no acute concerns will continue to monitor. Patient denies fevers chills nausea vomiting diarrhea headache abdominal pain muscle pains or aches. No other signs or symptoms of acute process. Physical Exam Physical Exam: General: Thin elderly gentleman in no acute distress Eyes: EOMI PERRLA Neck: Normal to visual inspection, trachea midline, negative JVD Chest: Not moving good air bilaterally, bilateral wheezes in the lower lobes. Cardiac: Regular rate and rhythm, no murmurs, rubs, or gallops GI: Normal bowel sounds nontender nondistended MSK: Moves all extremities Left side upper and lower extremity strength 4 out of 5 Right side upper and lower extremity 5 out of 5 Skin: Warm dry and intact Neuro: Cranial nerves II through XII intact, rapid alternating movements intact, some hesitancy with finger to nose, grossly weaker on left side than right. Patient reports speech and swallowing are improved. Psych: Goal-directed, logical, motivated to change Results & Data Vital Signs (Past 12 Hours) Vital Signs Temp Pulse Resp BP Pulse Ox 02/18/19 07:16 36.7 C 76 18 132/83 92 02/17/19 23:58 36.7 C 64 18 134/69 93 Resident Activity Tracking Resident Involvement: Resident Care Provided Care Provided: Adult Hospital Medicine (1) CVA (cerebral vascular accident) CVA mechanism: unspecified Qualified Code(s): I63.9 - Cerebral infarction, unspecified
[2019-02-18] MEDS: ATORVASTATIN 40 MG TAB PO SCH (21:54)
[2019-02-18] MEDS: ASPIRIN 81 MG ECTAB PO SCH (21:55)
[2019-02-18] MEDS: PANTOprazole 40 MG TAB PO SCH (21:58)
--- NOTE | 2019-02-19 07:55 | Family Medicine Progress Note ---
Date of Service February 19, 2019 Assessment & Plan (1) CVA (cerebral vascular accident): Pt is a 63yo man with Hx of past strokes, Diabetes, dyslipidemia, HTN who presented with an acute stroke in his right central eloy seen on MRI. Acute pontine stroke -Continue Atorvastatin 80mg -continue plavix -Will continue talking to him about smoking cessation, diabetes control -neuro on board. Following Recs -echo neg -bp goals per their note -no indication for carotid surgery at present pt/ot and speech for d/c recs -speech on board -appreciate recs. -Completed swallow study today -Blood pressure goal between 150/80 and 175/95 while hospitalized SMOKING HX/?COPD -Pt very wheezy this AM -Started on Spiriva 02/17 -Added as needed albuterol today HTN -Continue holding home med of Enalapril today to maintain stroke pressure of >150 and <175 per neurology recs. DMII -hgA1c of 9.4 -basal-bolus regimen -Likely needs adjustment to his insulin regimen. Has outpatient appointment sc heduled with Dr. Bhatia, recommended the patient meet with a educator senior clinical well there as well. -Stressed to the patient that if he does not make the lifestyle changes we discussed his prognosis is poor. DVT Proph: Lovenox Diet: Thin/pureed Full code Dispo: Pending speech and swallow, PT, and OT evaluations Results & Data Vital Signs (Past 12 Hours) Vital Signs Temp Pulse Resp BP Pulse Ox 02/19/19 07:24 36.7 C 70 18 129/72 94 02/19/19 00:05 36.5 C 58 L 18 150/83 H 92 Laboratory Results 02/18/19 06:53 02/18/19 06:53 02/19/19 02/18/19 02/18/19 Range/Units 07:45 20:22 16:35 POC Glucose 137 H 211 H 132 H (70-99) 02/18/19 Range/Units 11:44 POC Glucose 229 H (70-99) Medications Administered Current Inpatient Medications Aspirin (Ecotrin Ectab) 81 mg PO QPM [facility] Stop: 03/17/19 20:59 Last Admin: 02/18/19 21:55 Dose: 81 mg Documented by: Atorvastatin Calcium (Lipitor) 80 mg PO QPM [facility] Stop: 03/17/19 20:59 Last Admin: 02/18/19 21:54 Dose: 80 mg Documented by: Clopidogrel Bisulfate (Plavix) 75 mg PO QAM [facility] Stop: 03/18/19 08:59 Last Admin: 02/18/19 07:55 Dose: 75 mg Documented by: Dextrose (Dextrose 50%) 25 - 50 ml IV UD PRN; Protocol PRN Reason: Hypoglycemia Protocol Stop: 03/17/19 17:14 Enalapril Maleate (Vasotec) 20 mg PO QPM [facility] Stop: 03/17/19 20:59 Last Admin: 02/16/19 20:34 Dose: 20 mg Documented by: Enoxaparin Sodium (Lovenox) 40 mg SQ QAM [facility] Stop: 03/18/19 08:59 Last Admin: 02/18/19 07:55 Dose: 40 mg Documented by: Glucagon (Glucagen) 1 mg IM UD PRN; Protocol PRN Reason: Hypoglycemia Protocol Stop: 03/17/19 17:14 Glucose (Glucose 40%) 15 - 30 gm PO UD PRN; Protocol PRN Reason: Hypoglycemia Protocol Stop: 03/17/19 17:14 Glucose (Dex4 Glucose) 4 - 8 tabs PO UD PRN; Protocol PRN Reason: Hypoglycemia Protocol Stop: 03/17/19 17:14 Insulin Aspart (Novolog Flexpen) 0 units SC ACHS [facility] Stop: 03/17/19 16:29 Last Admin: 02/18/19 21:51 Dose: 3 units Documented by: Insulin Glargine (Lantus Solostar Pen) 15 units SC DAILY [facility] Stop: 03/19/19 08:59 Last Admin: 02/18/19 09:05 Dose: 15 units Documented by: Miscellaneous (Carbohydrates For Hypoglycemia) 15 - 30 gm PO UD PRN PRN Reason: Hypoglycemia Treatment Stop: 03/17/19 17:14 Miscellaneous Information (Pharmacist Discharge Med Rec Consult) 1 ea N/A UD PRN PRN Reason: Consult Stop: 03/17/19 16:37 Pantoprazole Sodium (Protonix) 40 mg PO QPM [facility]; Protocol Stop: 03/17/19 20:59 Last Admin: 02/18/19 21:58 Dose: 40 mg Documented by: Tiotropium [place] (Spiriva) 1 puffs INH QAM [facility] Stop: 03/20/19 08:59 Last Admin: 02/18/19 07:56 Dose: 1 puffs Documented by: (1) CVA (cerebral vascular accident) CVA mechanism: unspecified Qualified Code(s): I63.9 - Cerebral infarction, unspecified
[2019-02-19] MEDS: CLOPIDOGREL BISULFATE 75 MG TAB PO SCH (08:05)
[2019-02-19] MEDS: TIOTROPIUM BROMIDE 5 PUFF/90 MCG INH INH SCH (08:05)
[2019-02-19] MEDS: ENOXAPARIN INJ 40 MG/0.4 ML SYR SQ SCH (08:05)
[2019-02-19 08:07] LABS: Basophils # (auto) 0.06 K/uL (0-0.2); Basophils % (auto) 0.7 %; Eosinophils # (auto) 1.51 K/uL (0-0.5); Eosinophils % (auto) 17.1 %; Hematocrit (blood only) 43.4 % (42-52); Hemoglobin 13.8 g/dL (14.0-18.0); Immature Granulocytes # (auto) 0.02 K/uL (0.00-0.02); Immature Granulocytes % (auto) 0.2 %; Lymphocytes # (auto) 1.77 K/uL (1.2-3.4); Lymphocytes % (auto) 20.1 %; Mean Corpuscular Hgb Conc 31.8 g/dL (32-36); Mean Corpuscular Volume 87.7 fL (80-100); Mean Platelet Volume 9.1 fL (7.4-10.4); Monocytes % (auto) 10.2 %; Neutrophils # (auto) 4.56 K/uL (1.4-6.5); Neutrophils % (auto) 51.7 %; Platelet Count 315 K/uL (130-400); RDW Coefficient of Variation 13.7 % (11.5-14.5); RDW Standard Deviation 43.7 fL (36.4-46.3); Red Blood Count 4.95 M/uL (4.7-6.1); White Blood Count 8.82 K/uL (4.8-10.8)
[2019-02-19 08:37] LABS: BUN Creatinine Ratio 16.6 (10-20); Calcium 9.4 mg/dl (8.5-10.1); Creatinine Clr Calc Pharmacy 71.2 ml/min; Est GFR (Non-African American) 77.7; Potassium 4.2 mmol/L (3.5-5.1)
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
[2019-02-19] MEDS: INSULIN ASPART 100 UNITS/ML 3 ML PEN SC SCH ×2 (09:47→12:52)
[2019-02-19] MEDS: INSULIN GLARGINE SOLOSTAR 100 UNITS/ML 3 ML PEN SC SCH (09:49)
--- NOTE | 2019-02-19 12:51 | Pharmacy Report ---
Pharmacist Stroke Counseling - Date of Service February 19, 2019 - Scope: Pharmacy has been consulted to provide medication discharge counseling for this patient admitted with [ischemic stroke] [hemorrhagic stroke] [transient ischemic attack] as per the Pharmacist Discharge Counseling for Stroke Patients Protoc . - Medications on Discharge: New clopidogrel 75 mg Tablet 75 mg PO QAM Qty: 30 RF: 3 Spiriva with HandiHaler 18 mcg Capsule, W/Inhalation Device 1 puff inhalation QAM Qty: 1 RF: 0 atorvastatin 40 mg Tablet 80 mg PO QPM Qty: 30 RF: 3 Continued aspirin [Aspir-81] 81 mg Tablet,Delayed Release (Dr/Ec) 81 mg PO QPM Qty: 0 RF: 0 esomeprazole magnesium [Nexium] 20 mg Capsule,Delayed Release(Dr/Ec) 20 mg PO QPM Qty: 0 RF: 0 Novolog Mix 70-30FlexPen U-100 100 unit/mL (70-30) Insulin Pen SC BID Qty: 0 RF: 0 ibuprofen 200 mg Tablet 800 mg PO Q6H PRN (Reason: Pain) RF: 0 Discontinued atorvastatin 20 mg Tablet 20 mg PO HS Qty: 0 RF: 0 enalapril maleate 20 mg Tablet 20 mg PO QPM Qty: 0 RF: 0 - Action: The above medications, specifically ones for stroke treatment/prophylaxis, have been reviewed in detail with the patient and/or patient livestock sales representative(s) prior to discharge. This includes indication, common adverse reactions, drug interactions, and medication administration. Medication counseling has been employed using the teach-back method to ensure understanding. - Outcome: The patient and/or patient livestock sales representative(s) have demonstrated understanding of the medications. Please note, they are aware that the pharmacist will call them within 72 hours post-discharge to confirm that the appropriate medications are being taken and answer any further medication related questions the patient might have at that time. Contact information Individual to be contacted: patient Phone number: [phone] Additional comments: Patient was on combination of Plavix plus ASA in the past. He denies any side effects from plavix other than increased bruising. I stressed to the patient the importance of notifying his providers and/or dentist if he is to have any procedures in the future. Patient takes Nexium at home. I recommended to Dr. Gomez that patient be changed to pantoprazole due to drug interaction with Plavix. Thank you for allowing pharmacy to be involved in the care of this patient. Please call [phone] or [phone] with any additional questions
--- NOTE | 2019-02-19 13:22 | Discharge Summary ---
Date of Service February 19, 2019 Admission HPI Per Admitting Provider Patient is a very pleasant 63-year-old male with left-sided weakness. He notes it started about 2 days ago he woke up with it and then it started to get better again, so he ignored it. Today woke up with it and it was not going away. He had left arm weakness and a facial droop and left leg weakness and off balance. Since his symptoms were not going away his wanted him to come in, he initially resisted but then later decided to come in. Unfortunately his clinical evaluation is consistent with having had another stroke. He has had strokes in the past. His sugars have been running high, but he has lows after prolonged fasting such as when he is asleep. He is only on NPH insulin, as he notes that he is not able to afford other insulins. He also continues to smoke. Admission Exam Per Admitting Provider HEENT normal cephalic atraumatic mucous membranes are moist. Cardio is regular without rubs murmurs or gallops. Lungs are clear to auscultation bilaterally no rales rhonchi or wheeze. Skin shows no rashes no pallor or icterus. Abdomen soft nondistended nontender no masses or organomegaly Extremities show no sinus clubbing or edema Neuro shows cranial nerves II through XII grossly intact with the exception of a bit of a left facial droop, of note it does seem to come and go a little bit even during interview and exam. Motor is just slightly weak left arm and left leg gross motor being about 4+ out of 5 compared to 5 out of 5 on the right. Sensory subjectively is diminished on the left. Mental status shows good recent and remote recall normal mood and affect fair judgment and insight Muscular skeletal exam shows no gross lesions Principal Diagnosis Pontine stroke Discharge Exam General: Thin elderly gentleman in no acute distress Eyes: EOMI PERRLA Neck: Normal to visual inspection, trachea midline, negative JVD Chest: Not moving good air bilaterally, bilateral wheezes in the lower lobes. Cardiac: Regular rate and rhythm, no murmurs, rubs, or gallops GI: Normal bowel sounds nontender nondistended MSK: Moves all extremities Left side upper and lower extremity strength 4 out of 5 Right side upper and lower extremity 5 out of 5 Skin: Warm dry and intact Neuro:left side weaker than right. Psych: Goal-directed, logical, motivated to change Discharge Data Allergies Allergy/AdvReac Type Severity Reaction Status Date / Time Penicillins Allergy Unknown UNKNOWN-HAD Verified 02/15/19 12:59 CHILD Consultations 02/15/19 13:54 ED Decision to Admit Stat 02/15/19 16:38 Consult Case Management - Discharge Planning Routine Consult Neurology Routine 02/15/19 16:45 Consult Case Management - Discharge Planning Routine Consult [employer] computer consultant Routine 02/18/19 17:50 Consult Gastroenterology Routine Ordered Studies 02/15/19 12:24 CT angio head wo/w Stat CT angio neck with con Stat 02/16/19 12:16 MR brain wo con Routine 02/18/19 14:30 FL video swallow Routine Hospital Course (1) CVA (cerebral vascular accident): Pt is a 63yo man with Hx of past strokes, Diabetes, dyslipidemia, HTN who presented with an acute stroke in his right central eloy seen on MRI. Acute pontine stroke Patient presented with 2-day history of left-sided weakness and symptoms concerning for a stroke. subsequent CT & MRI scan confirmed presence of the stroke. This is the patient's second major stroke and he also has a history of a TIA. Etiology of present stroke is still unknown patient does have significant atherosclerotic disease. A neurology consultation was obtained and the recommendations were followed. Echocardiogram did not show evidence of cardioembolic source. PT and OT evaluated the patient and believe he would be a candidate for outpatient rehab however the patient denied. Speech and swallow evaluation was also performed see below. Several discussions were had with patient regarding lifestyle modifications specifically addressing smoking cessation, diabetes control, and obtaining adequate aerobic exercise -Increased Atorvastatin 80mg -Started on plavix -Do not take anti hypertensives for 1 month -BP Goals -For the first month after hospital discharge, blood pressure recommendations 150/90-130/80. -After the first month, blood pressure recommendations 130/80-110/70 -Neurological recommendations for stroke risk factor modifications: Total cholesterol goal 100-200, and LDL goal less than 70 Hemoglobin A1c goal less than 7 Encourage regular cardiovascular exercise at least 30 minutes 3 times per week Smoking cessation -Discharged with 30-day cardiac event monitor per neuro Aspiration Risk Patient has a history of trouble with aspiration during this hospitalization he received formal speech and swallow evaluation with videofluoroscopy. Study demonstrated significant fatigue of his pharyngeal muscles and inability for a food bolus to transit the esophagus. Speech and swallow labeled the patient is a high aspiration risk. The only way to prevent aspiration in this patient would be PEG tube placement, this was discussed with the patient and a GI consult was placed. Patient reports he would like to take time to consider placement of a PEG tube. I think it would be reasonable for him to have a palliative discussion with either his primary care provider or a formal palliative evaluation as an outpatient. SMOKING HX/?COPD Patient has a long history of smoking approximately ppd for several years. He has likely developed some COPD as a result of this. During this hospitalization he was provided with albuterol as needed and started on Spiriva 1 puff every morning. Patient was provided with smoking cessation HTN As above DMII -hgA1c of 9.4 -basal-bolus regimen -Has outpatient appointment scheduled with Dr. Bhatia, defer further management to her. Recommended the patient meet with a personal development educator well there as well. -Stressed to the patient that if he does not make the lifestyle changes we discussed his prognosis is poor. DVT Proph: Lovenox while hospitalized Diet: Thin/pureed Full code Dispo: Pending speech and swallow, PT, and OT evaluations Total Time Total Time Spent Total Time Spent (In Minutes): 90 Discharge Plan Discharge Items Patient Disposition: Home - Self-Care Reason For Visit: STROKE Discharge Diagnosis: Pontine Stroke Discharge Goals: Decrease discomfort and Improve function Activity: As commented below Activity Comment: as tolerated Non-emergency contact: Primary Care Provider Call non-emergency contact if: you have any medication questions, your pain is not controlled and your temperature is above 100.5 Follow-up/Referrals: Priti Shah, [Primary Care Provider] - 02/21/19 9:40 am (Please, follow up with Dr. Shah on February 21 at 9:40 am. *If you need to change this appointment, call the office at [phone].) Diet: Carb Consistent or DM2 Liquid Consistency: Pudding thick Addtl Provider Instructions: Care instructions: You were admitted to [facility] for treatment of pontine stroke. A discharge summary will be sent to your primary care physician to ensure continuity of care. Please bring this discharge summary with you to your next office appointment so that your provider can review it at that time. Swallowing: During this hospitalization you had a speech and swallow evaluation demonstrating significant fatigue of the pharyngeal muscles. In other words the muscles that help you swallow are not working correctly. The video test performed on you demonstrated only a small portion of food was able to transit the esophagus and some of it ended up in the lungs. On the day of discharge you had a GI evaluation where he will elected to delay placement of a PEG tube. As you physicians we feel it is in your medical best interest to have a PEG tube placed. Not having a PEG tube placed will likely lead to more food ending up in your lungs and the development of a pneumonia. We suggest you only consume thickened liquids and foods that are easy to transit the esophagus. We also recommend that you talk to either your primary care physician or a reproduction specialist about goals of care. Follow-up appointments: - Keep all your follow-up appointments as already scheduled. If you cannot make an appointment, notify your provider. - Please call to request a follow-up appointment with your primary care physician within one week of discharge. Please let us know if you are unable to obtain an appointment Follow-up labs: - Please go to a lab nearest you and obtain the requested lab work. Please have this completed at least 3 hours before your doctor's appointment (or the day before your appointment if possible). Medications: BLOOD PRESSURE:Do Not Take your blood pressure medications (enalpril) until 03/21/2019 - Your medication list has been reviewed and reconciled upon discharge to ensure accuracy and continuity of care. - You are provided with a list of all your current medications at this time. Please review this list closely and make note of any changes. - Please take all of your medications exactly as prescribed. - Tell your primary care provider if you cannot afford your medications. - Call your primary care provider if you are having any side effects or any other problems. - Call your primary care provider before taking any over the counter medications or supplements, including herbals and vitamins, because some of these may interact with your current medications and/or make your symptoms worse. Symptoms: Please call your primary care provider for symptoms including, but not limited to: fevers (temperatures greater than 100.4), chills, intractable nausea or vomiting, diarrhea, rash, shortness of breath, bleeding, pain, or if you experience any worsening of the symptoms that brought you to the hospital. For EMERGENCY and VERY SERIOUS health-related issues, such as chest pain, shortness of breath, or sudden onset of the symptoms that brought you to the hospital, you may need to call 911 or go directly to the Emergency Room It has been our privilege to take care of you during your hospital stay. And Above All Else Fell Better! Best Wishes, Morris Gomez MD PGY1 Resident, Family & Community Medicine [facility] Residency at [facility] - [address], [address] MC: [address] [place] [address] Prescriptions: New clopidogrel 75 mg Tablet 75 mg PO QAM Qty: 30 RF: 3 Spiriva with HandiHaler 18 mcg Capsule, W/Inhalation Device 1 puff inhalation QAM Qty: 1 RF: 0 atorvastatin 40 mg Tablet 80 mg PO QPM Qty: 30 RF: 3 Continued aspirin [Aspir-81] 81 mg Tablet,Delayed Release (Dr/Ec) 81 mg PO QPM Qty: 0 RF: 0 esomeprazole magnesium [Nexium] 20 mg Capsule,Delayed Release(Dr/Ec) 20 mg PO QPM Qty: 0 RF: 0 Novolog Mix 70-30FlexPen U-100 100 unit/mL (70-30) Insulin Pen SC BID Qty: 0 RF: 0 ibuprofen 200 mg Tablet 800 mg PO Q6H PRN (Reason: Pain) RF: 0 Discontinued atorvastatin 20 mg Tablet 20 mg PO HS Qty: 0 RF: 0 enalapril maleate 20 mg Tablet 20 mg PO QPM Qty: 0 RF: 0 Visit Report Forms: Smoking Cessation Stand-Alone Forms: Medications to Prevent Stroke, My [facility]/Other Patient Handouts: Stroke Sx, Stroke Resources Support, Stroke Tips Swallow, Stroke Dc, Stroke Caregiver Self Care Discharge Orders: Discharge Order (Routine); Ordered 02/19/19 Ordered By: Morris Gomez Admission Data Admit Date/Time: 02/15/19 15:19 Attending Provider: Doug Eddy Admit Provider: Sharath Lomax Primary Care Provider: Priti Shah Other Providers: Anand Noe ; Belem Collier ; Carlos A Vaughn Service: Medical Other Interventions: Discharge Summary Assessment (RN) Last Done: 02/19/19 14:27 DC Date/Time DO NOT enter until pt leaves facility: 02/19/19 15:16 Supervising Physician Co-Signing Physician Notes Patient seen and examined with Dr. Gomez. Agree with history, assessment and plan of care with the following updates. Pt is a 63yo man with Hx of past strokes, Diabetes, dyslipidemia, HTN who presented with an acute stroke in his right central eloy seen on MRI. 1. acute pontine stroke. Atorvastatin 80g, Plavix, ASA. 2. smoking hx ?COPD. started Spiriva, continue. Encouraged continued smoking essation. 3. HTN. Holding home enalapril. 4. uncontrolled diabetes. A1C 9.4. continue basal bolus insulin. Follows with endo. Rec seeing clinical educator/javascript software engineer as an outpatient for assistance with food choices. 5. hx of swallowing dysfunction, now worse with new stroke. Has been advised that he should consider PEG in the past but has refused. He understands that he is very high risk for aspiration. Spoke with GI regarding PEG, but is still deciding. If he decides to have PEG placed, this can be done as an outpatient. Appreciate speech therapy and GI recommendations. Dispo: discharge home today. Follow up scheduled with PCP for February 21 at 940am. Can consider palliative care as an outpatientbut will defer to PCP for continued goals of care discussion. I personally spent 35 minutes discharge planning for this patient. Resident Activity Tracking Resident Involvement: Resident Care Provided Care Provided: Adult Hospital Medicine
[2019-02-19] MEDS ORDERED: STROKE PATIENT DISCHARGE STA (14:17)
--- NOTE | 2019-02-22 14:00 | Pharmacy Report ---
Pharmacist Post D/C Phone Note - Phone Note: Date of phone call: February 22, 2019. Individual with whom pharmacist spoke to: Patient's The following questions were reviewed during the phone call with responses listed below each: Can you tell me the medications that you are currently taking as well as when and how you take each medication? -See Table Below When have you missed any doses of your medications? - Per , patient has not missed any doses of medications post-discharge. What side effects are you having from your medications, specifically, the new medications you were started on? - The patient is currently not experiencing any side effects from his medications. What questions do you have about your medications? - Patient's denies any questions or concerns about current medication regimen at this time. What problems are you having obtaining your medications? - reports issues with pt's insurance covering Spiriva inhaler. states Dr. Shah was able to prescribe a different inhaler that would be covered by insurance. She cannot recall the name of the inhaler. When is your next appointment with your primary care doctor? - The patient visited Dr. Shah yesterday, 02/21. Per , the doctor performed a thorough review of all medications and answered all questions and concerns. Additional comments: - Patient was previously taking Lipitor 20mg at bedtime. stated the patient still has some 20mg tablets at home. Instructed that the patient c ould take four of the 20mg tablets to equal his current dose so as not to waste this pills. As per the Pharmacist Discharge Counseling for Stroke Patients Protocol, this phone call has been completed within 72 hours of discharge. Thank you for allowing us to be involved in the care of this patient. - Home Medications: Home Medications Medication Instructions Recorded Confirmed Novolog Mix 70-30FlexPen U-100 0 unit SC BID #0 btl 03/15/18 02/15/19 aspirin [Aspir-81] 81 mg PO QPM #0 tab 03/15/18 02/15/19 esomeprazole magnesium [Nexium] 20 mg PO QPM #0 cap 03/15/18 02/15/19 ibuprofen 800 mg PO Q6H PRN 02/15/19 02/15/19 New Rx's Medication Instructions Recorded atorvastatin 80 mg PO QPM #30 tab 02/19/19 clopidogrel 75 mg PO QAM #30 tab 02/19/19 tiotropium bromide [Spiriva with 1 puff INHALATION QAM #1 inh 02/19/19 HandiHaler]
[2019-03-01 17:54] LABS: Anti Cardiolipin Ab IgG <14 GPL (< = 14); Anti Cardiolipin Ab IgM <12 MPL (< = 12); B2 Glycoprotein IgA <9 SAU (<=20); B2 Glycoprotein IgG <9 SGU (<=20); B2 Glycoprotein IgM <9 SMU (<=20); Lupus Anticoagulant Positive (Negative); Protein S Functional(Activity) 124 % (70-150)
== END 2019-02-19 15:16 | disposition home or self-care (01) | DRG 65 ==
LOC: ED 12:11 → 2S 15:19 → SUATTDRO 15:19 → 2S 15:56 → 4E 02-16 18:53

== ENCOUNTER 2024-06-11 05:49 | Inpatient (IN) ==
--- NOTE | 2024-05-23 12:10 | PAT Medication Instructions ---
Medication Instructions Date of Service May 23, 2024 Home Medications Medication Instructions Recorded insulin syringe-needle U-100 0.5 #100 ea 10/19/23 mL 31 gauge x 5/16" (Advocate Syringes) pen needle, diabetic 32 gauge x #200 ea 01/10/24 5/32" (BD Ultra-Fine Belen Pen Needle) insulin aspart U-100 100 unit/mL 1 sliding scale dose subcut 01/17/24 (3 mL) subcutaneous pen (Novolog USEASDIRECTD #15 mL FlexPen U-100 Insulin aspart) blood-glucose meter,continuous #1 ea 01/31/24 (FreeStyle Que 3 [place]) blood sugar diagnostic (OneTouch #100 ea 02/14/24 Verio test strips) atorvastatin 80 mg tablet 80 mg PO QPM #90 tabs 04/11/24 umeclidinium 62.5 mcg-vilanterol 1 inh inhalation QAM #60 ea 04/15/24 25 mcg/actuation powdr for inhalation (Anoro Ellipta) cyclobenzaprine 5 mg tablet 5 mg PO TID PRN muscle spasm #20 04/29/24 tabs blood-glucose sensor (FreeStyle #2 ea 05/10/24 Que 3 Sensor device) Medication List: latanoprost 0.005 % eye drops 1 drp ophthalmic (eye) HS insulin aspart U-100 100 unit/mL (3 mL) subcutaneous pen (Novolog FlexPen U-100 Insulin aspart) 1 sliding scale dose subcut USEASDIRECTD atorvastatin 80 mg tablet 80 mg PO QPM umeclidinium 62.5 mcg-vilanterol 25 mcg/actuation powdr for inhalation (Anoro Ellipta) 1 inh inhalation QAM cyclobenzaprine 5 mg tablet 5 mg PO TID PRN muscle spasm amlodipine 5 mg tablet 5 mg PO QPM aspirin 81 mg tablet,delayed release (Adult Aspirin Regimen) 81 mg PO QAM clopidogrel 75 mg tablet (Plavix) 75 mg PO QPM insulin glargine 100 unit/mL (3 mL) subcutaneous pen (Lantus Solostar U-100 Insulin) 15 - 16 unit subcut QAM losartan 50 mg tablet 50 mg PO QPM omeprazole 20 mg tablet,delayed release 20 mg PO QAM tadalafil 5 mg tablet (Cialis) 5 mg PO QPM MEDICATION INSTRUCTIONS: Continue as directed latanoprost 0.005 % eye drops 1 drp ophthalmic (eye) HS umeclidinium 62.5 mcg-vilanterol 25 mcg/actuation powdr for inhalation (Anoro Ellipta) 1 inh inhalation QAM ASK your prescriber and surgeon aspirin 81 mg tablet,delayed release (Adult Aspirin Regimen) 81 mg PO QAM clopidogrel 75 mg tablet (Plavix) 75 mg PO QPM DO NOT take the morning of surgery insulin aspart U-100 100 unit/mL (3 mL) subcutaneous pen (Novolog FlexPen U-100 Insulin aspart) 1 sliding scale dose subcut USEASDIRECTD Take morning of surgery With a small sip of water, OTHERWISE NOTHING TO EAT OR DRINK AFTER MIDNIGHT: omeprazole 20 mg tablet,delayed release 20 mg PO QAM cyclobenzaprine 5 mg tablet 5 mg PO TID PRN muscle spasm Take evening before surgery insulin aspart U-100 100 unit/mL (3 mL) subcutaneous pen (Novolog FlexPen U-100 Insulin aspart) 1 sliding scale dose subcut USEASDIRECTD amlodipine 5 mg tablet 5 mg PO QPM losartan 50 mg tablet 50 mg PO QPM tadalafil 5 mg tablet (Cialis) 5 mg PO QPM cyclobenzaprine 5 mg tablet 5 mg PO TID PRN muscle spasm atorvastatin 80 mg tablet 80 mg PO QPM Insulin Dependent Diabetic Patients * Test your blood sugar the morning of surgery. * If Blood Sugar is GREATER THAN 150, take HALF of your regular dose of: insulin glargine 100 unit/mL (3 mL) subcutaneous pen (Lantus Solostar U-100 Insulin) 15 - 16 unit subcut QAM * If Blood Sugar is LESS THAN 150, DO NOT TAKE ANY: insulin glargine 100 unit/mL (3 mL) subcutaneous pen (Lantus Solostar U-100 Insulin) 15 - 16 unit subcut QAM Other Notes If you have any questions please call us at [phone] or [phone] or [phone] or [phone]
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
[2024-06-11] MEDS: LACTATED RINGER'S 1,000 ML IV SCH ×2 (06:20→12:07)
[2024-06-11] MEDS: CLOPIDOGREL BISULFATE 75 MG TAB PO ONE (06:58)
[2024-06-11] MEDS ORDERED: fentaNYL citrate PF 100 MCG/2 ML VIAL IV PRN (07:03)
[2024-06-11] MEDS ORDERED: ONDANSETRON INJ 2 MG/ML 2 ML VIAL IV PRN (07:03)
[2024-06-11] MEDS ORDERED: ePHEDrine sulfate 50 MG/ML AMP IV PRN (07:03)
[2024-06-11] MEDS ORDERED: ATROPINE SULFATE 0.1 MG/ML 10ML SYR IV PRN (07:03)
[2024-06-11] MEDS ORDERED: fentaNYL citrate PF 100 MCG/2 ML VIAL ONE ×2 (07:19→08:41)
[2024-06-11] MEDS ORDERED: GLYCOPYRROLATE 0.2 MG/ML VIAL ONE ×2 (07:39→09:35)
[2024-06-11] MEDS ORDERED: ROCURONIUM BROMIDE 10 MG/ML 5 ML VIAL IV ONE (07:39)
[2024-06-11] MEDS ORDERED: DEXAMETHASONE SOD INJ 4 MG/ML VIAL ONE (07:39)
[2024-06-11] MEDS ORDERED: ONDANSETRON INJ 2 MG/ML 2 ML VIAL ONE (07:39)
[2024-06-11] MEDS ORDERED: LIDOCAINE 2% 20 MG/ML 5 ML SYR IV ONE (07:39)
[2024-06-11] MEDS ORDERED: PROPOFOL IV EMULSION 10 MG/ML 20 ML VIAL IV ONE (07:39)
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
[2024-06-11] MEDS: CLINDA 900 MG **Premixed Bag IV SCH (08:00)
[2024-06-11] MEDS ORDERED: HEPARIN SOD (PORCINE) 1000 UNIT/ML ONE (08:52)
[2024-06-11] MEDS ORDERED: ePHEDrine sulfate 50 MG/5 ML SYR ONE (08:52)
[2024-06-11] MEDS ORDERED: NITROGLYCERIN/D5W 100 MCG/ML BTL ONE (08:52)
[2024-06-11] MEDS: ceFAZolin 330 MG/ML 1 GM VIAL ONE (08:56)
[2024-06-11] MEDS ORDERED: PROTAMINE SULFATE 10 MG/ML 5 ML VIAL IV ONE (09:20)
[2024-06-11] MEDS ORDERED: LABETALOL HCL IV 5 MG/ML 20ML IV ONE (09:35)
[2024-06-11] MEDS ORDERED: NEOSTIGMINE METHYLSULFATE 1 MG/ML 10ML VIAL ONE (09:35)
[2024-06-11] MEDS: BUPIVACAINE/EPINEPHRINE 0.5% MPF 1:200,000 30 ML VIAL ONE (09:38)
[2024-06-11] MEDS: GELATIN SPONGE SZ 100 ONE (09:39)
[2024-06-11] MEDS: HEPARIN (PORCINE) 1000 UNIT/ML 10 ML (CATH LAB USE ONLY) ONE (09:39)
[2024-06-11] MEDS: THROMBIN FOR SOLN 20000 UNIT KIT ONE (09:40)
[2024-06-11] MEDS: LIDOCAINE 1% LOCAL 20 ML VIAL ONE (09:45)
--- NOTE | 2024-06-11 09:46 | Procedure Note ---
Angiogram Post Procedure Fluoroscopy Time (minutes): 3.3 Radiation (mGy): 17 Contrast: 15 Post Operative Report Pre & Post Diagnosis Operation Date: 06/11/24 08:00 Pre-Op Diagnosis: Right Carotid Artery Stenosis Post-Op Diagnosis: Right Carotid Artery Stenosis I identified the patient and participated in the time-out.: Yes Procedure Operation Date: 06/11/24 08:00 Actual Procedures p Right Transcarotid Artery Revascularization, Ultrasound left Femoral Vein(Ri ght) - Justin Henderson MD Surgeon Justin Henderson MD [employer] Ela,PAC Estimated Blood Loss 10 Findings Consistent with Post-Op Diagnosis Specimens none Anesthesia Type General Complications none Disposition Accompanied Patient To Recovery: No Indications This is a 68-year-old male who was found to have a severe stenosis of his right internal carotid artery. He has a left carotid endarterectomy done years ago which resulted in postoperative hoarseness and difficulty swallowing. He did recover from that. TCAR versus endarterectomy was recommended. He elected to go ahead with a TCAR. I have discussed the risks options and benefits of the procedure with the patient. The patient understands the risks options and benefits and agrees to the procedure. Description of Procedure The patient was taken to the operating room and placed in supine position. After general anesthesia was accomplished the groins and right side of the neck and chest were prepped and draped in a sterile manner. Timeout was performed and the patient was identified. A transverse incision was made just above the clavicle between the heads of the sternocleidomastoid. This was carried down to where the common carotid artery was identified. It was isolated and slung with an umbilical tape. A U-stitch of 5-0 Prolene was used in the area of the puncture. It was given 7000units of heparin at that time. Ultrasound was then used to localize the left common femoral vein. The vein was patent and compressed easily. Under ultrasound guidance the left common femoral vein was punctured and the venous sheath was inserted. This was aspirated and flushed with heparinized saline. An ACT at that time was 311. Using micropuncture technique the common carotid artery was punctured. The micro sheath was inserted to 2.5 cm. Injection was then done showing the bifurcation. There was a significant lesion just beyond the origin of the internal carotid artery on the right side and a severe stenosis in the mid internal carotid artery.. We reinserted the micro wire and passed it into the external carotid. We then advanced the dilator and sheath into the external carotid. The dilator and sheath were removed. We then inserted the J-wire into the external carotid artery. The TCAR sheath was inserted. Once it was in place and held against the artery it was sutured to the chest wall and the incision edge. We then flushed the tubing appropriately. The venous return tubing was clamped onto the TCAR sheath. It was flushed through and then attached to the venous inflow sheath in the left groin. The sheath was checked for flow. We then inserted a 4 x 35 balloon backloaded on the wire. The wire was passed through the lesion into the petrous portion of the internal carotid. The 4 balloon was then a dvanced to the lesion. The lesion was then predilated with the 4 mm balloon. The balloon was removed. We then inserted the 6 x 40 stent. This was deployed across the lesion without difficulty. The catheter was removed. The carotid was allowed to go 2 minutes with flow reversal. Completion angiogram was done at that time which showed no residual stenosis but again showed the lesion in the proximal internal just beyond the origin. We decided to stent this also. We inserted an 8/6 x 40 stent and deployed across this lesion. There is no residual stenosis noted on the completion angiogram. The angiogram was done after we let the backflow occur for a minute..The wire was removed we allowed 2 minutes of flow reversal to occur. A that point the common carotid artery was unclamped. The venous return tubing was clamped and removed from the TCAR sheath. The blood was allowed to flow back into the venous system. Once this was completed the sheath was pulled from the groin and pressure was applied. The TCAR sheath was then removed and the 5-0 Prolene suture securely tied. Hemostasis was noted of the puncture site. Wound was irrigated with saline solution. Adequate hemostasis was obtained of the wound. Once this was noted the wound was closed in usual fashion using a 3-0 Vicryl suture for the subcutaneous layer and a 4-0 subcuticular Vicryl suture for the skin edges. De rmabond was used for dressing.The patient left the operation room in satisfactory condition and tolerated the procedure well. All needle and sponge counts were correct at the end of the procedure. Linn Manuel Pac assisted due to lack of resident availability and was necessary for positioning, draping, retraction, wound closure deep layers, subcutaneous tissue, and skin closure and was necessary for assisting with the case. I attest to the content of the Intraoperative Record and any orders documented therein. Any exceptions are noted below.
[2024-06-11] MEDS: VISIPAQUE ONE (10:09)
[2024-06-11] MEDS ORDERED: PHARMACY GLYCEMIC MGMT CONSULT PRN (11:26)
[2024-06-11] MEDS ORDERED: CYCLOBENZAPRINE HCL 5 MG TAB PO PRN (11:26)
[2024-06-11] MEDS ORDERED: PHENYLEPHRINE/NSS 25 MG/250 ML BAG IV PRN (11:26)
[2024-06-11] MEDS ORDERED: NON-FORMULARY MEDICATION (Insulin Aspart U-100 [Novolog Flexpen U-100 Insulin] 100 unit/mL SQ SCH (11:26)
--- NOTE | 2024-06-11 11:45 | Anesthesiology Progress Note ---
Date of Service June 11, 2024 Anesthesia Post Procedure Vital Signs Vital Signs: Temp Pulse Pulse Pulse Resp BP BP 06/11/24 11:30 06/11/24 11:24 60 15 117/64 06/11/24 10:35 97.5 F L 57 L 16 115/58 L 06/11/24 10:25 66 18 140/71 06/11/24 10:15 60 17 112/57 L 06/11/24 10:09 96.8 F L 62 15 114/59 L 06/11/24 06:15 97.5 F L 76 20 149/72 H BP Pulse Ox O2 Del Method O2 Flow Rate 06/11/24 11:30 Nasal Cannula 2 06/11/24 11:24 94 2 06/11/24 10:35 115/48 L 99 Nasal Cannula 2 06/11/24 10:25 144/58 H 98 Nasal Cannula 2 06/11/24 10:15 109/46 L 98 Nasal Cannula 2 06/11/24 10:09 111/46 L 98 Oxymask 6 06/11/24 06:15 137/73 93 Room Air Pain Intensity Left Groin: Pain Intensity: 2 Transfer of Care Handoff Completed per policy Notes Mental Status: alert / awake / arousable and participated in evaluation Patient Amnestic to Procedure: Yes Nausea / Vomiting: adequately controlled Pain: adequately controlled Airway Patency, RR, SpO2: stable & adequate BP & HR: stable & adequate Hydration State: stable & adequate Anesthetic Complications: no major complications apparent and Pt Satisfied with anesthetic care
[2024-06-11] MEDS: STAT IV Infusion **Titration per Protocol STA (12:07)
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
[2024-06-11] MEDS ORDERED: GLUCOSE 40% GEL 15 GM TUBE PO PRN (13:15)
[2024-06-11] MEDS ORDERED: CARBOHYDRATES FOR HYPOGLYCEMIA PO PRN (13:15)
[2024-06-11] MEDS ORDERED: GLUCOSE 10 TAB/TUBE PO PRN (13:15)
[2024-06-11] MEDS ORDERED: DEXTROSE 50% 50 ML SYRINGE IV PRN (13:15)
[2024-06-11] MEDS ORDERED: GLUCAGON FOR INJ 1 MG VIAL IM PRN (13:15)
[2024-06-11] MEDS: INSULIN ASPART PER UNIT CHARGE SC SCH (13:52)
--- NOTE | 2024-06-11 14:55 | Pharmacy Report ---
Pharmacy Glycemic Short Note 2 - Date of Service June 11, 2024 - Glycemic Short BSG Results (Last 24 hours): 06/11/24 06/11/24 06/11/24 06:13 10:06 12:38 POC Glucose 104 H 168 H 136 H OUTPATIENT ANTIDIABETIC REGIMEN: * Novolog scale (correctional only) * Lantus 15-16 units daily (last dose 06/10) * A1c: 8.4% 05/28/24 ASSESSMENT: * Patient post op TCAR with reasonable BSGs (104-168-132 mg/dL). Patient was o rdered a diet post op. * Will proceed with moderate stress novolog and lantus scale. PLAN FOR INPATIENT GLYCEMIC CONTROL: * Hold outpatient oral diabetes medications * Basal insulin * Lantus 5 or 10 units SQ HS based on BSG- See MAR for details * Bolus insulin * NovoLog per scale ACHS or Q6hrs while NPO * Goal Range: Low 110 mg/dL - High 140 mg/dL * Correction Factor: 35 mg/dL/unit * Nutritional / Prandial insulin per carb ratio of 1 unit per 12 grams CHO consumed
[2024-06-11] MEDS: CLINDAMYCIN/D5W 600 MG/50 ML BAG IV SCH (15:41)
[2024-06-11] MEDS: CLOPIDOGREL BISULFATE 75 MG TAB PO SCH (20:52)
[2024-06-11] MEDS: LOSARTAN POTASSIUM 50 MG TAB PO SCH (20:52)
[2024-06-11] MEDS: amLODIPine BESYLATE 5 MG TAB PO SCH (20:52)
[2024-06-11] MEDS: ATORVASTATIN 40 MG TAB PO SCH (20:53)
[2024-06-11] MEDS: LANTUS PER UNIT CHARGE SC ONE (20:54)
[2024-06-11] MEDS: LATANOPROST 0.005% OP SOLN 2.5 ML BTL OP SCH (21:08)
[2024-06-12 00:15] VITALS: TEMP 98.2
[2024-06-12] MEDS: ASPIRIN 81 MG ECTAB PO SCH (07:48)
[2024-06-12] MEDS: UMECLIDINIUM/VILANTEROL 62.5/25MCG 7 PUFFS/INHALER INH SCH (07:48)
[2024-06-12] MEDS: PANTOprazole 40 MG TAB PO SCH (07:48)
[2024-06-12 09:29] VITALS: O2SAT 92
--- NOTE | 2024-06-12 12:56 | Surgery Progress Note ---
Date of Service June 12, 2024 Assessment & Plan (1) Stenosis of right carotid artery: Plan: This gentleman is postoperative day 1 from an uncomplicated TCAR. He is doing well and is ready for discharge. He has no neurological deficits. He will continue his Plavix statin and aspirin daily. Admission and Anticipated Discharge Date Admission Date: June 11, 2024 Subjective This patient has no complaints after TCAR. Physical Exam Constitutional: WD/WN, vitals as above Neck: trachea midline Respiratory: normal respiratory effort; no respiratory distress Cardiovascular: RRR, no murmur, no edema Skin: + incision (Minimal ecchymosis and swell ing is seen at the suture site.) Neurologic: CN's II-XI intact bilaterally and moves all extremities Results & Data Vital Signs (Past 12 Hours) Vital Signs Temp Pulse Resp BP Pulse Ox O2 Del Method O2 Flow Rate 06/12/24 09:33 73 27 H 92 06/12/24 09:03 72 26 H 92 06/12/24 08:03 101 H 23 92 06/12/24 08:00 73 06/12/24 07:30 Nasal Cannula 2 06/12/24 07:03 90 30 H 93 06/12/24 06:12 128 H 24 06/12/24 06:03 109 H 28 H 90 Nasal Cannula 1 06/12/24 06:00 120/62 06/12/24 06:00 120/62 06/12/24 06:00 120/62 06/12/24 06:00 120/62 06/12/24 05:54 64 23 93 06/12/24 05:33 68 18 92 Nasal Cannula 2 06/12/24 05:15 68 27 H 92 06/12/24 05:00 128/65 06/12/24 05:00 36.8 C 80 25 H 91 06/12/24 04:09 66 25 H 90 06/12/24 04:00 121/56 L 06/12/24 03:30 67 23 92 06/12/24 02:54 64 22 90 06/12/24 02:45 61 22 89 L Nasal Cannula 2 06/12/24 02:36 70 16 92 Nasal Cannula 2 06/12/24 02:06 61 21 87 L 06/12/24 02:00 129/60 06/12/24 02:00 129/60 08/14/24 02:00 129/60 06/12/24 01:57 62 22 88 L 06/12/24 01:48 79 15 90 06/12/24 01:03 63 20 90 06/12/24 01:00 116/57 L 06/12/24 01:00 116/57 L
--- NOTE | 2024-06-12 12:58 | Discharge Summary ---
Date of Service June 12, 2024 Admission HPI Per Admitting Provider I had the pleasure of seeing Jae today for follow-up. As you know he is a 68-year-old gentleman whose had a left carotid endarterectomy done in the past. He did have hoarseness and difficulty swallowing postop from his endarterectomy. He is now found to have a significant narrowing of his right internal carotid artery. He is asymptomatic at this time from his carotid. Admission Exam Per Admitting Provider Constitutional: WD/WN, vitals as above Neck: trachea midline Respiratory: normal respiratory effort, lungs clear to auscultation Cardiovascular: RRR, no murmur, no edema Extremities: normal capillary refill Gastrointestinal (Abdomen): normal bowel sounds, soft, nontender, no hepatosplenomegaly Neurologic: CN's II-XI intact bilaterally and moves all extremities Psychiatric: Orientation: alert and oriented x 3 Principal Diagnosis Right carotid stenosis Discharge Exam Constitutional WD/WN, vitals as above Neck trachea midline Respiratory normal respiratory effort, lungs clear to auscultation normal respiratory effort; no respiratory distress Cardiovascular RRR, no murmur, no edema Extremities: normal capillary refill Skin + incision (Minimal ecchymosis and swelling is seen at the suture site.) Neurologic CN's II-XI intact bilaterally and moves all extremities Psychiatric Orientation: alert and oriented x 3 Discharge Data Allergies Allergy/AdvReac Type Severity Reaction Status Date / Time Penicillins Allergy Unknown UNKNOWN-HAD Verified 06/11/24 06:12 CHILD empagliflozin AdvReac Severe yeast Verified 06/11/24 06:12 [From Jardiance] infection Consultations 06/11/24 11:26 Consult Surveillance 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 He is doing well and is ready for discharge. He has no neurological deficits. He will continue his Plavix statin and aspirin daily. Total Time Total Time Spent Total Time Spent (In Minutes): 0 Discharge Plan Discharge Items Patient Disposition: Home - Self-Care Reason For Visit: Right Carotid Artery Stenosis Discharge Diagnosis: Right carotid stenosis Activity: Per Instructions section Non-emergency contact: Surgeon Call non-emergency contact if: your temperature is above 101.5, your wound has increased redness, your wound has increased drainage and your wound pain has increased Follow-up/Referrals: Priti Shah DO [Primary Care Provider] - Diet: Carb Consistent or DM2 and Heart Healthy Addtl Attending Provider Instructions: SPECIAL CARE INSTRUCTIONS: Medications: * Continue to take Aspirin, plavix and statin as directed. Incision Care: * You may shower, but do not rub incision. You may let the warm soapy water run over it. Be sure to dry the incision well after bathing. * Do not shave directly over the incision until it is healed. * DO NOT IMMERSE THE INCISION IN A TUB/POOL/etc. UNTIL HEALED. Restrictions: * Do not drive for at least one week or if you are still taking any narcotic pain medication. * Do not lift anything heavier than a gallon of milk for one week after going home. Possible Complications: * Numbness - It is normal to have some numbness around the incision. Numbness can extend beyond the incision to areas of the neck, ear and face. The numbness is due to bruising of nerves during the surgery and will gradually improve over a period of months. * Hoarseness/Difficulty Speaking and Swallowing - The bruising of nerves in the neck can also cause a hoarse voice, difficulty speaking or swallowing. This may improve over time, HOWEVER, if it continues for more than a few days please contact our office ([phone]). * Excessive Swelling - There will be some swelling immediately after surgery which usually resolves within one week. If you notice that the swelling is getting worse, notify your surgeon ([phone]). * Drainage/Bleeding - If there is any drainage or bleeding, it should be a very small amount (less than a teaspoon per day). If you have excessive bleeding or drainage from the incision, call your surgeon ([phone]) right away. ACTIVATION OF EMERGENCY MEDICAL SYSTEM: Call 911, immediately, if you experience any of the following: Warning Signs and Symptoms of Stroke: * Sudden numbness or weakness of the face, arm or leg, especially on one side of the body * Sudden confusion, trouble speaking or understanding * Sudden trouble seeing in one or both eyes * Sudden trouble walking, dizziness, loss of balance or coordination * Sudden severe headache with no cause Do not delay calling 911 if you experience any warning signs or symptoms of a stroke. Delay in seeking medical attention may affect what treatments can be given to you. Risk Factors for Stroke: You can reduce your chances of stroke by working with your medical provider to adopt a healthy lifestyle. Some specific ways to lower your chance of stroke are: * If you are a smoker, now is the time to stop smoking cigarettes * If you are diabetic, improve the control of your blood sugars * Avoid excessive amounts of alcohol * Control high blood pressure * Lose weight if you are overweight * Be sure to lead an active lifestyle * Eat a healthy diet low in salt, cholesterol and fat You should know about other risk factors for stroke that you are unable to control. These include: * Age 55 years or older * Male gender * Certain racial groups: , or / * Family History of Stroke, Mini stroke or Heart Attack * Sickle Cell Disease You will be receiving a call from the Vascular Surgery Nurse after you are discharged. FOLLOW UP VISIT: It is important for you to keep your follow up appointments with your medical provider. Keep any scheduled doctor appointments. Call [phone] to schedule a follow up appointment if one not already scheduled. Pending Studies at Discharge: No Stand-Alone Forms: My [facility], Smoking Cessation Medications and DC Order Prescriptions: New oxycodone-acetaminophen [Percocet] 5-325 mg Tablet 1 tab PO Q6H PRN (Reason: pain) Qty: 10 0RF Continued (DME) insulin syringe-needle U-100 [[facility]ocate Syringes] 0.5 mL 31 gauge x 5/16" syringe See Rx Instructions .Route Qty: 100 5RF Rx Instructions: As directed BID w/ Novolin (DME) pen needle, diabetic [BD Ultra-Fine Belen Pen Needle] 32 gauge x 5/32" needle See Rx Instructions .Route Qty: 200 2RF Rx Instructions: 4 per day with insulin pens insulin aspart U-100 [Novolog FlexPen U-100 Insulin] 100 unit/mL (3 mL) insulin pen 1 sliding scale dose subcut USEASDIRECTD Qty: 15 2RF Rx Instructions: 160-180- 2 units, 181-210- 4 units, 211-240- 6 units, 241-270- 8 units, 271-300- 10 units, If BS >300- call office (DME) FreeStyle Que 3 [place] Misc See Rx Instructions .Route Qty: 1 0RF Rx Instructions: As directed atorvastatin 80 mg tablet 80 mg PO QPM Qty: 90 1RF Rx Instructions: TAKE 1 TABLET BY MOUTH EVERY DAY Anoro Ellipta 62.5-25 mcg/actuation blister with device 1 inh INH QAM Qty: 60 5RF cyclobenzaprine 5 mg tablet 5 mg PO TID PRN (Reason: muscle spasm) Qty: 20 0RF (DME) FreeStyle Que 3 Sensor Device See Rx Instructions .Route Qty: 2 1RF Rx Instructions: As directed- change every 14 days (DME) OneTouch Verio test strips Strip See Dose Instructions .ROUTE .MEDSUPPLY Qty: 100 2RF Dose Instruction: As directed Rx Instructions: TEST 3 TIMES DAILY (DME) lancets [OneTouch Delica Lancets] 33 gauge misc See Dose Instructions .ROUTE .MEDSUPPLY Qty: 100 Rx Instructions: Test 3 times daily latanoprost 0.005 % drops 1 drp ophthalmic (eye) HS losartan 50 mg tablet 50 mg PO QPM clopidogrel [Plavix] 75 mg tablet 75 mg PO QPM amlodipine 5 mg tablet 5 mg PO QPM aspirin [Adult Aspirin Regimen] 81 mg tablet,delayed release (DR/EC) 81 mg PO QAM tadalafil [Cialis] 5 mg tablet 5 mg PO QPM insulin glargine [Lantus Solostar U-100 Insulin] 100 unit/mL (3 mL) insulin pen 15 - 16 unit subcut QAM omeprazole 20 mg Tablet,Delayed Release (Dr/Ec) 20 mg PO QAM Discharge Orders: Discharge Order (Routine); Ordered 06/12/24 Ordered By: Justin Henderson Admission Data Admit Date/Time: 06/11/24 07:43 Attending Provider: Justin Henderson Admit Provider: Justin Henderson Primary Care Provider: Priti Shah Other Providers: Jony Mills; Misha Camacho; Ross Mcmillan; Macario Wright; Demetrius Hdz; Patricia Wagner; Justen Cadet; Cris Hernandez; Maryann Maldonado; Inder Bueno; Yogi Fowler; Venecia Almendarez
[2024-06-12 13:17] VITALS: BP 115/58; PULSE 76; RESP 20
[2024-06-12] MEDS: oxyCODONE/ACETAMINOPHEN 5mg/325mg TAB PO PRN (13:34)
[2024-06-12] MEDS ORDERED: LANTUS PER UNIT CHARGE SC SCH (21:00)
== END 2024-06-12 14:13 | disposition home or self-care (01) | DRG 36 ==
LOC: ASU 05:49 → 1E 07:43
PROC: EV.TCAR (2024-06-11 08:00)
DX: Z86.73 Personal history of transient ischemic attack (TIA), and cerebral infarction without residual deficits; E78.5 Hyperlipidemia, unspecified; F17.210 Nicotine dependence, cigarettes, uncomplicated; Z88.0 Allergy status to penicillin; Z00.6 Encounter for examination for normal comparison and control in clinical research program; N40.0 Benign prostatic hyperplasia without lower urinary tract symptoms; E11.9 Type 2 diabetes mellitus without complications; I65.21 Occlusion and stenosis of right carotid artery; Z88.8 Allergy status to other drugs, medicaments and biological substances; I10 Essential (primary) hypertension; Z79.82 Long term (current) use of aspirin; Z79.4 Long term (current) use of insulin; H91.90 Unspecified hearing loss, unspecified ear; J44.9 Chronic obstructive pulmonary disease, unspecified; Z79.899 Other long term (current) drug therapy

== ENCOUNTER 2024-09-09 21:14 | Inpatient (IN) ==
[2024-09-09 22:39] LABS: Base Excess VBG 4.9 mEq/L; HCO3 VBG 33 mmol/L; Oxygen Saturation VBG < 60.0 %; PCO2 VBG 62 mmHg (38-50); PO2 VBG 33 mmHg; pH VBG 7.33 (7.36-7.41)
[2024-09-09 22:50] LABS: Basophils # (auto) 0.07 K/uL (0.00-0.20); Basophils % (auto) 0.5 %; Eosinophils # (auto) 0.67 K/uL (0.00-0.50); Eosinophils % (auto) 5.1 %; Hematocrit (blood only) 35.3 % (42.0-52.0); Immature Granulocytes # (auto) 0.04 K/uL (0.01-0.20); Immature Granulocytes % (auto) 0.3 %; Lymphocytes # (auto) 1.02 K/uL (1.20-3.40); Lymphocytes % (auto) 7.8 %; Mean Corpuscular Hemoglobin 27.4 pg (25.0-34.0); Mean Corpuscular Hgb Conc 31.2 g/dL (32.0-36.0); Mean Platelet Volume 8.8 fL (9.4-12.4); Monocytes # (auto) 0.59 K/uL (0.11-0.59); Monocytes % (auto) 4.5 %; Neutrophils # (auto) 10.74 K/uL (1.40-6.50); Neutrophils % (auto) 81.8 %; Platelet Count 339 K/uL (130-400); RDW Coefficient of Variation 13.5 % (11.5-14.5); RDW Standard Deviation 43.8 fL (36.4-46.3); Red Blood Count 4.01 M/uL (4.70-6.10); White Blood Count 13.13 K/ul (4.8-10.8)
[2024-09-09 22:51] LABS: Appearance Urine Clear (Clear); Bacteria Urine Automated None Seen (None Seen); Bilirubin Urine Negative (Negative); Blood Urine Trace (Negative); Cast Urine Automated 0-2 /lpf (0-2); Color Urine Yellow; Epithelial Cell Urine Auto 0-2 /hpf (0-2); Glucose Urine UA 2+ (Negative); Ketones Urine Negative (Negative); Leukocyte Esterase Urine Negative (Negative); Nitrite Urine Negative (Negative); Protein Urine 1+ (Negative); RBC Urine Automated 0-2 /hpf (0-2); Specific Gravity Urine 1.012 (1.000-1.030); Urobilinogen Urine Negative (Negative); WBC Urine Automated 0-5 /hpf (0-5); pH Urine 6.5 (4.5-7.5)
[2024-09-09 23:01] LABS: Albumin Globulin Ratio 1.5 (0.9-2); Albumin Level 3.6 gm/dl (3.4-5.0); BUN Creatinine Ratio 12.9 (10-20); Bilirubin,Total 0.2 mg/dl (0.2-1.0); Calcium 8.5 mg/dl (8.6-10.3); Creatinine Clr Calc Pharmacy 60.8 ml/min; Globulin 2.4 gm/dl (2.5-4.0); Magnesium 1.2 mg/dl (1.7-2.4); Potassium 3.5 mmol/L (3.5-5.1)
[2024-09-09 23:08] LABS: Troponin I High Sensitivity 33.2 pg/ml (0-20)
[2024-09-09 23:17] LABS: Thyroid Stimulating Hormone 2.63 uIu/ml (0.300-4.500)
--- NOTE | 2024-09-09 23:18 | Emergency Department Note ---
History of Present Illness General Chief complaint: Trauma Stated complaint: FOUND ON FLOOR - RESPONSIVE NOW, BLOOD THINNERS Time Seen by Provider: 09/09/24 21:27 History of Present Illness This 69-year-old male presents the ER for syncopal episode. Patient states he took his pills and felt like 1 went down the wrong hole started coughing and then collapsed. Family was concerned and brought him in. Patient was hypoxic on room air per EMS. Patient was 88% on room air and was placed on oxygen. He does have COPD. He does not normally wear oxygen. Patient denies chest pain, dyspnea, abdominal pain, vomiting, diarrhea, flulike illness. Patient states he was fine until he took his medicine and felt like 1 went down the wrong hole and had his coughing fit and collapsed. Unknown LOC. Home Medications Medication Instructions Recorded Confirmed Type latanoprost 0.005 % eye drops 1 drp ophthalmic (eye) HS 12/30/22 09/10/24 History insulin syringe-needle U-100 0.5 #100 ea 10/19/23 09/10/24 Rx mL 31 gauge x 5/16" ([facility]ocate Syringes) pen needle, diabetic 32 gauge x #200 ea 01/10/24 09/10/24 Rx 5/32" (BD Ultra-Fine Belen Pen Needle) blood-glucose meter,continuous #1 ea 01/31/24 09/10/24 Rx (FreeStyle Que 3 Elkins) cyclobenzaprine 5 mg tablet 5 mg PO TID PRN muscle spasm #20 04/29/24 09/10/24 Rx tabs amlodipine 5 mg tablet 5 mg PO QPM 05/23/24 09/10/24 History blood sugar diagnostic (OneTouch #100 ea 05/24/24 09/10/24 Rx Verio test strips) oxycodone-acetaminophen 5 mg-325 1 tab PO Q6H PRN pain #10 tabs 06/12/24 09/10/24 Rx mg tablet (Percocet) blood-glucose sensor (FreeStyle #2 ea 06/26/24 09/10/24 Rx Que 3 Sensor device) atorvastatin 80 mg tablet 80 mg PO QPM #90 tabs 07/19/24 09/10/24 Rx clopidogrel 75 mg tablet (Plavix) 75 mg PO QPM #90 tabs 08/01/24 09/10/24 Rx insulin aspart U-100 100 unit/mL 1 sliding scale dose subcut 08/01/24 09/10/24 Rx (3 mL) subcutaneous pen (Novolog USEASDIRECTD #15 mL FlexPen U-100 Insulin aspart) insulin glargine 100 unit/mL (3 15 - 16 unit (0.15 - 0.16 mL) 08/01/24 09/10/24 Rx mL) subcutaneous pen (Lantus subcut QAM #15 mL Solostar U-100 Insulin) losartan 50 mg tablet 50 mg PO QPM #90 tabs 08/01/24 09/10/24 Rx ferrous sulfate 325 mg (65 mg 325 mg PO BID #60 tabs 08/19/24 09/10/24 Rx iron) tablet aspirin 81 mg tablet,delayed 81 mg PO DAILY 09/10/24 09/10/24 History release insulin glargine 100 unit/mL (3 14 unit subcut DAILY 09/10/24 09/10/24 History mL) subcutaneous pen (Lantus Solostar U-100 Insulin) umeclidinium 62.5 mcg-vilanterol 1 inh inhalation DAILY 09/10/24 09/10/24 History 25 mcg/actuation powdr for inhalation (Anoro Ellipta) Allergies Allergy/AdvReac Type Severity Reaction Status Date / Time Penicillins Allergy Unknown UNKNOWN-HAD Verified 08/13/24 13:53 CHILD empagliflozin AdvReac Severe yeast Verified 08/13/24 13:53 [From Jardiance] infection Past Med/Surg History Problem List (Updated 09/10/24 @ 03:20 by Catia Mistry MD) Elevated troponin Transaminitis COPD exacerbation Aspiration pneumonia (Acute) Hypoxemia (Acute) Hypomagnesemia (Acute) Syncope (Acute) Central retinal vein occlusion, right eye Stenosis of right carotid artery Glaucoma Cerebral vascular disease Erectile dysfunction BPH (benign prostatic hyperplasia) History of Hodgkin's lymphoma (~1987) In remission COPD (chronic obstructive pulmonary disease) Dysarthria, post-stroke Bilateral carotid artery stenosis s/p left CEA (2018) Vitamin D deficiency Tobacco abuse Dyslipidemia Essential hypertension Type 2 diabetes mellitus Schatzki's ring Vocal fold paralysis, left s/p L CEA; pt saw 06/18/18 for this dx History of stroke x 2: 2014, 2017; no current weakness problems following the strokes. memory loss. GERD (gastroesophageal reflux disease) TIA (transient ischemic attack) (~07/2017) Medical History Potential difficult airway on pre-intubation assessment Dysphagia Hyperlipidemia Hypertension BPH (benign prostatic hyperplasia) Glaucoma History of pneumonia Vocal fold paralysis, left Diabetes mellitus, type 2 Hx of transient ischemic attack (TIA) (07/2017) Schatzki's ring History of stroke Hx of Hodgkins lymphoma (1987) GERD (gastroesophageal reflux disease) Chronic obstructive pulmonary disease Memory loss or impairment Dysesthesia Chronic cerebral ischemia Zenkers diverticulum Cricopharyngeal hypertrophy Hiatal hernia Surgical History History of transcarotid artery revascularization (TCAR) (05/2024) H/O myringotomy S/P ORIF (open reduction internal fixation) fracture (11/22/19) Left leg injury (~1969) History of arthroscopy History of herniorrhaphy History of carotid endarterectomy (05/29/18) History of esophagogastroduodenoscopy (EGD) (02/2018) Family History Other Alzheimer disease Aneurysm No family history of adverse response to anesthesia Denies family history of Ovarian cancer Prostate cancer Myocardial infarction Breast cancer Colorectal cancer Social History Smoking Status: Current some day smoker Tobacco Type: Cigarettes Age Started Using Tobacco: 16; packs per day: 0.5; Cigarettes Per Day: 10 (advised on policy); Second Hand Exposure: No; Do You Dip or Chew Tobacco: No; Hx Alcohol Use: No Hx Substance Use: No Preferred Language: Irish Communication Ability: Effective Visual Impairment: No Limitations Hearing Ability: Hard of Hearing Art Class Model Required: No Beliefs That Will Affect Care: None marital status: marital status details: engaged Current Living Situation: Significant Other Current Living Situation Comment: lives with girlfriend current occupational status: retired How many Children do You have: 2 Other Information That Helps Us Care for You: No Feels Safe at Home: Yes Diet: regular Diet Comment: regular caffeine: Yes during the past year weight has: remained stable Dental Care, Regularly: No Physical Activity Frequency: Daily Seatbelt Use: always Sunscreen Use: No Assistive Devices: Denture - Upper, Denture - Lower, Glasses, Hearing Aid - Bilateral and Hospital Bed Review of Systems A total of 10 systems reviewed and were otherwise negative Physical Exam Vital Signs Vital Signs - 24 hr 09/09/24 21:06 09/09/24 21:25 09/09/24 21:26 Temperature 36.4 C L 36.4 C L Temperature Source Oral Pulse Rate 93 H 93 H 88 Pulse Rate [Right Finger] Pulse Rhythm Regular Pulse Rhythm [Right Finger] Pulse Strength Normal Pulse Strength [Right Finger] Respiratory Rate 17 21 Respiratory Effort / Characteristics Non-Labored Respiratory Depth Normal Respiratory Pattern Regular Blood Pressure 137/88 137/88 Blood Pressure [Left Arm] Blood Pressure Mean 104 Blood Pressure Mean [Left Arm] Blood Pressure Position Lying Blood Pressure Position [Left Arm] Pulse Oximetry 90 97 Oxygen Delivery Method Nasal Cannula Nasal Cannula Oxygen Flow Rate 6 6 Sepsis Recent Fever Within 48 Hours No Sepsis New/Unexplained Change in Mental Status No Sepsis Action Taken by Nursing No Action Required 09/09/24 21:26 09/09/24 21:26 09/09/24 21:29 Temperature Temperature Source Pulse Rate 86 Pulse Rate [Right Finger] 85 Pulse Rhythm Regular Pulse Rhythm [Right Finger] Regular Pulse Strength Pulse Strength [Right Finger] Normal Respiratory Rate 24 23 Respiratory Effort / Characteristics Non-Labored Respiratory Depth Normal Respiratory Pattern Regular Blood Pressure Blood Pressure [Left Arm] 137/88 Blood Pressure Mean Blood Pressure Mean [Left Arm] 104 Blood Pressure Position Blood Pressure Position [Left Arm] Lying Pulse Oximetry 98 95 Oxygen Delivery Method Nasal Cannula Room Air Nasal Cannula Oxygen Flow Rate 4 2 Sepsis Recent Fever Within 48 Hours Sepsis New/Unexplained Change in Mental Status Sepsis Action Taken by Nursing 09/09/24 23:09 09/10/24 01:00 09/10/24 01:20 Temperature Temperature Source Pulse Rate 78 Pulse Rate [Right Finger] 92 H 76 Pulse Rhythm Pulse Rhythm [Right Finger] Pulse Strength Pulse Strength [Right Finger] Respiratory Rate 18 18 Respiratory Effort / Characteristics Non-Labored Respiratory Depth Normal Respiratory Pattern Regular Blood Pressure Blood Pressure [Left Arm] 135/71 142/78 H Blood Pressure Mean Blood Pressure Mean [Left Arm] 92 99 Blood Pressure Position Blood Pressure Position [Left Arm] Lying Pulse Oximetry 93 94 Oxygen Delivery Method Nasal Cannula Nasal Cannula Oxygen Flow Rate 2 2 Sepsis Recent Fever Within 48 Hours Sepsis New/Unexplained Change in Mental Status Sepsis Action Taken by Nursing VITALS: Vitals are noted on the nurse's note and reviewed by myself. Vital signs hypoxic on room air and improved with nasal cannula GENERAL: Pleasant patient, in no acute distress, nondiaphoretic, well-developed well-nourished. SKIN: The skin was without rashes, erythema, edema, or bruising. There is no tenting of the skin. Capillary reflex less than 2 seconds. HEAD: Normocephalic atraumatic. EARS: External auditory canals clear EYES: Pupils equal round and reactive to light and accommodation. Conjunctivae without injection, sclerae without icterus. Extraocular movements intact. NOSE: Patent, no discharge. MOUTH: Mucous membranes moist. Pharynx without erythema or exudate. Uvula midline. Airway patent. Tongue does not deviate. NECK: Supple without nuchal rigidity. No lymphadenopathy. No thyromegaly. Cervical spine is nontender. No JVD. HEART: Regular rate and rhythm LUNGS: Clear to auscultation bilaterally without wheezes, rales or rhonchi. No retractions or accessory muscle use. ABDOMEN: Positive bowel sounds x 4. Normal tympanic percussion. Soft, nontender, without masses or organomegaly. Barone sign negative. No guarding or rebound tenderness. No CVA tenderness MUSCULOSKELETAL: No muscle atrophy, erythema, or edema noted. NEURO: Patient was alert and oriented to person place and time. Normal sensation to light and sharp touch. No focal neurological deficits. Course Administered Medications Insulin Aspart (Insulin Aspart Per Unit Charge) 0 units SC Q6 DB Stop: 10/10/24 05:59 Last Admin: 09/10/24 06:15 Dose: 3 units Documented By: VENKAT Co-signed By: DAVID Discontinued Medications Albuterol (Albut/Ipratrop 3mg/0.5mg Neb 3 Ml Vial) 3 ml NEB NOW STA; Protocol Stop: 09/10/24 02:54 Last Admin: 09/10/24 03:33 Dose: Not Given Documented By: RUMA Albuterol (Albut/Ipratrop 3mg/0.5mg Neb 3 Ml Vial) 3 ml NEB NOW STA; Protocol Stop: 09/10/24 03:21 Last Admin: 09/10/24 03:38 Dose: 3 ml Documented By: RUMA Magnesium Sulfate/Dextrose (Magnesium Sulfate / D5w) 1 gm in 100 mls @ 200 mls/hr IV Q30M [facility] Stop: 09/10/24 00:17 Last Infusion: 09/10/24 01:36 Dose: Infused Documented By: Admin: 09/10/24 01:00 Dose: 200 mls/hr Documented By: Infusion: 09/10/24 00:59 Dose: Infused Documented By: Admin: 09/10/24 00:29 Dose: 200 mls/hr Documented By: DUNCAN Cefepime HCl (Maxipime 2000mg) 2,000 mg in 20 mls @ 5 mls/min IV NOW STA; Protocol Stop: 09/09/24 23:31 Last Admin: 09/10/24 01:13 Dose: Not Given Documented By: DUNCAN Ceftriaxone Sodium (Rocephin) 1,000 mg in 50 mls @ 100 mls/hr IV NOW STA Stop: 09/09/24 23:59 Last Infusion: 09/10/24 01:01 Dose: Infused Documented By: Admin: 09/10/24 00:45 Dose: 100 mls/hr Documented By: DUNCAN Metronidazole (Flagyl) 500 mg in 100 mls @ 100 mls/hr IV NOW STA; Protocol Stop: 09/10/24 00:29 Last Infusion: 09/10/24 02:10 Dose: Infused Documented By: Admin: 09/10/24 01:05 Dose: 100 mls/hr Documented By: DUNCAN Azithromycin 500 mg/ Dextrose 255 mls @ 127.5 mls/hr IV NOW STA; Protocol Stop: 09/10/24 05:19 Last Infusion: 09/10/24 06:31 Dose: Infused Documented By: Admin: 09/10/24 04:27 Dose: 127.5 mls/hr Documented By: VENKAT Ioversol (Optiray 320 125ml) 87 ml IV ONCE ONE Stop: 09/10/24 00:08 Last Admin: 09/10/24 00:08 Dose: 87 ml Documented By: JACKIE Methylprednisolone (Methylprednisolone 125 Mg/2 Ml Vial) 60 mg IV NOW STA Stop: 09/10/24 03:21 Last Admin: 09/10/24 03:38 Dose: 60 mg Documented By: [facility] Medical Decision Making Medical Records Attestation: I reviewed the patient's medical records. Home Medications Current Medication List: was personally reviewed by me Laboratory Data Attestation: I reviewed the patient's lab results. 09/09/24 22:30 09/09/24 22:31 Lab Results 09/09/24 09/09/24 09/09/24 Range/Units 22:14 22:30 22:31 WBC 13.13 H (4.8-10.8) K/ul RBC 4.01 L (4.70-6.10) M/uL Hgb 11.0 L (14.0-18.0) g/dl Hct 35.3 L (42.0-52.0) % MCV 88.0 (80.0-100.0) fL MCH 27.4 (25.0-34.0) pg MCHC 31.2 L (32.0-36.0) g/dL RDW Std Deviation 43.8 (36.4-46.3) fL RDW Coeff of Javier 13.5 (11.5-14.5) % Plt Count 339 (130-400) K/uL MPV 8.8 L (9.4-12.4) fL Immature Gran % (Auto) 0.3 % Neut % (Auto) 81.8 % Lymph % (Auto) 7.8 % Travis % (Auto) 4.5 % Eos % (Auto) 5.1 % Baso % (Auto) 0.5 % Neut # (Auto) 10.74 H (1.40-6.50) K/uL Lymph # (Auto) 1.02 L (1.20-3.40) K/uL Travis # (Auto) 0.59 (0.11-0.59) K/uL Eos # (Auto) 0.67 H (0.00-0.50) K/uL Baso # (Auto) 0.07 (0.00-0.20) K/uL Immature Gran # (Auto) 0.04 (0.01-0.20) K/uL VBG pH 7.33 L (7.36-7.41) VBG pCO2 62 H (38-50) mmHg VBG pO2 33 mmHg VBG HCO3 33 mmol/L VBG O2 Saturation < 60.0 % VBG Base Excess 4.9 mEq/L Sodium 140 (136-145) mmol/L Potassium 3.5 (3.5-5.1) mmol/L Chloride 101 (98-107) mmol/L Carbon Dioxide 32 (21-32) mmol/L Anion Gap 7 (3-11) BUN 12 (6-23) mg/dl Creatinine 0.93 (0.6-1.4) mg/dl Est Cr Clr Drug Dosing 60.8 ml/min eGFR 87.79 BUN/Creatinine Ratio 12.9 (10-20) Glucose 211 H (70-99(Fasting)) mg/dl Calcium 8.5 L (8.6-10.3) mg/dl Magnesium 1.2 L (1.7-2.4) mg/dl Total Bilirubin 0.2 (0.2-1.0) mg/dl AST 122 H (13-39) U/L ALT 74 H (7-52) U/L Alkaline Phosphatase 116 H (34-104) U/L Total Creatine Kinase 77 (30-223) U/L Troponin I High Sens 33.2 H (0-20) pg/ml B-Natriuretic Peptide 94 (0-100) pg/ml Total Protein 6.0 (6.0-8.3) gm/dl Albumin 3.6 (3.4-5.0) gm/dl Globulin 2.4 L (2.5-4.0) gm/dl Albumin/Globulin Ratio 1.5 (0.9-2) TSH 2.630 (0.300-4.500) uIu/ml Urine Color Urine Appearance (Clear) Urine pH (4.5-7.5) Ur Specific Sevier (1.000-1.030) Urine Protein (Negative) Urine Glucose (UA) (Negative) Urine Ketones (Negative) Urine Blood (Negative) Urine Nitrite (Negative) Urine Bilirubin (Negative) Urine Urobilinogen (Negative) Ur Leukocyte Esterase (Negative) Urine WBC (Auto) (0-5) /hpf Urine RBC (Auto) (0-2) /hpf U Hyaline Cast (Auto) (0-2) /lpf U Epithel Cells (Auto) (0-2) /hpf Urine Bacteria (Auto) (None Seen) Adenovirus (PCR) Not Detected (NotDetected) B. pertussis DNA (PCR) Not Detected (NotDetected) B.parapertussis DNA PCR Not Detected (NotDetected) C. pneumoniae DNA (PCR) Not Detected (NotDetected) Coronavirus OC43 (PCR) Not Detected (NotDetected) Coronavirus HKU1 (PCR) Not Detected (NotDetected) Coronavirus 229E (PCR) Not Detected (NotDetected) SARS-CoV-2 (PCR) Not Detected (NotDetected) Coronavirus NL63 (PCR) Not Detected (NotDetected) Human Metapneumovir PCR Not Detected (NotDetected) Influenza Type A (PCR) Not Detected (NotDetected) Influenza Type B (PCR) Not Detected (NotDetected) M. pneumoniae (PCR) Not Detected (NotDetected) Parainfluenza 1 (PCR) Not Detected (NotDetected) Parainfluenza 2 (PCR) Not Detected (NotDetected) Parainfluenza 3 (PCR) Not Detected (NotDetected) Parainfluenza 4 (PCR) Not Detected (NotDetected) RSV (PCR) Not Detected (NotDetected) Entero/Rhino (PCR) Not Detected (NotDetected) 09/09/24 09/10/24 Range/Units 22:35 00:25 WBC (4.8-10.8) K/ul RBC (4.70-6.10) M/uL Hgb (14.0-18.0) g/dl Hct (42.0-52.0) % MCV (80.0-100.0) fL MCH (25.0-34.0) pg MCHC (32.0-36.0) g/dL RDW Std Deviation (36.4-46.3) fL RDW Coeff of Javier (11.5-14.5) % Plt Count (130-400) K/uL MPV (9.4-12.4) fL Immature Gran % (Auto) % Neut % (Auto) % Lymph % (Auto) % Travis % (Auto) % Eos % (Auto) % Baso % (Auto) % Neut # (Auto) (1.40-6.50) K/uL Lymph # (Auto) (1.20-3.40) K/uL Travis # (Auto) (0.11-0.59) K/uL Eos # (Auto) (0.00-0.50) K/uL Baso # (Auto) (0.00-0.20) K/uL Immature Gran # (Auto) (0.01-0.20) K/uL VBG pH (7.36-7.41) VBG pCO2 (38-50) mmHg VBG pO2 mmHg VBG HCO3 mmol/L VBG O2 Saturation % VBG Base Excess mEq/L Sodium (136-145) mmol/L Potassium (3.5-5.1) mmol/L Chloride (98-107) mmol/L Carbon Dioxide (21-32) mmol/L Anion Gap (3-11) BUN (6-23) mg/dl Creatinine (0.6-1.4) mg/dl Est Cr Clr Drug Dosing ml/min eGFR BUN/Creatinine Ratio (10-20) Glucose (70-99(Fasting)) mg/dl Calcium (8.6-10.3) mg/dl Magnesium (1.7-2.4) mg/dl Total Bilirubin (0.2-1.0) mg/dl AST (13-39) U/L ALT (7-52) U/L Alkaline Phosphatase (34-104) U/L Total Creatine Kinase (30-223) U/L Troponin I High Sens 44.6 H D (0-20) pg/ml B-Natriuretic Peptide (0-100) pg/ml Total Protein (6.0-8.3) gm/dl Albumin (3.4-5.0) gm/dl Globulin (2.5-4.0) gm/dl Albumin/Globulin Ratio (0.9-2) TSH (0.300-4.500) uIu/ml Urine Color Yellow Urine Appearance Clear (Clear) Urine pH 6.5 (4.5-7.5) Ur Specific Sevier 1.012 (1.000-1.030) Urine Protein 1+ H (Negative) Urine Glucose (UA) 2+ H (Negative) Urine Ketones Negative (Negative) Urine Blood Trace H (Negative) Urine Nitrite Negative (Negative) Urine Bilirubin Negative (Negative) Urine Urobilinogen Negative (Negative) Ur Leukocyte Esterase Negative (Negative) Urine WBC (Auto) 0-5 (0-5) /hpf Urine RBC (Auto) 0-2 (0-2) /hpf U Hyaline Cast (Auto) 0-2 (0-2) /lpf U Epithel Cells (Auto) 0-2 (0-2) /hpf Urine Bacteria (Auto) None Seen (None Seen) Adenovirus (PCR) (NotDetected) B. pertussis DNA (PCR) (NotDetected) B.parapertussis DNA PCR (NotDetected) C. pneumoniae DNA (PCR) (NotDetected) Coronavirus OC43 (PCR) (NotDetected) Coronavirus HKU1 (PCR) (NotDetected) Coronavirus 229E (PCR) (NotDetected) SARS-CoV-2 (PCR) (NotDetected) Coronavirus NL63 (PCR) (NotDetected) Human Metapneumovir PCR (NotDetected) Influenza Type A (PCR) (NotDetected) Influenza Type B (PCR) (NotDetected) M. pneumoniae (PCR) (NotDetected) Parainfluenza 1 (PCR) (NotDetected) Parainfluenza 2 (PCR) (NotDetected) Parainfluenza 3 (PCR) (NotDetected) Parainfluenza 4 (PCR) (NotDetected) RSV (PCR) (NotDetected) Entero/Rhino (PCR) (NotDetected) Imaging Data Attestation: I personally reviewed and interpreted this imaging study as follows: Radiologist's Impression: Chest X-Ray 09/09/24 21:29 Exam(s): XR CXR 1 VIEW EXAM: XR Chest, 1 View CLINICAL HISTORY: Reason for exam: weakness. TECHNIQUE: Frontal view of the chest. COMPARISON: Chest x-ray 05/28/2024 FINDINGS: Lungs: No consolidation. No overt edema. Pleural space: No pleural effusion. No pneumothorax. Heart: Unremarkable. No cardiomegaly. IMPRESSION: No acute cardiopulmonary abnormality. Electronically signed by: David Nair MD 09/10/24 00:[address] 09/09/24 21:29 Exam(s): CT HEAD Without Contrast EXAM: CT Head Without Intravenous Contrast CLINICAL HISTORY: Reason for exam: ams. TECHNIQUE: Axial computed tomography images of the head/brain without intravenous contrast. CTDI is 62.75 mGy and DLP is 961.59 mGy-cm. Automated exposure control was utilized for the study. A dose lowering technique was utilized adhering to the principles of ALARA. COMPARISON: Prior brain MRI from February 16, 2019. FINDINGS: Study is limited secondary to motion artifact. Brain: Remote ischemic injury of the bilateral frontal, left temporal and parietal lobes with encephalomalacia and gliosis. Hepatic injury of the right eloy. Remote ischemic injuries of the bilateral cerebellar lobes. No hemorrhage. Moderate nonspecific white matter changes.. No edema. Ventricles: Unremarkable. No ventriculomegaly. Bones/joints: Unremarkable. No acute fracture. Soft tissues: Unremarkable. Sinuses: Unremarkable as visualized. No acute sinusitis. Mastoid air cells: Right mastoid effusion. No mastoid effusion. IMPRESSION: No evidence of acute intracranial Pathology. Electronically signed by: Jennifer Mcmahon MD 09/09/24 23:55 PM Chest CTA 09/09/24 23:19 EXAM: CT angio chest PE protocol CLINICAL HISTORY: Patient was coughing and could not stop. Patient reports he took his medication and began to cough. Someone else in home found patient on the ground unresponsive. Pt hypostensive upon EMS arrival with 80% on Room Air. Patient on 4L NC. 78% on Room air upon arrival. 87 ml opti 320 PW TECHNIQUE: Contiguous axial images were obtained from the neck base through the upper abdomen following intravenous administration of iodinated contrast material. Angiographic images were processed, 3D MIP images were acquired for interpretation. If IV contrast material had not been administered, the likelihood of detecting abnormalities relevant to the patient's condition would have been substantially decreased. Coronal and sagittal 3-D MIPs were likewise performed and indicated to increase the sensitivity of detecting diffuse clinically relevant pathology. CT scan was performed according to ALARA (as low as reasonably achievable). COMPARISON: 20 February 2024. FINDINGS: Adequate contrast bolus without evidence of pulmonary embolism. Multiple branching as well as non-branching centrilobular ground-glass and sub solid nodules are noted involving bilateral lung parenchyma, predominantly along the lower aspects. Multiple centriacinar emphysematous changes are noted involving bilateral upper lobe and superior segments of bilateral lower lobes. Resultant hyperinflation of bilateral lung parenchyma is seen. Plate atelectasis is noted in the inferior lingula and right middle lobe. No pleural effusion. No pericardial effusion is identified. The central airways are patent. The heart, aorta, and pulmonary arteries are of normal size and configuration. Atherosclerotic calcifications are noted involving aortic root , aorta and its branches, coronary arteries. No mediastinal, hilar, or axillary lymphadenopathy is noted. The visualized portion of the thyroid is unremarkable. No suspicious lytic or sclerotic osseous lesions are identified. Degenerative changes are noted in the visualized spine. Rest of the findings are unchanged compared to the previous CT scan. IMPRESSION: 1. No evidence of pulmonary embolism. 2. Multiple branching as well as non-branching centrilobular ground-glass and sub solid nodules are noted involving bilateral lung parenchyma, predominantly along the lower aspects. Findings suggestive of infective etiology, possibly atypical/viral pneumonia. Suggested clinical/lab correlation. Most of these are new findings with progression of the previously seen findings. 3. Unchanged multiple centriacinar emphysematous changes are noted involving bilateral upper lobe and superior segments of bilateral lower lobes. Resultant hyperinflation of bilateral lung parenchyma is seen. 4. Unchanged plate atelectasis is noted in the inferior lingula and right middle lobe. Rest of the findings are unchanged compared to the previous CT scan. Electronically signed by Magdaleno Wren 09-10-2024 01:39 AM MDM Narrative Prior records/ancillary studies reviewed. Triage Nursing notes reviewed. Additional history obtained from family. The patient's history was concerning for syncope. Differential diagnosis: Etiologies such as vasovagal event, infection, hypoglycemia, electrolyte abnormalities, cardiac sources, intracerebral event, toxicologic, neurologic, as well as others were entertained. Physical examination: As above ER treatment provided: Nasal cannula, magnesium On reassessment the patient felt better. Rocephin and Flagyl were given for possible aspiration pneumonia as patient has a penicillin allergy An order was placed for continuous cardiac monitoring. The monitor shows a rate of 60-100 with a sinus rhythm per my interpretation. Diagnostics interpretation by me: ECG: ordered for syncope ECG: Poor baseline, normal sinus, right axis, Q waves in inferior leads, no acute ST or T wave changes, rate of 89. Impression normal sinus rhythm right axis Q waves inferior leads independently interpreted by myself The labs Independently Interpreted by myself revealed slightly elevated troponin repeat was ordered. Low magnesium and this was replaced ABG was reviewed neg biofire Imaging studies: Imaging was reviewed and read by radiology as above Consultation: A consultation was placed with the hospitalist. The case was discussed and diagnostics were reviewed. The patient was evaluated in the ER for further treatment. This appears to be consistent with syncope with low O2 sats with concerns for possible aspiration pneumonia and electrolyte imbalances. Patient was medicated as above. Troponin slightly elevated. Most likely type II. No signs of STEMI. Medicine was consulted case discussed. He will be admitted to the medical service. Patient is agreeable. By the evaluation outlined above emergent etiologies such as hypoglycemia, intracerebral event, toxicologic, neurologic,as well as others were deemed relatively unlikely. The pt informed about the findings as listed above. All questions were answered and pleased with the treatment. The chart was completed utilizing [employer] Speech voice recognition software. Grammatical errors, random word insertions, pronoun errors, and incomplete sentences are an occassional consequence of this system due to software limitations, ambient noise, and hardware issues. Any formal questions or concerns about the content, text, or information contained within the body of this dictation should be directly addressed to the physician assistant winemaker for clarification. Impression & Plan Syncope, Hypomagnesemia, Hypoxemia, Aspiration pneumonia Discharge Plan Visit Data Chief Complaint: Trauma Stated Complaint: FOUND ON FLOOR - RESPONSIVE NOW, BLOOD THINNERS ED Provider: Tu [facility] ED Midlevel Provider: Zehra Curtis Discharge Problem: Syncope, Hypomagnesemia, Hypoxemia, Aspiration pneumonia Patient Disposition: Admitted As Inpatient Condition: Fair Discharge Instructions Interventions: ED Discharge Assessment Last Done: 09/10/24 03:20 Addendum September 10, 2024 06:56 I was consulted by the Advanced Practice Provider and was substantively involved in the patient's visit.This includes aspects of the HPI, MDM, diagnostic interpretations, and disposition/plan. I discussed the case with the [facility] and agree with the findings and plan as documented in R[facility] Ever's note. Discharge Problem: Syncope Qualifiers: Syncope type: unspecified Qualified Code(s): R55 - Syncope and collapse
[2024-09-09 23:34] LABS: Adenovirus PCR Not Detected (NotDetected); Bordetella parapertussis PCR Not Detected (NotDetected); Bordetella pertussis PCR Not Detected (NotDetected); Chlamydia pneumoniae PCR Not Detected (NotDetected); Coronavirus 229E PCR Not Detected (NotDetected); Coronavirus CoV-2 (COVID19)PCR Not Detected (NotDetected); Coronavirus HKU1 PCR Not Detected (NotDetected); Coronavirus NL63 PCR Not Detected (NotDetected); Coronavirus OC43PCR Not Detected (NotDetected); Human Metapneumovirus PCR Not Detected (NotDetected); Influenza A PCR Not Detected (NotDetected); Influenza B PCR Not Detected (NotDetected); Mycoplasma pneumoniae PCR Not Detected (NotDetected); Parainfluenza Virus 1 PCR Not Detected (NotDetected); Parainfluenza Virus 2 PCR Not Detected (NotDetected); Parainfluenza Virus 3 PCR Not Detected (NotDetected); Parainfluenza Virus 4 PCR Not Detected (NotDetected); Respiratory Syncytial VirusPCR Not Detected (NotDetected); Rhinovirus/Enterovirus PCR Not Detected (NotDetected)
--- NOTE | 2024-09-09 23:56 | CT Scan Report ---
Exam(s): CT HEAD Without Contrast EXAM: CT Head Without Intravenous Contrast CLINICAL HISTORY: Reason for exam: ams. TECHNIQUE: Axial computed tomography images of the head/brain without intravenous contrast. CTDI is 62.75 mGy and DLP is 961.59 mGy-cm. Automated exposure control was utilized for the study. A dose lowering technique was utilized adhering to the principles of ALARA. COMPARISON: Prior brain MRI from February 16, 2019. FINDINGS: Study is limited secondary to motion artifact. Brain: Remote ischemic injury of the bilateral frontal, left temporal and parietal lobes with encephalomalacia and gliosis. Hepatic injury of the right eloy. Remote ischemic injuries of the bilateral cerebellar lobes. No hemorrhage. Moderate nonspecific white matter changes.. No edema. Ventricles: Unremarkable. No ventriculomegaly. Bones/joints: Unremarkable. No acute fracture. Soft tissues: Unremarkable. Sinuses: Unremarkable as visualized. No acute sinusitis. Mastoid air cells: Right mastoid effusion. No mastoid effusion. IMPRESSION: No evidence of acute intracranial Pathology. Electronically signed by: Jennifer Mcmahon MD 09/09/24 23:55 PM
[2024-09-10] MEDS: OPTIRAY 320 125ml IV ONE (00:08)
[2024-09-10] MEDS: MAGNESIUM SULFATE / D5W 1 GM/100 ML BAG IV SCH (00:29)
--- NOTE | 2024-09-10 00:29 | XRay Report ---
Exam(s): XR CXR 1 VIEW EXAM: XR Chest, 1 View CLINICAL HISTORY: Reason for exam: weakness. TECHNIQUE: Frontal view of the chest. COMPARISON: Chest x-ray 05/28/2024 FINDINGS: Lungs: No consolidation. No overt edema. Pleural space: No pleural effusion. No pneumothorax. Heart: Unremarkable. No cardiomegaly. IMPRESSION: No acute cardiopulmonary abnormality. Electronically signed by: David Nair MD 09/10/24 00:27 AM
[2024-09-10] MEDS: cefTRIAXone SODIUM 1,000 MG/50 ML BAG IV STA (00:45)
[2024-09-10] MEDS: metroNIDAZOLE 500 MG/100 ML BAG IV STA (01:05)
[2024-09-10] MEDS: CEFEPIME 2000MG 2,000 MG/20 ML SYR IV STA (01:13)
--- NOTE | 2024-09-10 01:39 | CT Scan Report ---
EXAM: CT angio chest PE protocol CLINICAL HISTORY: Patient was coughing and could not stop. Patient reports he took his medication and began to cough. Someone else in home found patient on the ground unresponsive. Pt hypostensive upon EMS arrival with 80% on Room Air. Patient on 4L NC. 78% on Room air upon arrival. 87 ml opti 320 PW TECHNIQUE: Contiguous axial images were obtained from the neck base through the upper abdomen following intravenous administration of iodinated contrast material. Angiographic images were processed, 3D MIP images were acquired for interpretation. If IV contrast material had not been administered, the likelihood of detecting abnormalities relevant to the patient's condition would have been substantially decreased. Coronal and sagittal 3-D MIPs were likewise performed and indicated to increase the sensitivity of detecting diffuse clinically relevant pathology. CT scan was performed according to ALARA (as low as reasonably achievable). COMPARISON: 20 February 2024. FINDINGS: Adequate contrast bolus without evidence of pulmonary embolism. Multiple branching as well as non-branching centrilobular ground-glass and sub solid nodules are noted involving bilateral lung parenchyma, predominantly along the lower aspects. Multiple centriacinar emphysematous changes are noted involving bilateral upper lobe and superior segments of bilateral lower lobes. Resultant hyperinflation of bilateral lung parenchyma is seen. Plate atelectasis is noted in the inferior lingula and right middle lobe. No pleural effusion. No pericardial effusion is identified. The central airways are patent. The heart, aorta, and pulmonary arteries are of normal size and configuration. Atherosclerotic calcifications are noted involving aortic root , aorta and its branches, coronary arteries. No mediastinal, hilar, or axillary lymphadenopathy is noted. The visualized portion of the thyroid is unremarkable. No suspicious lytic or sclerotic osseous lesions are identified. Degenerative changes are noted in the visualized spine. Rest of the findings are unchanged compared to the previous CT scan. IMPRESSION: 1. No evidence of pulmonary embolism. 2. Multiple branching as well as non-branching centrilobular ground-glass and sub solid nodules are noted involving bilateral lung parenchyma, predominantly along the lower aspects. Findings suggestive of infective etiology, possibly atypical/viral pneumonia. Suggested clinical/lab correlation. Most of these are new findings with progression of the previously seen findings. 3. Unchanged multiple centriacinar emphysematous changes are noted involving bilateral upper lobe and superior segments of bilateral lower lobes. Resultant hyperinflation of bilateral lung parenchyma is seen. 4. Unchanged plate atelectasis is noted in the inferior lingula and right middle lobe. Rest of the findings are unchanged compared to the previous CT scan. Electronically signed by Magdaleno Wren 09-10-2024 01:39 AM
--- NOTE | 2024-09-10 02:12 | History & Physical Report ---
Date of Service September 10, 2024 Assessment & Plan (1) Aspiration pneumonia: Plan: Known left sided vocal cord paralysis from prior CEA. Previously has declined PEG tube. Started on CTX and Flagyl for aspiration pneumonia. CT without obvious consolidation. BioFire negative. Likely multifactorial with possible COPD exacerbation - added steroids x 1 and azithromycin for the antiinflammatory effect. Aspiration precautions Bedside dysphagia prior to diet initiation Speech eval ordered Continue CTX, Flagyl, Azithromycin IS, flutter valve, PRN duonebs, PRN albuterol SpO2 goal 88-92 (2) Syncope: Plan: Likely from decreased oxygenation from coughing fit. CT Head without abnormalities. Will monitor on tele. (3) COPD exacerbation: Plan: Slightly acidotic from hypercapnia. Likely chronic. Patient without neurological deficits. Recommend smoking cessation. Continue home inhaler. (4) Vocal fold paralysis, left: Plan: See above (5) Bilateral carotid artery stenosis: Plan: Has had bilateral CEA performed. Subsequent left vocal cord paralysis and right retinal artery occlusion. Patient on ASA and Plavix. Will hold while awaiting speech eval. (6) Type 2 diabetes mellitus: Plan: Patient does not know home meds. but it looks like he is on insulin outpatient. Basal 5 units BID. SSI while inpatient. Pharm consulted for glycemic management (7) Transaminitis: Plan: Etiology unclear. Asymptomatic. Continue to monitor - AM CMP (8) Elevated troponin: Plan: Slightly elevated. No CP. Trend to peak. Plan Patient does not know home meds. Nursing attempted to call the girlfriend without answer. Will need med rec completed. Code status: full DVT ppx: Lovenox 40 SQ daily FENGI: needs speech eval Dispo: tele unit History of Present Illness Chief Complaint: syncope Primary Care Provider: Priti Shah, DO 69 y/o with a PMHx of stroke, carotid artery stenosis s/p bilateral CEA with sequelae of left vocal cord paralysis and right retinal artery occlusion, active smoking, HTN, HLD, COPD, and IDDM here after a syncopal episode. Patient was taking his pills when he choked on the pill and started coughing extremely hard. Patient became short of breath. The next thing he knew he was surrounded by EMS and family. Apparently he was found on the floor, but he does not remember. He thinks this was because of decreased oxygen to the brain and not cardiac related. Patient does have a history of COPD and is actively smoking. Plans to quit. Feels that he is coughing/wheezing a bit more and is having trouble catching his breath. No fevers or chills. No recent illnesses. No nausea or vomiting. No change in bowel or bladder habits. No blood in the urine or stool. No pain in the chest. Patient started on CTX and Flagyl in the ED. Mg was repleted as well. Admission was called for further work up. Allergies Allergy/AdvReac Type Severity Reaction Status Date / Time Penicillins Allergy Unknown UNKNOWN-HAD Verified 08/13/24 13:53 CHILD empagliflozin AdvReac Severe yeast Verified 08/13/24 13:53 [From Jardiance] infection Home Medications Medication Instructions Recorded Confirmed Type latanoprost 0.005 % eye drops 1 drp ophthalmic (eye) HS 12/30/22 09/10/24 History insulin syringe-needle U-100 0.5 #100 ea 10/19/23 09/10/24 Rx mL 31 gauge x 5/16" (Advocate Syringes) pen needle, diabetic 32 gauge x #200 ea 01/10/24 09/10/24 Rx 5/32" (BD Ultra-Fine Belen Pen Needle) blood-glucose meter,continuous #1 ea 01/31/24 09/10/24 Rx (FreeStyle Que 3 Dalton) cyclobenzaprine 5 mg tablet 5 mg PO TID PRN muscle spasm #20 04/29/24 09/10/24 Rx tabs amlodipine 5 mg tablet 5 mg PO QPM 05/23/24 09/10/24 History blood sugar diagnostic (OneTouch #100 ea 05/24/24 09/10/24 Rx Verio test strips) oxycodone-acetaminophen 5 mg-325 1 tab PO Q6H PRN pain #10 tabs 06/12/24 09/10/24 Rx mg tablet (Percocet) blood-glucose sensor (FreeStyle #2 ea 06/26/24 09/10/24 Rx Que 3 Sensor device) atorvastatin 80 mg tablet 80 mg PO QPM #90 tabs 07/19/24 09/10/24 Rx clopidogrel 75 mg tablet (Plavix) 75 mg PO QPM #90 tabs 08/01/24 09/10/24 Rx insulin aspart U-100 100 unit/mL 1 sliding scale dose subcut 08/01/24 09/10/24 Rx (3 mL) subcutaneous pen (Novolog USEASDIRECTD #15 mL FlexPen U-100 Insulin aspart) insulin glargine 100 unit/mL (3 15 - 16 unit (0.15 - 0.16 mL) 08/01/24 09/10/24 Rx mL) subcutaneous pen (Lantus subcut QAM #15 mL Solostar U-100 Insulin) losartan 50 mg tablet 50 mg PO QPM #90 tabs 08/01/24 09/10/24 Rx ferrous sulfate 325 mg (65 mg 325 mg PO BID #60 tabs 08/19/24 09/10/24 Rx iron) tablet aspirin 81 mg tablet,delayed 81 mg PO DAILY 09/10/24 09/10/24 History release insulin glargine 100 unit/mL (3 14 unit subcut DAILY 09/10/24 09/10/24 History mL) subcutaneous pen (Lantus Solostar U-100 Insulin) umeclidinium 62.5 mcg-vilanterol 1 inh inhalation DAILY 09/10/24 09/10/24 History 25 mcg/actuation powdr for inhalation (Anoro Ellipta) Past Med/Surg History Problem List (Updated 09/10/24 @ 03:20 by Catia Mistry MD) Elevated troponin Transaminitis COPD exacerbation Aspiration pneumonia (Acute) Hypoxemia (Acute) Hypomagnesemia (Acute) Syncope (Acute) Central retinal vein occlusion, right eye Stenosis of right carotid artery Glaucoma Cerebral vascular disease Erectile dysfunction BPH (benign prostatic hyperplasia) History of Hodgkin's lymphoma (~1987) In remission COPD (chronic obstructive pulmonary disease) Dysarthria, post-stroke Bilateral carotid artery stenosis s/p left CEA (2018) Vitamin D deficiency Tobacco abuse Dyslipidemia Essential hypertension Type 2 diabetes mellitus Schatzki's ring Vocal fold paralysis, left s/p L CEA; pt saw 06/18/18 for this dx History of stroke x 2: 2014, 2017; no current weakness problems following the strokes. memory loss. GERD (gastroesophageal reflux disease) TIA (transient ischemic attack) (~07/2017) Medical History Potential difficult airway on pre-intubation assessment Dysphagia Hyperlipidemia Hypertension BPH (benign prostatic hyperplasia) Glaucoma History of pneumonia Vocal fold paralysis, left Diabetes mellitus, type 2 Hx of transient ischemic attack (TIA) (07/2017) Schatzki's ring History of stroke Hx of Hodgkins lymphoma (1987) GERD (gastroesophageal reflux disease) Chronic obstructive pulmonary disease Memory loss or impairment Dysesthesia Chronic cerebral ischemia Zenkers diverticulum Cricopharyngeal hypertrophy Hiatal hernia Surgical History History of transcarotid artery revascularization (TCAR) (05/2024) H/O myringotomy S/P ORIF (open reduction internal fixation) fracture (11/22/19) Left leg injury (~1970) History of arthroscopy History of herniorrhaphy History of carotid endarterectomy (05/29/18) History of esophagogastroduodenoscopy (EGD) (02/2018) Family History Other Alzheimer disease Aneurysm No family history of adverse response to anesthesia Denies family history of Ovarian cancer Prostate cancer Myocardial infarction Breast cancer Colorectal cancer Social History Smoking Status: Current some day smoker Tobacco Type: Cigarettes Age Started Using Tobacco: 16; packs per day: 0.5; Cigarettes Per Day: 10 (advised on policy); Second Hand Exposure: No; Do You Dip or Chew Tobacco: No; Hx Alcohol Use: No Hx Substance Use: No Preferred Language: Angolan Communication Ability: Effective Visual Impairment: No Limitations Hearing Ability: Hard of Hearing Laminator Hand Required: No Beliefs That Will Affect Care: None marital status: marital status details: engaged Current Living Situation: Significant Other Current Living Situation Comment: lives with girlfriend current occupational status: retired How many Children do You have: 2 Other Information That Helps Us Care for You: No Feels Safe at Home: Yes Diet: regular Diet Comment: regular caffeine: Yes during the past year weight has: remained stable Dental Care, Regularly: No Physical Activity Frequency: Daily Seatbelt Use: always Sunscreen Use: No Assistive Devices: Denture - Upper, Denture - Lower, Glasses, Hearing Aid - Bilateral and Hospital Bed Review of Systems 2 Review of Systems: See HPI Physical Exam 2 Physical Exam: Gen: thin appearing patient in NAD, coughing frequently HEENT: AT NC MMM Resp: decreased air movement, scattered wheezing and rhonchi, no increased work of breathing CV: RRR no m/r/g clinically well perfused Abd: + BS, soft, non-tender, non-distended MSK: no obvious deformities Skin: no rashes or bruising Neuro: alert and oriented Psych: appropriate mood and affect Results & Data Results & Data Vital Signs (Past 12 Hours) Vital Signs Temp Pulse Pulse Resp BP BP Pulse Ox 09/10/24 01:20 78 09/10/24 01:00 76 18 142/78 H 94 09/09/24 23:09 92 H 18 135/71 93 09/09/24 21:29 86 23 95 09/09/24 21:26 09/09/24 21:26 85 24 137/88 98 09/09/24 21:26 36.4 C L 88 21 137/88 97 09/09/24 21:25 93 H 09/09/24 21:06 36.4 C L 93 H 17 137/88 90 O2 Del Method O2 Flow Rate 09/10/24 01:20 09/10/24 01:00 Nasal Cannula 2 09/09/24 23:09 Nasal Cannula 2 09/09/24 21:29 Nasal Cannula 2 09/09/24 21:26 Room Air 09/09/24 21:26 Nasal Cannula 4 09/09/24 21:26 Nasal Cannula 6 09/09/24 21:25 09/09/24 21:06 Nasal Cannula 6 Laboratory Results 09/09/24 22:30 09/09/24 22:31 Diagnostic Findings Chest X-Ray 09/09/24 21:29 FINDINGS: Lungs: No consolidation. No overt edema. Pleural space: No pleural effusion. No pneumothorax. Heart: Unremarkable. No cardiomegaly. IMPRESSION: No acute cardiopulmonary abnormality. Head CT 09/09/24 21:29 FINDINGS: Study is limited secondary to motion artifact. Brain: Remote ischemic injury of the bilateral frontal, left temporal and parietal lobes with encephalomalacia and gliosis. Hepatic injury of the right eloy. Remote ischemic injuries of the bilateral cerebellar lobes. No hemorrhage. Moderate nonspecific white matter changes. No edema. Ventricles: Unremarkable. No ventriculomegaly. Bones/joints: Unremarkable. No acute fracture. Soft tissues: Unremarkable. Sinuses: Unremarkable as visualized. No acute sinusitis. Mastoid air cells: Right mastoid effusion. No mastoid effusion. IMPRESSION: No evidence of acute intracranial Pathology. Chest CTA 09/09/24 23:19 FINDINGS: Adequate contrast bolus without evidence of pulmonary embolism. Multiple branching as well as non-branching centrilobular ground-glass and sub solid nodules are noted involving bilateral lung parenchyma, predominantly along the lower aspects. Multiple centriacinar emphysematous changes are noted involving bilateral upper lobe and superior segments of bilateral lower lobes. Resultant hyperinflation of bilateral lung parenchyma is seen. Plate atelectasis is noted in the inferior lingula and right middle lobe. No pleural effusion. No pericardial effusion is identified. The central airways are patent. The heart, aorta, and pulmonary arteries are of normal size and configuration. Atherosclerotic calcifications are noted involving aortic root , aorta and its branches, coronary arteries. No mediastinal, hilar, or axillary lymphadenopathy is noted. The visualized portion of the thyroid is unremarkable. No suspicious lytic or sclerotic osseous lesions are identified. Degenerative changes are noted in the visualized spine. Rest of the findings are unchanged compared to the previous CT scan. IMPRESSION: 1. No evidence of pulmonary embolism. 2. Multiple branching as well as non-branching centrilobular ground-glass and sub solid nodules are noted involving bilateral lung parenchyma, predominantly along the lower aspects. Findings suggestive of infective etiology, possibly atypical/viral pneumonia. Suggested clinical/lab correlation. Most of these are new findings with progression of the previously seen findings. 3. Unchanged multiple centriacinar emphysematous changes are noted involving bilateral upper lobe and superior segments of bilateral lower lobes. Resultant hyperinflation of bilateral lung parenchyma is seen. 4. Unchanged plate atelectasis is noted in the inferior lingula and right middle lobe. Rest of the findings are unchanged compared to the previous CT scan. Supervising Physician Co-Signing Physician Notes Patient seen and examined, chart reviewed, case discussed with Dr. Mistry and I agree with the assessment and plan as above Resident Activity Tracking Resident Involvement: Resident Care Provided Care Provided: Adult Hospital Medicine (2) Syncope Syncope type: unspecified Qualified Code(s): R55 - Syncope and collapse
[2024-09-10] MEDS ORDERED: DEXTROSE 50% 50 ML SYRINGE IV PRN (02:39)
[2024-09-10] MEDS ORDERED: PHARMACY GLYCEMIC MGMT CONSULT PRN (02:39)
[2024-09-10] MEDS ORDERED: CARBOHYDRATES FOR HYPOGLYCEMIA PO PRN (02:39)
[2024-09-10] MEDS ORDERED: GLUCOSE 40% GEL 15 GM TUBE PO PRN (02:39)
[2024-09-10] MEDS ORDERED: GLUCOSE 10 TAB/TUBE PO PRN (02:39)
[2024-09-10] MEDS ORDERED: GLUCAGON FOR INJ 1 MG VIAL SQ PRN (02:39)
[2024-09-10] MEDS ORDERED: ALBUT/IPRATROP 3MG/0.5MG NEB 3 ML VIAL NEB PRN (03:20)
[2024-09-10] MEDS ORDERED: ALBUTEROL HFA 8 GM INHALER INH PRN (03:20)
[2024-09-10] MEDS: ALBUT/IPRATROP 3MG/0.5MG NEB 3 ML VIAL NEB STA ×2 (03:33→03:38)
[2024-09-10] MEDS: methylPREDNISolone 125 MG/2 ML VIAL IV STA (03:38)
[2024-09-10] MEDS: AZITHROMYCIN 500 MG in DEXTROSE 5% 250 ML IV STA (04:27)
--- NOTE | 2024-09-10 04:46 | Billing Data ---
Date of Service September 10, 2024 Coding Level of Care Code 14245 INT INP/OBS CARE
[2024-09-10] MEDS: INSULIN ASPART PER UNIT CHARGE SC SCH ×2 (06:15→13:40)
[2024-09-10 06:59] LABS: Hematocrit (blood only) 34.1 % (42.0-52.0); Hemoglobin 10.9 g/dl (14.0-18.0); Mean Corpuscular Hemoglobin 27.7 pg (25.0-34.0); Mean Corpuscular Volume 86.5 fL (80.0-100.0); Platelet Count 332 K/uL (130-400); RDW Coefficient of Variation 13.6 % (11.5-14.5); RDW Standard Deviation 43.4 fL (36.4-46.3); Red Blood Count 3.94 M/uL (4.70-6.10); White Blood Count 19.27 K/ul (4.8-10.8)
[2024-09-10 07:16] LABS: Albumin Globulin Ratio 1.4 (0.9-2); Albumin Level 3.4 gm/dl (3.4-5.0); BUN Creatinine Ratio 13.9 (10-20); Bilirubin,Total 0.4 mg/dl (0.2-1.0); Calcium 8.5 mg/dl (8.6-10.3); Creatinine Clr Calc Pharmacy 71.6 ml/min; Globulin 2.4 gm/dl (2.5-4.0); Magnesium 1.5 mg/dl (1.7-2.4); Potassium 3.8 mmol/L (3.5-5.1); Total Protein 5.8 gm/dl (6.0-8.3)
[2024-09-10 07:21] LABS: Basophils # (auto) 0.05 K/uL (0.00-0.20); Basophils % (auto) 0.3 %; Eosinophils # (auto) 0.01 K/uL (0.00-0.50); Eosinophils % (auto) 0.1 %; Immature Granulocytes # (auto) 0.07 K/uL (0.01-0.20); Immature Granulocytes % (auto) 0.4 %; Lymphocytes # (auto) 0.37 K/uL (1.20-3.40); Lymphocytes % (auto) 1.9 %; Monocytes % (auto) 2.1 %; Neutrophils # (auto) 18.37 K/uL (1.40-6.50); Neutrophils % (auto) 95.2 %; Ovalocytes 1+
[2024-09-10] MEDS: metroNIDAZOLE 500 MG/100 ML BAG IV SCH (07:47)
[2024-09-10 08:27] LABS: Estimated Average Glucose 174 mg/dl; Hemoglobin A1C 7.7 % (4.5-5.6)
[2024-09-10] MEDS: LANTUS PER UNIT CHARGE SQ SCH ×2 (08:45→21:01)
[2024-09-10] MEDS ORDERED: LANTUS PER UNIT CHARGE SQ SCH ×2 (09:00)
[2024-09-10] MEDS: ENOXAPARIN INJ 40 MG/0.4 ML SYR SQ SCH (09:42)
[2024-09-10] MEDS: UMECLIDINIUM/VILANTEROL 62.5/25MCG 7 PUFFS/INHALER INH SCH (09:43)
[2024-09-10] MEDS: PANTOprazole 40 MG/10 ML SYR IV SCH (09:43)
[2024-09-10] MEDS: INSULIN ASPART PER UNIT CHARGE SC ONE (09:55)
--- NOTE | 2024-09-10 14:01 | Pharmacy Report ---
Pharmacy Glycemic Short Note 2 - Date of Service September 10, 2024 - Glycemic Short BSG Results (Last 24 hours): 09/09/24 09/10/24 09/10/24 22:31 06:08 06:14 Glucose 211 H 259 H POC Glucose 251 H 09/10/24 09/10/24 08:01 11:39 Glucose POC Glucose 161 H 241 H OUTPATIENT ANTIDIABETIC REGIMEN: * Lantus 15-16 units SC daily * Novolog SSI HbA1c: 7.7% (09/10/24) ASSESSMENT: * ELICEO is a 69 year old male who presents with shortness of breath likely secondary to COPD exacerbation/aspiration pneumonia * Patient received 60 mg IV dose of methylprednisolone this morning, no ongoing steroids ordered at this time * Patient hyperglycemic on presentation >250 mg/dL * Pertinent PMH includes T2DM, COPD, hx of stroke, CAD, HTN, and HLD PLAN FOR INPATIENT GLYCEMIC CONTROL: * Basal insulin * Lantus 0-5-10 units SQ BID * Bolus insulin * NovoLog per scale ACHS or Q6hrs while NPO * Goal Range: Low 110 mg/dL - High 140 mg/dL * Correction Factor: 30 mg/dL/unit * Nutritional / Prandial insulin per carb ratio of 1 unit per 10 grams CHO consumed
--- NOTE | 2024-09-10 14:45 | Fluoroscopy Report ---
FL video swallow CLINICAL HISTORY: 69 years-old Male with chronic dysphagia. TECHNIQUE: Video fluoroscopic evaluation of swallowing was performed in the AP and lateral projection s by the speech pathology staff. The patient is fed varying consistencies of barium. FLUOROSCOPY TIME: 3.35 minutes. 5236 images. 12.0 mGy COMPARISON STUDY: 02/18/2019. FINDINGS: There is abnormal hyoid excursion and epiglottic deflection. Laryngeal penetration and sile nt aspiration with thin liquid barium. There is a considerable amount of vallecular and piriform sinu s retention throughout the study. No additional aspiration identified. IMPRESSION: 1. Silent aspiration with thin liquid barium. 2. Please see the speech pathologist report for detailed findings and recommendations. ACT 112: Negative or not required by law. Electronically signed by: Rios Mckeon M.D. 09/10/2024 2:44 PM
[2024-09-10] MEDS: LANTUS PER UNIT CHARGE SQ ONE (14:46)
[2024-09-11] MEDS: INSULIN ASPART PER UNIT CHARGE SC SCH (00:25)
[2024-09-11] MEDS: cefTRIAXone SODIUM 2,000 MG/50 ML BAG IV SCH (00:55)
[2024-09-11] MEDS: AZITHROMYCIN 250 MG in DEXTROSE 5% 250 ML IV SCH (06:11)
[2024-09-11 08:00] LABS: Basophils # (auto) 0.06 K/uL (0.00-0.20); Basophils % (auto) 0.4 %; Hematocrit (blood only) 31.4 % (42.0-52.0); Hemoglobin 9.9 g/dl (14.0-18.0); Immature Granulocytes # (auto) 0.06 K/uL (0.01-0.20); Immature Granulocytes % (auto) 0.4 %; Lymphocytes # (auto) 1.77 K/uL (1.20-3.40); Lymphocytes % (auto) 11.6 %; Mean Corpuscular Hemoglobin 27.3 pg (25.0-34.0); Mean Corpuscular Hgb Conc 31.5 g/dL (32.0-36.0); Mean Corpuscular Volume 86.7 fL (80.0-100.0); Mean Platelet Volume 9.2 fL (9.4-12.4); Monocytes # (auto) 0.93 K/uL (0.11-0.59); Monocytes % (auto) 6.1 %; Neutrophils # (auto) 12.12 K/uL (1.40-6.50); Neutrophils % (auto) 79.5 %; Platelet Count 324 K/uL (130-400); RDW Coefficient of Variation 13.6 % (11.5-14.5); RDW Standard Deviation 42.9 fL (36.4-46.3); Red Blood Count 3.62 M/uL (4.70-6.10); White Blood Count 15.24 K/ul (4.8-10.8)
[2024-09-11 08:05] LABS: Albumin Globulin Ratio 1.4 (0.9-2); BUN Creatinine Ratio 18.3 (10-20); Bilirubin,Total 0.3 mg/dl (0.2-1.0); Calcium 8.4 mg/dl (8.6-10.3); Globulin 2.2 gm/dl (2.5-4.0); Potassium 3.6 mmol/L (3.5-5.1); Total Protein 5.2 gm/dl (6.0-8.3)
--- NOTE | 2024-09-11 08:47 | Palliative Care Consultation ---
Date of Consultation September 11, 2024 History of Present Illness Attending Physician: Oni Vasquez Allergies Allergy/AdvReac Type Severity Reaction Status Date / Time Penicillins Allergy Unknown UNKNOWN-HAD Verified 08/13/24 13:53 CHILD empagliflozin AdvReac Severe yeast Verified 08/13/24 13:53 [From Jardiance] infection Home Medications Medication Instructions Recorded Confirmed Type latanoprost 0.005 % eye drops 1 drp ophthalmic (eye) HS 12/30/22 09/10/24 History insulin syringe-needle U-100 0.5 #100 ea 10/19/23 09/10/24 Rx mL 31 gauge x 5/16" ([facility] Syringes) pen needle, diabetic 32 gauge x #200 ea 01/10/24 09/10/24 Rx 5/32" (BD Ultra-Fine Belen Pen Needle) blood-glucose meter,continuous #1 ea 01/31/24 09/10/24 Rx (FreeStyle Que 3 Wyatt) cyclobenzaprine 5 mg tablet 5 mg PO TID PRN muscle spasm #20 04/29/24 09/10/24 Rx tabs amlodipine 5 mg tablet 5 mg PO QPM 05/23/24 09/10/24 History blood sugar diagnostic (OneTouch #100 ea 05/24/24 09/10/24 Rx Verio test strips) oxycodone-acetaminophen 5 mg-325 1 tab PO Q6H PRN pain #10 tabs 06/12/24 09/10/24 Rx mg tablet (Percocet) blood-glucose sensor (FreeStyle #2 ea 06/26/24 09/10/24 Rx Que 3 Sensor device) atorvastatin 80 mg tablet 80 mg PO QPM #90 tabs 07/19/24 09/10/24 Rx clopidogrel 75 mg tablet (Plavix) 75 mg PO QPM #90 tabs 08/01/24 09/10/24 Rx insulin aspart U-100 100 unit/mL 1 sliding scale dose subcut 08/01/24 09/10/24 Rx (3 mL) subcutaneous pen (Novolog USEASDIRECTD #15 mL FlexPen U-100 Insulin aspart) insulin glargine 100 unit/mL (3 15 - 16 unit (0.15 - 0.16 mL) 08/01/24 09/10/24 Rx mL) subcutaneous pen (Lantus subcut QAM #15 mL Solostar U-100 Insulin) losartan 50 mg tablet 50 mg PO QPM #90 tabs 08/01/24 09/10/24 Rx ferrous sulfate 325 mg (65 mg 325 mg PO BID #60 tabs 08/19/24 09/10/24 Rx iron) tablet aspirin 81 mg tablet,delayed 81 mg PO DAILY 09/10/24 09/10/24 History release insulin glargine 100 unit/mL (3 14 unit subcut DAILY 09/10/24 09/10/24 History mL) subcutaneous pen (Lantus Solostar U-100 Insulin) umeclidinium 62.5 mcg-vilanterol 1 inh inhalation DAILY 09/10/24 09/10/24 History 25 mcg/actuation powdr for inhalation (Anoro Ellipta) Patient History Medical History Potential difficult airway on pre-intubation assessment Dysphagia Hyperlipidemia Hypertension BPH (benign prostatic hyperplasia) Glaucoma History of pneumonia Vocal fold paralysis, left Diabetes mellitus, type 2 Hx of transient ischemic attack (TIA) (07/2017) Schatzki's ring History of stroke Hx of Hodgkins lymphoma (1987) GERD (gastroesophageal reflux disease) Chronic obstructive pulmonary disease Memory loss or impairment Dysesthesia Chronic cerebral ischemia Zenkers diverticulum Cricopharyngeal hypertrophy Hiatal hernia Surgical History History of transcarotid artery revascularization (TCAR) (05/2024) H/O myringotomy S/P ORIF (open reduction internal fixation) fracture (11/22/19) Left leg injury (~1970) History of arthroscopy History of herniorrhaphy History of carotid endarterectomy (05/29/18) History of esophagogastroduodenoscopy (EGD) (02/2018) Family History Other Alzheimer disease Aneurysm No family history of adverse response to anesthesia Denies family history of Ovarian cancer Prostate cancer Myocardial infarction Breast cancer Colorectal cancer Social History Smoking Status: Current some day smoker Tobacco Type: Cigarettes Age Started Using Tobacco: 16; packs per day: 0.5; Cigarettes Per Day: 10 (advised on policy); Second Hand Exposure: No; Do You Dip or Chew Tobacco: No; Hx Alcohol Use: No Hx Substance Use: No Preferred Language: Polish Communication Ability: Effective Visual Impairment: No Limitations Hearing Ability: Hard of Hearing 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 Second Class Required: No Beliefs That Will Affect Care: None marital status: marital status details: engaged Current Living Situation: Significant Other Current Living Situation Comment: lives with girlfriend current occupational status: retired How many Children do You have: 2 Feels Safe at Home: Yes Diet: regular Diet Comment: regular caffeine: Yes during the past year weight has: remained stable Dental Care, Regularly: No Physical Activity Frequency: Daily Seatbelt Use: always Sunscreen Use: No Assistive Devices: Denture - Upper, Denture - Lower, Glasses, Hearing Aid - Bilateral and Hospital Bed Results & Data Vital Signs (Past 12 Hours) Vital Signs Temp Pulse Resp BP Pulse Ox Pulse Ox O2 Del Method 09/11/24 04:00 94 09/10/24 22:50 36.8 C 70 16 153/71 H 94 Room Air O2 Del Method 09/11/24 04:00 Room Air 09/10/24 22:50 Diagnostic Findings Chest X-Ray 09/09/24 21:29 Exam(s): XR CXR 1 VIEW EXAM: XR Chest, 1 View CLINICAL HISTORY: Reason for exam: weakness. TECHNIQUE: Frontal view of the chest. COMPARISON: Chest x-ray 05/28/2024 FINDINGS: Lungs: No consolidation. No overt edema. Pleural space: No pleural effusion. No pneumothorax. Heart: Unremarkable. No cardiomegaly. IMPRESSION: No acute cardiopulmonary abnormality. Electronically signed by: David Nair MD 09/10/24 00:[address] 09/09/24 21:29 Exam(s): CT HEAD Without Contrast EXAM: CT Head Without Intravenous Contrast CLINICAL HISTORY: Reason for exam: ams. TECHNIQUE: Axial computed tomography images of the head/brain without intravenous contrast. CTDI is 62.75 mGy and DLP is 961.59 mGy-cm. Automated exposure control was utilized for the study. A dose lowering technique was utilized adhering to the principles of ALARA. COMPARISON: Prior brain MRI from February 16, 2019. FINDINGS: Study is limited secondary to motion artifact. Brain: Remote ischemic injury of the bilateral frontal, left temporal and parietal lobes with encephalomalacia and gliosis. Hepatic injury of the right eloy. Remote ischemic injuries of the bilateral cerebellar lobes. No hemorrhage. Moderate nonspecific white matter changes.. No edema. Ventricles: Unremarkable. No ventriculomegaly. Bones/joints: Unremarkable. No acute fracture. Soft tissues: Unremarkable. Sinuses: Unremarkable as visualized. No acute sinusitis. Mastoid air cells: Right mastoid effusion. No mastoid effusion. IMPRESSION: No evidence of acute intracranial Pathology. Electronically signed by: Jennifer Mcmahon MD 09/09/24 23:55 PM Chest CTA 09/09/24 23:19 EXAM: CT angio chest PE protocol CLINICAL HISTORY: Patient was coughing and could not stop. Patient reports he took his medication and began to cough. Someone else in home found patient on the ground unresponsive. Pt hypostensive upon EMS arrival with 80% on Room Air. Patient on 4L NC. 78% on Room air upon arrival. 87 ml opti 320 PW TECHNIQUE: Contiguous axial images were obtained from the neck base through the upper abdomen following intravenous administration of iodinated contrast material. Angiographic images were processed, 3D MIP images were acquired for interpretation. If IV contrast material had not been administered, the likelihood of detecting abnormalities relevant to the patient's condition would have been substantially decreased. Coronal and sagittal 3-D MIPs were likewise performed and indicated to increase the sensitivity of detecting diffuse clinically relevant pathology. CT scan was performed according to ALARA (as low as reasonably achievable). COMPARISON: 20 February 2024. FINDINGS: Adequate contrast bolus without evidence of pulmonary embolism. Multiple branching as well as non-branching centrilobular ground-glass and sub solid nodules are noted involving bilateral lung parenchyma, predominantly along the lower aspects. Multiple centriacinar emphysematous changes are noted involving bilateral upper lobe and superior segments of bilateral lower lobes. Resultant hyperinflation of bilateral lung parenchyma is seen. Plate atelectasis is noted in the inferior lingula and right middle lobe. No pleural effusion. No pericardial effusion is identified. The central airways are patent. The heart, aorta, and pulmonary arteries are of normal size and configuration. Atherosclerotic calcifications are noted involving aortic root , aorta and its branches, coronary arteries. No mediastinal, hilar, or axillary lymphadenopathy is noted. The visualized portion of the thyroid is unremarkable. No suspicious lytic or sclerotic osseous lesions are identified. Degenerative changes are noted in the visualized spine. Rest of the findings are unchanged compared to the previous CT scan. IMPRESSION: 1. No evidence of pulmonary embolism. 2. Multiple branching as well as non-branching centrilobular ground-glass and sub solid nodules are noted involving bilateral lung parenchyma, predominantly along the lower aspects. Findings suggestive of infective etiology, possibly atypical/viral pneumonia. Suggested clinical/lab correlation. Most of these are new findings with progression of the previously seen findings. 3. Unchanged multiple centriacinar emphysematous changes are noted involving bilateral upper lobe and superior segments of bilateral lower lobes. Resultant hyperinflation of bilateral lung parenchyma is seen. 4. Unchanged plate atelectasis is noted in the inferior lingula and right middle lobe. Rest of the findings are unchanged compared to the previous CT scan. Electronically signed by Magdaleno Wren 09-10-2024 01:39 AM Videofluoroscopic Swallow 09/10/24 13:45 FL video swallow CLINICAL HISTORY: 69 years-old Male with chronic dysphagia. TECHNIQUE: Video fluoroscopic evaluation of swallowing was performed in the AP and lateral projections by the speech pathology staff. The patient is fed varying consistencies of barium. FLUOROSCOPY TIME: 3.35 minutes. 5236 images. 12.0 mGy COMPARISON STUDY: 02/18/2019. FINDINGS: There is abnormal hyoid excursion and epiglottic deflection. Laryngeal penetration and silent aspiration with thin liquid barium. There is a considerable amount of vallecular and piriform sinus retention throughout the study. No additional aspiration identified. IMPRESSION: 1. Silent aspiration with thin liquid barium. 2. Please see the speech pathologist report for detailed findings and recommendations. ACT 112: Negative or not required by law. Electronically signed by: Rios Mckeon M.D. 09/10/2024 2:44 PM PG Care Time/CCT Total # of Minutes Spent Total Time Spent with Patient: Total time spent is greater than 50% in coordination of care (as documented) at patient's floor/unit and/or counseling patient: Coding
[2024-09-11] MEDS: LANTUS PER UNIT CHARGE SQ SCH ×2 (09:24→22:46)
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
--- NOTE | 2024-09-11 13:47 | Pharmacy Report ---
Pharmacy Glycemic Short Note 2 - Date of Service September 11, 2024 - Glycemic Short BSG Results (Last 24 hours): 09/10/24 09/10/24 09/11/24 16:36 20:36 00:25 Glucose POC Glucose 166 H 146 H 125 H 09/11/24 09/11/24 09/11/24 06:43 07:12 11:21 Glucose 136 H POC Glucose 157 H 216 H OUTPATIENT ANTIDIABETIC REGIMEN: * Lantus 15-16 units SC daily * Novolog SSI HbA1c: 7.7% (09/10/24) ASSESSMENT: 09/11/24: * Blood sugars better controlled throughout the day yesterday * Received 32 units of insulin (15 units of basal and 17 units of prandial/correctional bolus) * No ongoing steroids * Do not anticipate any major changes to glycemic regimen today 09/10/24: * ELICEO is a 69 year old male who presents with shortness of breath likely secondary to COPD exacerbation/aspiration pneumonia * Patient received 60 mg IV dose of methylprednisolone this morning, no ongoing steroids ordered at this time * Patient hyperglycemic on presentation >250 mg/dL * Pertinent PMH includes T2DM, COPD, hx of stroke, CAD, HTN, and HLD PLAN FOR INPATIENT GLYCEMIC CONTROL: * Basal insulin * Lantus 10 units SC daily * Lantus 0-5-10 units SC HS (see EHR for details) * Bolus insulin * NovoLog per scale ACHS or Q6hrs while NPO * Goal Range: Low 110 mg/dL - High 140 mg/dL * Correction Factor: 35 mg/dL/unit * Nutritional / Prandial insulin per carb ratio of 1 unit per 10 grams CHO consumed
[2024-09-11 18:15] LABS: Calcium 8.7 mg/dl (8.6-10.3)
[2024-09-11 18:20] LABS: BUN Creatinine Ratio 17.2 (10-20)
--- NOTE | 2024-09-11 21:09 | Hospitalist Progress Note ---
Date of Service September 11, 2024 Assessment & Plan (1) Aspiration pneumonia: Plan: Known left sided vocal cord paralysis from prior CEA. Previously has declined PEG tube. Started on CTX and Flagyl for aspiration pneumonia. CT without obvious consolidation. BioFire negative. Likely multifactorial with possible COPD exacerbation - added steroids x 1 and azithromycin for the antiinflammatory effect. Aspiration precautions Bedside dysphagia prior to diet initiation Speech eval ordered Continue CTX, Flagyl, Azithromycin IS, flutter valve, PRN duonebs, PRN albuterol SpO2 goal 88-92 PEG placement scheduled for 09/12/24 (2) Vocal fold paralysis, left: Plan: Scheduled for PEG placement on 09/12/24 appreciate speech therapy/dietary rec's for aspiration precautions. (3) Weight loss, unintentional: Plan: likely secondary to #2 / dysphagia Scheduled for PEG placement on 09/12/24 appreciate speech therapy/dietary rec's for PO/artificial nutrition (4) COPD (chronic obstructive pulmonary disease): Plan: Recommend Smoking Cessation teaching Pt would benefit by establishing/follow up with rail car mechanic. (5) Tobacco abuse: Plan: Recommend Smoking Cessation teaching Declines offer of nicotine patch. Admission and Anticipated Discharge Date Admission Date: September 10, 2024 Subjective 69 yo male reports no new symptoms. Review of Systems Review of Systems: All systems reviewed & are unremarkable except as noted in HPI & below Physical Exam Physical Exam: Gen: thin appearing patient in NAD HEENT: AT NC MMM Abd: + BS, soft, non-tender, non-distended Neuro: alert and oriented Psych: appropriate mood and affect Results & Data Results & Data Vital Signs (Past 12 Hours) Vital Signs Temp Pulse Pulse Resp BP Pulse Ox O2 Del Method 09/11/24 19:29 36.9 C 64 17 122/66 95 Room Air 09/11/24 15:59 71 09/11/24 15:48 36.8 C 65 18 143/68 H 94 Room Air 09/11/24 11:37 36.9 C 67 17 114/57 L 93 Room Air PG Care Time/CCT Total # of Minutes Spent Total Time Spent with Patient: Total time spent is greater than 50% in coordination of care (as documented) at patient's floor/unit and/or counseling patient: Coding Level of Care Code 67689 SUB INP/OBS CARE 2/35MIN Diagnoses Aspiration pneumonia J69.0 Vocal fold paralysis, left J38.01 Weight loss, unintentional R63.4 COPD (chronic obstructive pulmonary disease) J44.9 Tobacco abuse Z72.0
[2024-09-12 07:28] LABS: INR 1.1 (0.9-1.1); Prothrombin Time 11.9 Seconds (9.0-12.0)
--- NOTE | 2024-09-12 09:21 | History & Physical Bridge Note ---
Date of Service September 12, 2024 History & Physical Bridge Note I have examined the patient, reviewed the History & Physical and in the interval since the performance of the History & Physical I have noted the following changes of clinical significance: no changes noted. Continue NPO status. Will attempt PEG placement today. Patient is already receiving IV antibiotics for aspiration pneumonia so will defer pre-op antibiotic orders. Supervising Physician Co-Signing Physician Notes I saw and examined this patient with our nurse practitioner and agree with her assessment and plan. Will proceed with PEG tube placement.
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
--- NOTE | 2024-09-12 15:21 | GI REPORT ---
[facility] Patient: MARK AGUIRRE : 1955 Sex at : Male Age: 69 Years Procedure: Upper GI endoscopy Date: 09/12/2024 Attending Physician: Dick Rajan MD Referring MD: Referred Self; Oni Vasquez M.d. Indications: - Dysphagia Medications: - Monitored Anesthesia Care Complications: - No immediate complications. Estimated Blood Loss: - Estimated blood loss: None. Procedure: - ASA Grade Assessment: - Prior to the procedure, a History and Physical was performed, and patient medications and allergies were reviewed. The patient's tolerance of previous anesthesia was also reviewed. The risks and benefits of the procedure and the sedation options and risks were discussed with the patient. All questions were answered, and informed consent was obtained. [Anticoagulant Agents] [Days Prior to Procedure]. [ASA Grade]. After reviewing the risks and benefits, the patient was deemed in satisfactory condition to undergo the procedure. - The egd scope was introduced through the mouth and advanced to the second part of the duodenum. - The upper GI endoscopy was accomplished without difficulty. Findings: - The examined esophagus was normal. - The was normal. The patient was placed in the supine position for PEG placement. The stomach was insufflated to appose gastric and abdominal adair. A site was located in the body of the stomach with excellent transillumination for placement. The abdominal wall was marked and prepped in a sterile manner. The area was anesthetized with 4 mL of 1% lidocaine. The trocar needle was introduced through the abdominal wall and into the stomach under direct endoscopic view. A snare was introduced through the endoscope and opened in the gastric lumen. The guide wire was passed through the trocar and into the open snare. The snare was closed around the guide wire. The endoscope and snare were removed, pulling the wire out through the mouth. A skin incision was made at the site of needle insertion. The 20 Fr EndoVive Safety gastrostomy tube was lubricated. The G-tube was passed over the guide wire through the mouth, and into the stomach. The trocar needle was removed, and the gastrostomy tube was pulled out from the stomach through the skin. The guide wire was removed, and the external bumper attached to the gastrostomy tube. The feeding tube was then cut to an appropriate length. The final position of the gastrostomy tube was confirmed by skin marking noted to be 2 cm at the external bumper. The final tension and compression of the abdominal wall by the PEG tube and external bumper were checked and revealed that the bumper was moderately tight and mildly deforming the skin. The feeding tube was capped, and the tube site was cleaned and dressed. - The examined duodenum was normal. Impression: - Normal esophagus. - Normal stomach. - A PEG placement was successfully completed. - Normal examined duodenum. - No specimens collected. Recommendation: - Resume previous diet. - Patient has a contact number available for emergencies. The signs and symptoms of potential delayed complications were discussed with the patient. Return to normal activities tomorrow. Written discharge instructions were provided to the patient. Procedure Code(s): - 67493, Esophagogastroduodenoscopy, flexible, transoral; with directed placement of percutaneous gastrostomy tube Diagnosis Code(s): - R13.10, Dysphagia, unspecified CPT(R) - 2022 copyright [employer]. All Rights Reserved. The CPT codes, CCI edits and ICD codes generated are intended as suggestions and were generated based on input data. These codes are preliminary and upon ecology professor review may be revised to meet current compliance and payer requirements. The provider is responsible for the final determination of appropriate codes, and modifiers. Dick Rajan MD This document has been electronically signed. Note Initiated:09/12/2024 Note Completed:09/12/2024 3:21 PM [id number]
--- NOTE | 2024-09-12 16:20 | Electrocardiogram Report ---
Test Reason : Blood Pressure : */* mmHG Vent. Rate : 89 BPM Atrial Rate : 89 BPM P-R Int : 142 ms QRS Dur : 86 ms QT Int : 374 ms P-R-T Axes : 85 255 76 degrees QTcB Int : 455 ms Normal sinus rhythm Right superior axis deviation Pulmonary disease pattern Old Inferior infarct (cited on or before 12-Aug-2015) Abnormal ECG When compared with ECG of 28-May-2024 09:34, Criteria for Anterior infarct are no longer Present Confirmed by Marcial Howe ([id number]) on 09/12/2024 4:19:53 PM Referred By: REFERRED SELF Confirmed By: Marcial Howe
[2024-09-12] MEDS: LIDOCAINE 2% 2 ML VIAL/AMP(20MG/ML) INFIL ONE (16:53)
[2024-09-12] MEDS: PROPOFOL IV EMULSION 10 MG/ML 20 ML VIAL IV ONE (16:53)
--- NOTE | 2024-09-12 23:11 | Hospitalist Progress Note ---
Date of Service September 12, 2024 Assessment & Plan (1) Aspiration pneumonia: Plan: likely secondary to L vocal chord paralysis - chronic PEG placement completed for 09/12/24 will keep NPO. (2) Vocal fold paralysis, left: Plan: Scheduled for PEG placement on 09/12/24 appreciate speech therapy/dietary rec's for aspiration precautions. (3) Weight loss, unintentional: Plan: likely secondary to #2 / dysphagia Scheduled for PEG placement on 09/12/24 appreciate speech therapy/dietary rec's for PO/artificial nutrition (4) COPD (chronic obstructive pulmonary disease): Plan: Recommend Smoking Cessation teaching Pt would benefit by establishing/follow up with library specialist. (5) Tobacco abuse: Plan: Recommend Smoking Cessation teaching Declines offer of nicotine patch. Admission and Anticipated Discharge Date Admission Date: September 10, 2024 Subjective 69 yo male reports no new symptoms. Physical Exam Physical Exam: Gen: thin appearing patient in NAD HEENT: AT NC MMM Abd: + BS, soft, non-tender, non-distended Neuro: alert and oriented Psych: appropriate mood and affect Results & Data Results & Data Vital Signs (Past 12 Hours) Vital Signs Temp Pulse Pulse Resp BP BP Pulse Ox 09/12/24 20:00 09/12/24 19:25 36.9 C 65 18 146/66 H 92 09/12/24 18:12 36.6 C 66 17 146/70 H 97 09/12/24 17:51 36.3 C L 67 20 153/81 H 97 09/12/24 17:15 36.7 C 63 19 161/75 H 96 09/12/24 16:57 36.8 C 65 17 167/74 H 91 09/12/24 16:44 36.5 C 70 16 165/75 H 89 L 09/12/24 16:29 36.6 C 68 16 149/71 H 90 09/12/24 16:17 36.4 C L 67 16 125/62 93 09/12/24 15:52 71 18 155/72 H 95 09/12/24 15:37 79 18 105/60 92 09/12/24 15:33 62 09/12/24 15:22 103 H 16 178/64 H 95 09/12/24 12:52 36.9 C 94 H 16 184/81 H 94 O2 Del Method O2 Flow Rate 09/12/24 20:00 Nasal Cannula 2 09/12/24 19:25 Nasal Cannula 2 09/12/24 18:12 Nasal Cannula 2 09/12/24 17:51 Nasal Cannula 2 09/12/24 17:15 Nasal Cannula 2 09/12/24 16:57 Nasal Cannula 3 09/12/24 16:44 Nasal Cannula 2 09/12/24 16:29 Nasal Cannula 2 09/12/24 16:17 Nasal Cannula 2 09/12/24 15:52 Room Air 09/12/24 15:37 Nasal Cannula 2 09/12/24 15:33 09/12/24 15:22 Nasal Cannula 4 09/12/24 12:52 Room Air PG Care Time/CCT Total # of Minutes Spent Total Time Spent with Patient: Total time spent is greater than 50% in coordination of care (as documented) at patient's floor/unit and/or counseling patient: Coding Level of Care Code 21853 SUB INP/OBS CARE 2/35MIN Diagnoses Aspiration pneumonia J69.0 Vocal fold paralysis, left J38.01 Weight loss, unintentional R63.4 COPD (chronic obstructive pulmonary disease) J44.9 Tobacco abuse Z72.0
[2024-09-12] MEDS: ACETAMINOPHEN 1,000 MG/100 ML VIAL IV PRN (23:41)
[2024-09-13 06:46] LABS: Hemoglobin 11.7 g/dl (14.0-18.0); Mean Corpuscular Hemoglobin 28.1 pg (25.0-34.0); Mean Corpuscular Hgb Conc 32.5 g/dL (32.0-36.0); Mean Corpuscular Volume 86.5 fL (80.0-100.0); Mean Platelet Volume 8.7 fL (9.4-12.4); Platelet Count 347 K/uL (130-400); RDW Coefficient of Variation 13.5 % (11.5-14.5); RDW Standard Deviation 42.5 fL (36.4-46.3); Red Blood Count 4.16 M/uL (4.70-6.10); White Blood Count 11.17 K/ul (4.8-10.8)
[2024-09-13 07:07] LABS: BUN Creatinine Ratio 14.1 (10-20); Calcium 8.8 mg/dl (8.6-10.3); Creatinine Clr Calc Pharmacy 60.8 ml/min; Magnesium 1.5 mg/dl (1.7-2.4); Phosphorus 3.3 mg/dl (2.5-4.9); Potassium 4.5 mmol/L (3.5-5.1)
[2024-09-13] MEDS: MAGNESIUM SULFATE / D5W 1 GM/100 ML BAG IV SCH (07:44)
--- NOTE | 2024-09-13 09:28 | Palliative Care Progress Note ---
Date of Service September 13, 2024 Assessment & Plan (1) Weight loss, unintentional: (2) Aspiration pneumonia: (3) History of Hodgkin's lymphoma: (4) Vocal fold paralysis, left: Plan Medical management per Primary team. Patient had PEG tube placed successfully. Nutrition recs per dietary/ST. Palliative care will sign off at this time as goals of care are clearly established for ongoing life prolonging therapies. Please reconsult for further palliative needs. Admission and Anticipated Discharge Date Admission Date: September 10, 2024 Subjective Met with pt and SO at bedside for ongoing support. He was awake and pleasantly communicative. Pt had successful placement of PEG tube yesterday and is looking forward to returning home. He appears comfortable and in NAD on RA. NAEON. Review of Systems Constitutional: significant weight loss over several months Eyes: chronic blurry vision in right eye Ear, Nose, Mouth, Throat: chronic and progressive difficulty swallowing Respiratory: + cough, + chest congestion and + sputum production difficulty clearing airway of copious thick secretions Cardiovascular: Additional Comments: denies Gastrointestinal: poor appetite, decreased PO intake for several months Musculoskeletal: generalized weakness Physical Exam Constitutional: + ill appearing and + cachectic Eyes: PERRL, conjunctivae normal, anicteric sclerae ENMT: external ear and nose normal, oropharynx normal Neck: trachea midline, no thyromegaly Respiratory: NAD on room air, frequent cough productive for copious tenacious secretions Cardiovascular: RRR, no murmur, no edema Musculoskeletal: Extremities: + muscle atrophy generalized weakness Skin: pale, poor skin turgor. Neurologic: AAOx3, speech content, rate and rhythm WNL. Psychiatric: tearful, appropriate thought process/content and cognition Results & Data Vital Signs (Past 12 Hours) Vital Signs Temp Pulse Pulse Pulse Resp BP Pulse Ox 09/13/24 07:54 36.8 C 71 17 153/78 H 90 09/13/24 07:22 09/13/24 07:11 79 09/13/24 03:16 36.5 C 71 20 138/76 96 09/12/24 23:00 36.8 C 60 16 164/72 H 93 09/12/24 23:00 62 O2 Del Method O2 Flow Rate 09/13/24 07:54 Nasal Cannula 1 09/13/24 07:22 Nasal Cannula 1 09/13/24 07:11 09/13/24 03:16 Nasal Cannula 09/12/24 23:00 Nasal Cannula 2 09/12/24 23:00 Laboratory Results Abnormal lab results 09/12/24 09/12/24 09/12/24 Range/Units 12:07 16:32 20:15 WBC (4.8-10.8) K/ul RBC (4.70-6.10) M/uL Hgb (14.0-18.0) g/dl Hct (42.0-52.0) % MPV (9.4-12.4) fL Carbon Dioxide (21-32) mmol/L POC Glucose 136 H 135 H 110 H (70-99) mg/dl Magnesium (1.7-2.4) mg/dl 09/12/24 09/13/24 Range/Units 21:27 06:30 WBC 11.17 H (4.8-10.8) K/ul RBC 4.16 L (4.70-6.10) M/uL Hgb 11.7 L (14.0-18.0) g/dl Hct 36.0 L (42.0-52.0) % MPV 8.7 L (9.4-12.4) fL Carbon Dioxide 33 H (21-32) mmol/L POC Glucose 100 H (70-99) mg/dl Magnesium 1.5 L (1.7-2.4) mg/dl Diagnostic Findings Chest X-Ray 09/09/24 21:29 Exam(s): XR CXR 1 VIEW EXAM: XR Chest, 1 View CLINICAL HISTORY: Reason for exam: weakness. TECHNIQUE: Frontal view of the chest. COMPARISON: Chest x-ray 05/28/2024 FINDINGS: Lungs: No consolidation. No overt edema. Pleural space: No pleural effusion. No pneumothorax. Heart: Unremarkable. No cardiomegaly. IMPRESSION: No acute cardiopulmonary abnormality. Electronically signed by: David Nair MD 09/10/24 00:[address] 09/09/24 21:29 Exam(s): CT HEAD Without Contrast EXAM: CT Head Without Intravenous Contrast CLINICAL HISTORY: Reason for exam: ams. TECHNIQUE: Axial computed tomography images of the head/brain without intravenous contrast. CTDI is 62.75 mGy and DLP is 961.59 mGy-cm. Automated exposure control was utilized for the study. A dose lowering technique was utilized adhering to the principles of ALARA. COMPARISON: Prior brain MRI from February 16, 2019. FINDINGS: Study is limited secondary to motion artifact. Brain: Remote ischemic injury of the bilateral frontal, left temporal and parietal lobes with encephalomalacia and gliosis. Hepatic injury of the right eloy. Remote ischemic injuries of the bilateral cerebellar lobes. No hemorrhage. Moderate nonspecific white matter changes.. No edema. Ventricles: Unremarkable. No ventriculomegaly. Bones/joints: Unremarkable. No acute fracture. Soft tissues: Unremarkable. Sinuses: Unremarkable as visualized. No acute sinusitis. Mastoid air cells: Right mastoid effusion. No mastoid effusion. IMPRESSION: No evidence of acute intracranial Pathology. Electronically signed by: Jennifer Mcmahon MD 09/09/24 23:55 PM Chest CTA 09/09/24 23:19 EXAM: CT angio chest PE protocol CLINICAL HISTORY: Patient was coughing and could not stop. Patient reports he took his medication and began to cough. Someone else in home found patient on the ground unresponsive. Pt hypostensive upon EMS arrival with 80% on Room Air. Patient on 4L NC. 78% on Room air upon arrival. 87 ml opti 320 PW TECHNIQUE: Contiguous axial images were obtained from the neck base through the upper abdomen following intravenous administration of iodinated contrast material. Angiographic images were processed, 3D MIP images were acquired for interpretation. If IV contrast material had not been administered, the likelihood of detecting abnormalities relevant to the patient's condition would have been substantially decreased. Coronal and sagittal 3-D MIPs were likewise performed and indicated to increase the sensitivity of detecting diffuse clinically relevant pathology. CT scan was performed according to ALARA (as low as reasonably achievable). COMPARISON: 20 February 2024. FINDINGS: Adequate contrast bolus without evidence of pulmonary embolism. Multiple branching as well as non-branching centrilobular ground-glass and sub solid nodules are noted involving bilateral lung parenchyma, predominantly along the lower aspects. Multiple centriacinar emphysematous changes are noted involving bilateral upper lobe and superior segments of bilateral lower lobes. Resultant hyperinflation of bilateral lung parenchyma is seen. Plate atelectasis is noted in the inferior lingula and right middle lobe. No pleural effusion. No pericardial effusion is identified. The central airways are patent. The heart, aorta, and pulmonary arteries are of normal size and configuration. Atherosclerotic calcifications are noted involving aortic root , aorta and its branches, coronary arteries. No mediastinal, hilar, or axillary lymphadenopathy is noted. The visualized portion of the thyroid is unremarkable. No suspicious lytic or sclerotic osseous lesions are identified. Degenerative changes are noted in the visualized spine. Rest of the findings are unchanged compared to the previous CT scan. IMPRESSION: 1. No evidence of pulmonary embolism. 2. Multiple branching as well as non-branching centrilobular ground-glass and sub solid nodules are noted involving bilateral lung parenchyma, predominantly along the lower aspects. Findings suggestive of infective etiology, possibly atypical/viral pneumonia. Suggested clinical/lab correlation. Most of these are new findings with progression of the previously seen findings. 3. Unchanged multiple centriacinar emphysematous changes are noted involving bilateral upper lobe and superior segments of bilateral lower lobes. Resultant hyperinflation of bilateral lung parenchyma is seen. 4. Unchanged plate atelectasis is noted in the inferior lingula and right middle lobe. Rest of the findings are unchanged compared to the previous CT scan. Electronically signed by Magdaleno Wren 09-10-2024 01:39 AM Videofluoroscopic Swallow 09/10/24 13:45 FL video swallow CLINICAL HISTORY: 69 years-old Male with chronic dysphagia. TECHNIQUE: Video fluoroscopic evaluation of swallowing was performed in the AP and lateral projections by the speech pathology staff. The patient is fed varying consistencies of barium. FLUOROSCOPY TIME: 3.35 minutes. 5236 images. 12.0 mGy COMPARISON STUDY: 02/18/2019. FINDINGS: There is abnormal hyoid excursion and epiglottic deflection. Laryngeal penetration and silent aspiration with thin liquid barium. There is a considerable amount of vallecular and piriform sinus retention throughout the study. No additional aspiration identified. IMPRESSION: 1. Silent aspiration with thin liquid barium. 2. Please see the speech pathologist report for detailed findings and recommendations. ACT 112: Negative or not required by law. Electronically signed by: Rios Mckeon M.D. 09/10/2024 2:44 PM Medications Administered Current Inpatient Medications Albuterol (Albut/Ipratrop 3mg/0.5mg Neb 3 Ml Vial) 3 ml NEB Q6R PRN; Protocol PRN Reason: Wheezing Stop: 10/10/24 03:19 Albuterol (Albuterol Hfa 8 Gm Inhaler) 2 puffs INH Q4H PRN PRN Reason: shortness of breath Stop: 10/10/24 03:19 Dextrose (Dextrose 50% 50 Ml Syringe) 25 - 50 ml IV UD PRN; Protocol PRN Reason: Hypoglycemia Protocol Stop: 10/10/24 02:38 Enoxaparin Sodium (Enoxaparin Inj 40 Mg/0.4 Ml Syr) 40 mg SQ QAM DB Stop: 10/10/24 08:59 Last Admin: 09/13/24 07:47 Dose: 40 mg Glucagon (Glucagon For Inj 1 Mg Vial) 1 mg SQ UD PRN; Protocol PRN Reason: Hypoglycemia Protocol Stop: 10/10/24 02:38 Glucose (Glucose 40% Gel 15 Gm Tube) 15 - 30 gm PO UD PRN; Protocol PRN Reason: Hypoglycemia Protocol Stop: 10/10/24 02:38 Glucose (Glucose 10 Tab/Tube) 4 - 8 tab PO UD PRN; Protocol PRN Reason: Hypoglycemia Protocol Stop: 10/10/24 02:38 Azithromycin 250 mg/ Dextrose 252.5 mls @ 125 mls/hr IV Q24H DB; Protocol Stop: 09/14/24 08:02 Last Infusion: 09/13/24 08:42 Dose: Infused Pantoprazole Sodium (Protonix) 40 mg in 10 mls @ 5 mls/min IV DAILY DB Stop: 10/10/24 08:59 Last Admin: 09/13/24 07:48 Dose: 5 mls/min Acetaminophen (Ofirmev) 1,000 mg in 100 mls @ 400 mls/hr IV Q8H PRN PRN Reason: Pain Stop: 09/15/24 23:21 Last Infusion: 09/12/24 23:56 Dose: Infused Magnesium Sulfate/Dextrose (Magnesium Sulfate / D5w) 1 gm in 100 mls @ 50 mls/hr IV Q2H DB Stop: 09/13/24 11:29 Last Admin: 09/13/24 07:44 Dose: 50 mls/hr Insulin Aspart (Insulin Aspart Per Unit Charge) 0 units SC ACHS [facility] Stop: 10/10/24 05:59 Last Admin: 09/13/24 06:30 Dose: Not Given Insulin Glargine (Lantus Per Unit Charge) 0 units SQ HS BD; Protocol Stop: 10/11/24 20:59 Last Admin: 09/12/24 20:30 Dose: Not Given Miscellaneous (Carbohydrates For Hypoglycemia ) 15 - 30 gm PO UD PRN PRN Reason: Hypoglycemia Protocol Stop: 10/10/24 02:38 Miscellaneous Information (Pharmacy Glycemic Mgmt Consult) 1 each N/A UD PRN PRN Reason: Consult Stop: 10/10/24 02:38 Umeclidinium/Vilanterol (Umeclidinium/Vilanterol 62.5/25mcg 7 Puffs/Inhaler) 1 puffs INH QAM DB Stop: 10/10/24 08:59 Last Admin: 09/13/24 07:48 Dose: 1 puffs PG Care Time/CCT Total # of Minutes Spent Total Time Spent with Patient: Total time spent is greater than 50% in coordination of care (as documented) at patient's floor/unit and/or counseling patient: Advanced Care Planning 49339 Advanced Care Planning 30 Min [place] [address] SUB INP/OBS CARE 2/35MIN Patient Type Established Medical Decision Making Low Complexity Diagnoses Weight loss, unintentional R63.4 Aspiration pneumonia J69.0 History of Hodgkin's lymphoma Z85.71 Vocal fold paralysis, left J38.01 Additional Codes Advanced Care Planning - 05014 Advanced Care Planning 30 Min: 09656 Advanced Care Planning 30 Min ([id number])
--- NOTE | 2024-09-13 10:52 | Gastroenterology Progress Note ---
Date of Service September 13, 2024 Assessment & Plan (1) Weight loss, unintentional: Plan: Patient underwent PEG placement on 09/12/24. PEG is in appropriate place without visible abnormality/sign of infection. He may begin using the tube today. Discussed basic PEG care. Admission and Anticipated Discharge Date Admission Date: September 10, 2024 Supervising Physician Co-Signing Physician Notes I saw and examined this patient with our nurse practitioner and agree with her assessment and plan. PEG site clean and dry. No abdominal tenderness or pain. Okay to start tube feedings. Subjective Patient is a 69 yo male with oropharyngeal dysphagia who underwent PEG placement on 09/12. He denies abdominal pain. No issues since his procedure. He has not used the tube yet. Review of Systems Gastrointestinal: no abdominal pain Physical Exam Constitutional: well developed Gastrointestinal (Abdomen): normal bowel sounds, soft, nontender, no hepatosplenomegaly Psychiatric: Orientation: alert and oriented x 3 Results & Data Results & Data Vital Signs (Past 12 Hours) Vital Signs Temp Pulse Pulse Pulse Resp BP Pulse Ox 09/13/24 07:54 36.8 C 71 17 153/78 H 90 09/13/24 07:22 09/13/24 07:11 79 09/13/24 03:16 36.5 C 71 20 138/76 96 09/12/24 23:00 36.8 C 60 16 164/72 H 93 09/12/24 23:00 62 O2 Del Method O2 Flow Rate 09/13/24 07:54 Nasal Cannula 1 09/13/24 07:22 Nasal Cannula 1 09/13/24 07:11 09/13/24 03:16 Nasal Cannula 09/12/24 23:00 Nasal Cannula 2 09/12/24 23:00 PG Care Time/CCT Total # of Minutes Spent Total Time Spent with Patient: Total time spent is greater than 50% in coordination of care (as documented) at patient's floor/unit and/or counseling patient: Coding Level of Care Code 24233 SUB INP/OBS CARE 3/50MIN Diagnoses Weight loss, unintentional R63.4
--- NOTE | 2024-09-13 14:01 | Pharmacy Report ---
Pharmacy Glycemic Short Note 2 - Date of Service September 13, 2024 - Glycemic Short BSG Results (Last 24 hours): 09/12/24 09/12/24 09/12/24 16:32 20:15 21:27 Glucose POC Glucose 135 H 110 H 100 H 09/13/24 09/13/24 09/13/24 06:28 06:30 11:58 Glucose 77 POC Glucose 79 113 H OUTPATIENT ANTIDIABETIC REGIMEN: * Lantus 15-16 units SC daily * Novolog SSI * HbA1c: 7.7% (09/10/24) ASSESSMENT: 09/13/24: * Mr Mills did not receive any insulin yesterday. BSGs remain stable. * Pt had PEG placed yesterday and may begin tube feeds today. * Pharmacy will continue to follow and adjust regimen as indicated, particularly as tube feeds are initiated/titrated. 09/11/24: * Blood sugars better controlled throughout the day yesterday * Received 32 units of insulin (15 units of basal and 17 units of prandial/correctional bolus) * No ongoing steroids * Do not anticipate any major changes to glycemic regimen today 09/10/24: * ELICEO is a 69 year old male who presents with shortness of breath likely secondary to COPD exacerbation/aspiration pneumonia * Patient received 60 mg IV dose of methylprednisolone this morning, no ongoing steroids ordered at this time * Patient hyperglycemic on presentation >250 mg/dL * Pertinent PMH includes T2DM, COPD, hx of stroke, CAD, HTN, and HLD PLAN FOR INPATIENT GLYCEMIC CONTROL: * Basal insulin * Lantus 0-5 units SC HS (see EHR for details) * Bolus insulin * NovoLog per scale ACHS or Q6hrs while NPO * Goal Range: Low 110 mg/dL - High 140 mg/dL * Correction Factor: 35 mg/dL/unit * Nutritional / Prandial insulin per carb ratio of 1 unit per 12 grams CHO consumed
[2024-09-13] MEDS: TUBE FEEDING WATER FLUSH GT SCH (14:07)
--- NOTE | 2024-09-13 14:54 | Anesthesiology Progress Note ---
Date of Service September 13, 2024 Anesthesia Post Procedure Vital Signs Vital Signs: Temp Pulse Pulse Pulse Resp BP BP 09/13/24 11:01 36.5 C 74 18 173/64 H 09/13/24 07:54 36.8 C 71 17 153/78 H 09/13/24 07:22 09/13/24 07:11 79 09/13/24 03:16 36.5 C 71 20 138/76 09/12/24 23:00 36.8 C 60 16 164/72 H 09/12/24 23:00 62 09/12/24 20:00 09/12/24 19:25 36.9 C 65 18 146/66 H 09/12/24 18:12 36.6 C 66 17 146/70 H 09/12/24 17:51 36.3 C L 67 20 153/81 H 09/12/24 17:15 36.7 C 63 19 161/75 H 09/12/24 16:57 36.8 C 65 17 167/74 H 09/12/24 16:44 36.5 C 70 16 165/75 H 09/12/24 16:29 36.6 C 68 16 149/71 H 09/12/24 16:17 36.4 C L 67 16 125/62 09/12/24 15:52 71 18 155/72 H 09/12/24 15:37 79 18 105/60 09/12/24 15:33 62 09/12/24 15:22 103 H 16 178/64 H Pulse Ox O2 Del Method O2 Flow Rate 09/13/24 11:01 89 L Nasal Cannula 1 09/13/24 07:54 90 Nasal Cannula 1 09/13/24 07:22 Nasal Cannula 1 09/13/24 07:11 09/13/24 03:16 96 Nasal Cannula 09/12/24 23:00 93 Nasal Cannula 2 09/12/24 23:00 09/12/24 20:00 Nasal Cannula 2 09/12/24 19:25 92 Nasal Cannula 2 09/12/24 18:12 97 Nasal Cannula 2 09/12/24 17:51 97 Nasal Cannula 2 09/12/24 17:15 96 Nasal Cannula 2 09/12/24 16:57 91 Nasal Cannula 3 09/12/24 16:44 89 L Nasal Cannula 2 09/12/24 16:29 90 Nasal Cannula 2 09/12/24 16:17 93 Nasal Cannula 2 09/12/24 15:52 95 Room Air 09/12/24 15:37 92 Nasal Cannula 2 09/12/24 15:33 09/12/24 15:22 95 Nasal Cannula 4 Transfer of Care Handoff Completed per policy Notes Mental Status: alert / awake / arousable and participated in evaluation Nausea / Vomiting: adequately controlled Pain: adequately controlled Airway Patency, RR, SpO2: stable & adequate BP & HR: stable & adequate Hydration State: stable & adequate Anesthetic Complications: no major complications apparent and Pt Satisfied with anesthetic care
--- NOTE | 2024-09-13 23:40 | Hospitalist Progress Note ---
Date of Service September 13, 2024 Assessment & Plan (1) Aspiration pneumonia: Plan: likely secondary to L vocal chord paralysis - chronic PEG placement completed for 09/12/24 will keep NPO. Started peg tube feedings. (2) Vocal fold paralysis, left: Plan: Scheduled for PEG placement on 09/12/24 appreciate speech therapy/dietary rec's for aspiration precautions. 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 (5) Tobacco abuse: Plan: Recommend Smoking Cessation teaching Declines offer of nicotine patch. Admission and Anticipated Discharge Date Admission Date: September 10, 2024 Subjective 69 yo male reports no new symptoms. Tolerating diet. Review of Systems Review of Systems: All systems reviewed & are unremarkable except as noted in HPI & below Physical Exam Physical Exam: Gen: thin appearing patient in NAD HEENT: AT NC MMM Abd: + BS, soft, non-tender, non-distended Neuro: alert and oriented Psych: appropriate mood and affect Results & Data Results & Data Vital Signs (Past 12 Hours) Vital Signs Temp Pulse Pulse Resp BP Pulse Ox O2 Del Method 09/13/24 22:49 36.9 C 81 16 154/69 H 90 Room Air 09/13/24 21:57 73 09/13/24 21:00 Room Air 09/13/24 19:13 37.0 C 72 20 164/73 H 90 Room Air 09/13/24 15:53 37.3 C 70 18 166/72 H 90 Room Air 09/13/24 15:04 62 PG Care Time/CCT Total # of Minutes Spent Total Time Spent with Patient: Total time spent is greater than 50% in coordination of care (as documented) at patient's floor/unit and/or counseling patient: Coding Level of Care Code 20075 SUB INP/OBS CARE 2/35MIN Diagnoses Aspiration pneumonia J69.0 Vocal fold paralysis, left J38.01 Weight loss, unintentional R63.4 COPD (chronic obstructive pulmonary disease) J44.9 Tobacco abuse Z72.0
[2024-09-14 06:51] LABS: Hematocrit (blood only) 36.1 % (42.0-52.0); Hemoglobin 11.4 g/dl (14.0-18.0); Mean Corpuscular Hemoglobin 26.8 pg (25.0-34.0); Mean Corpuscular Hgb Conc 31.6 g/dL (32.0-36.0); Mean Corpuscular Volume 84.9 fL (80.0-100.0); Mean Platelet Volume 8.8 fL (9.4-12.4); Platelet Count 363 K/uL (130-400); RDW Coefficient of Variation 13.3 % (11.5-14.5); RDW Standard Deviation 41.3 fL (36.4-46.3); Red Blood Count 4.25 M/uL (4.70-6.10)
[2024-09-14 07:22] LABS: BUN Creatinine Ratio 15.2 (10-20); Calcium 8.7 mg/dl (8.6-10.3); Creatinine Clr Calc Pharmacy 65.6 ml/min; Magnesium 1.8 mg/dl (1.7-2.4); Phosphorus 3.2 mg/dl (2.5-4.9); Potassium 4.5 mmol/L (3.5-5.1)
[2024-09-14] MEDS: LANTUS PER UNIT CHARGE SQ SCH (08:38)
[2024-09-14] MEDS: INSULIN ASPART PER UNIT CHARGE SC SCH (08:38)
[2024-09-14] MEDS ORDERED: LANTUS PER UNIT CHARGE SQ SCH (09:00)
--- NOTE | 2024-09-14 13:52 | Pharmacy Report ---
Pharmacy Glycemic Short Note 2 - Date of Service September 14, 2024 - Glycemic Short BSG Results (Last 24 hours): 09/13/24 09/13/24 09/14/24 16:21 20:14 06:29 Glucose 219 H POC Glucose 101 H 103 H 09/14/24 09/14/24 07:17 11:18 Glucose POC Glucose 247 H 177 H OUTPATIENT ANTIDIABETIC REGIMEN: * Lantus 15-16 units SC daily * Novolog SSI * HbA1c: 7.7% (09/10/24) ASSESSMENT: 09/14/24: * Fibersource (160 g of CHO/L) started yesterday, titrated up to 30 mL/hr as of this AM * Blood sugars elevated thus far today * Will restart basal insulin w/ tube feeds and add order to cover tube feeds 09/13/24: * Mr Mills did not receive any insulin yesterday. BSGs remain stable. * Pt had PEG placed yesterday and may begin tube feeds today. * Pharmacy will continue to follow and adjust regimen as indicated, particularly as tube feeds are initiated/titrated. 09/11/24: * Blood sugars better controlled throughout the day yesterday * Received 32 units of insulin (15 units of basal and 17 units of prandial/correctional bolus) * No ongoing steroids * Do not anticipate any major changes to glycemic regimen today 09/10/24: * ELICEO is a 69 year old male who presents with shortness of breath likely secondary to COPD exacerbation/aspiration pneumonia * Patient received 60 mg IV dose of methylprednisolone this morning, no ongoing steroids ordered at this time * Patient hyperglycemic on presentation >250 mg/dL * Pertinent PMH includes T2DM, COPD, hx of stroke, CAD, HTN, and HLD PLAN FOR INPATIENT GLYCEMIC CONTROL: * Basal insulin - increase * Lantus 10 units SC qAM * Bolus insulin - cover tube feeds * NovoLog per scale ACHS or Q6hrs while NPO * Goal Range: Low 110 mg/dL - High 140 mg/dL * Correction Factor: 45 mg/dL/unit * Nutritional / Prandial insulin per carb ratio of 1 unit per 15 grams CHO consumed
[2024-09-14] MEDS: OPTIRAY 320 100ml IV ONE (14:12)
[2024-09-14] MEDS: FIBERSOURCE HN 1.2 CAL 1000 ML BAG GT SCH (14:31)
--- NOTE | 2024-09-14 14:49 | CT Scan Report ---
EXAMINATION: Abdomen and pelvis CT with CLINICAL HISTORY: Weight loss PRIORS: 05/23/2018 CT TECHNIQUE: Contiguous axial images were obtained through the abdomen and pelvis with the use of intravenous contrast. Sagittal and coronal reformations are supplied. FINDINGS: Moderate airspace consolidation/opacification present in the left lower lobe at the edge of the [id number]. No air bronchograms. No pleural effusion. A PEG tube is present with balloon inflated in the stomach appropriately. Stomach is under distended. Large gallstone is present in the gallbladder lumen. The liver, pancreas, spleen, adrenals and IVC are morphologically unremarkable. Advanced atherosclerotic disease of the abdominal aorta noted. Urinary bladder distended and morphologically unremarkable. High density material present throughout the transverse and descending colon. No dilated loops of bowel or pericolonic inflammatory change. No ascites A large amount of formed stool present in the colon. No extraluminal gas. In bone windows, degenerative change at L5-S1. IMPRESSION: 1. Masslike airspace consolidation in the lung, left lower lobe, at the edge of the [id number]. Findings could represent pneumonia in the proper clinical setting. However, malignancy is also on the differential diagnosis. 2. Cholelithiasis. 3. Advanced atherosclerotic disease. 4. PEG tube in place. ACT 112: Positive. There are findings on this examination that require communication between the performing entity and the patient following Patient Test Result Information Act ([place] ACT 112) guidelines. Electronically signed by Kerry Salter 09-14-2024 2:48 PM
--- NOTE | 2024-09-15 10:41 | Hospitalist Progress Note ---
Date of Service September 14, 2024 Assessment & Plan (1) Aspiration pneumonia: Plan: likely secondary to L vocal chord paralysis - chronic PEG placement completed for 09/12/24 will keep NPO. Started peg tube feedings. (2) Vocal fold paralysis, left: Plan: Scheduled for PEG placement on 09/12/24 appreciate speech therapy/dietary rec's for aspiration precautions. (3) Weight loss, unintentional: Plan: Severe protein-calorie malnutrition likely secondary to #2 / dysphagia Per EMR, weight was 60.2 kg 06/12/24. Assessment on admission was 53.4kg. RD dairy feed sales consultant noted (06/11/24) "hollow look in orbital region & in buccal fat pads; scooping depression in confucianism region, protruding prominent clavicle bone" and "18% wt loss in 6 months". S/P Peg tube placement. Awaiting Tube feeds reaching goal prior to discharge. Also will need tube feeds to reach goal prior to discharge appreciate speech therapy/dietary rec's for PO/artificial nutrition (4) COPD (chronic obstructive pulmonary disease): Plan: Recommend Smoking Cessation teaching Pt would benefit by establishing/follow up with equipment records supervisor. (5) Tobacco abuse: Plan: Recommend Smoking Cessation teaching Declines offer of nicotine patch. Admission and Anticipated Discharge Date Admission Date: September 10, 2024 Subjective 69 yo male reports no new symptoms; tolerating the tube feeds Review of Systems Review of Systems: All systems reviewed & are unremarkable except as noted in HPI & below Physical Exam Physical Exam: Gen: thin appearing patient in NAD HEENT: AT NC MMM Abd: + BS, soft, non-tender, non-distended Neuro: alert and oriented Psych: appropriate mood and affect Results & Data Results & Data Vital Signs (Past 12 Hours) Vital Signs Temp Pulse Pulse Resp BP Pulse Ox O2 Del Method 09/15/24 07:29 36.8 C 77 17 143/74 H 90 Room Air 09/15/24 07:21 Room Air 09/15/24 07:15 74 09/15/24 04:02 36.6 C 81 16 139/67 91 Room Air 09/14/24 23:19 36.6 C 76 16 117/63 92 Room Air PG Care Time/CCT Total # of Minutes Spent Total Time Spent with Patient: Total time spent is greater than 50% in coordination of care (as documented) at patient's floor/unit and/or counseling patient: Coding Level of Care Code 24042 SUB INP/OBS CARE 2MIN Diagnoses Aspiration pneumonia J69.0 Vocal fold paralysis, left J38.01 Weight loss, unintentional R63.4 COPD (chronic obstructive pulmonary disease) J44.9 Tobacco abuse Z72.0
[2024-09-15 11:12] LABS: Basophils # (auto) 0.06 K/uL (0.00-0.20); Basophils % (auto) 0.5 %; Eosinophils # (auto) 0.62 K/uL (0.00-0.50); Eosinophils % (auto) 5.2 %; Hematocrit (blood only) 36.4 % (42.0-52.0); Hemoglobin 11.4 g/dl (14.0-18.0); Immature Granulocytes # (auto) 0.05 K/uL (0.01-0.20); Immature Granulocytes % (auto) 0.4 %; Lymphocytes # (auto) 0.88 K/uL (1.20-3.40); Lymphocytes % (auto) 7.4 %; Mean Corpuscular Hemoglobin 27.1 pg (25.0-34.0); Mean Corpuscular Hgb Conc 31.3 g/dL (32.0-36.0); Mean Corpuscular Volume 86.5 fL (80.0-100.0); Mean Platelet Volume 8.9 fL (9.4-12.4); Monocytes # (auto) 0.84 K/uL (0.11-0.59); Neutrophils # (auto) 9.49 K/uL (1.40-6.50); Neutrophils % (auto) 79.5 %; Platelet Count 350 K/uL (130-400); RDW Coefficient of Variation 13.4 % (11.5-14.5); RDW Standard Deviation 42.3 fL (36.4-46.3); Red Blood Count 4.21 M/uL (4.70-6.10); White Blood Count 11.94 K/ul (4.8-10.8)
--- NOTE | 2024-09-15 11:12 | Hospitalist Progress Note ---
Date of Service September 15, 2024 Assessment & Plan (1) Aspiration pneumonia: Plan: likely secondary to L vocal chord paralysis - chronic PEG placement completed for 09/12/24 will keep NPO. Started peg tube feedings. Anticipate discharge on 09/16 if home tube feeds are ready (2) Vocal fold paralysis, left: Plan: Scheduled for PEG placement on 09/12/24 appreciate speech therapy/dietary rec's for aspiration precautions. (3) Weight loss, unintentional: Plan: Severe protein-calorie malnutrition likely secondary to #2 / dysphagia Per EMR, weight was 60.2 kg 06/12/24. Assessment on admission was 53.4kg. RD rewards consultant noted (06/11/24) "hollow look in orbital region & in buccal fat pads; scooping depression in methodist region, protruding prominent clavicle bone" and "18% wt loss in 6 months". S/P Peg tube placement. Awaiting Tube feeds reaching goal prior to discharge. Also will need tube feeds to reach goal prior to discharge appreciate speech therapy/dietary rec's for PO/artificial nutrition Due to weight loss ordered CT abd/pelvis to rule out any malignancy. (4) COPD (chronic obstructive pulmonary disease): Plan: Recommend Smoking Cessation teaching Pt would benefit by establishing/follow up with astrochemist. (5) Tobacco abuse: Plan: Recommend Smoking Cessation teaching Declines offer of nicotine patch. Admission and Anticipated Discharge Date Admission Date: September 10, 2024 Subjective 69 yo male reports no new symptoms. Review of Systems Review of Systems: All systems reviewed & are unremarkable except as noted in HPI & below Physical Exam Physical Exam: Gen: thin appearing patient in NAD HEENT: AT NC MMM Abd: + BS, soft, non-tender, non-distended Neuro: alert and oriented Psych: appropriate mood and affect Results & Data Results & Data Vital Signs (Past 12 Hours) Vital Signs Temp Pulse Pulse Resp BP Pulse Ox O2 Del Method 09/15/24 07:29 36.8 C 77 17 143/74 H 90 Room Air 09/15/24 07:21 Room Air 09/15/24 07:15 74 09/15/24 04:02 36.6 C 81 16 139/67 91 Room Air 09/14/24 23:19 36.6 C 76 16 117/63 92 Room Air PG Care Time/CCT Total # of Minutes Spent Total Time Spent with Patient: Total time spent is greater than 50% in coordination of care (as documented) at patient's floor/unit and/or counseling patient: Coding Level of Care Code 43687 SUB INP/OBS CARE 235MIN Diagnoses Aspiration pneumonia J69.0 Vocal fold paralysis, left J38.01 Weight loss, unintentional R63.4 COPD (chronic obstructive pulmonary disease) J44.9 Tobacco abuse Z72.0
[2024-09-15 11:27] LABS: BUN Creatinine Ratio 16.5 (10-20); Calcium 8.9 mg/dl (8.6-10.3); Creatinine Clr Calc Pharmacy 53.7 ml/min; Potassium 4.5 mmol/L (3.5-5.1)
[2024-09-15 11:38] LABS: C Reactive Protein 10.77 mg/dl (0-0.5)
[2024-09-15] MEDS: LANTUS PER UNIT CHARGE SQ SCH (20:05)
[2024-09-15] MEDS: CLOPIDOGREL BISULFATE 75 MG TAB PEG SCH (20:06)
[2024-09-15] MEDS: amLODIPine BESYLATE 5 MG TAB PEG SCH (20:06)
[2024-09-15] MEDS: ATORVASTATIN 40 MG TAB PEG SCH (20:06)
[2024-09-16 06:35] LABS: Basophils # (auto) 0.05 K/uL (0.00-0.20); Basophils % (auto) 0.4 %; Eosinophils # (auto) 1.58 K/uL (0.00-0.50); Eosinophils % (auto) 13.7 %; Hematocrit (blood only) 36.1 % (42.0-52.0); Hemoglobin 11.4 g/dl (14.0-18.0); Immature Granulocytes # (auto) 0.05 K/uL (0.01-0.20); Immature Granulocytes % (auto) 0.4 %; Lymphocytes # (auto) 1.12 K/uL (1.20-3.40); Lymphocytes % (auto) 9.7 %; Mean Corpuscular Hemoglobin 27.3 pg (25.0-34.0); Mean Corpuscular Hgb Conc 31.6 g/dL (32.0-36.0); Mean Corpuscular Volume 86.4 fL (80.0-100.0); Mean Platelet Volume 8.8 fL (9.4-12.4); Monocytes # (auto) 0.82 K/uL (0.11-0.59); Monocytes % (auto) 7.1 %; Neutrophils # (auto) 7.95 K/uL (1.40-6.50); Neutrophils % (auto) 68.7 %; Platelet Count 355 K/uL (130-400); RDW Coefficient of Variation 13.6 % (11.5-14.5); Red Blood Count 4.18 M/uL (4.70-6.10); White Blood Count 11.57 K/ul (4.8-10.8)
[2024-09-16 06:53] LABS: BUN Creatinine Ratio 21.8 (10-20); C Reactive Protein 7.35 mg/dl (0-0.5); Creatinine Clr Calc Pharmacy 62.7 ml/min; Magnesium 1.8 mg/dl (1.7-2.4); Phosphorus 3.6 mg/dl (2.5-4.9); Potassium 4.6 mmol/L (3.5-5.1)
[2024-09-16 08:05] VITALS: RESP 18
[2024-09-16] MEDS: ASPIRIN 81 MG CHEW PEG SCH (08:15)
[2024-09-16 12:41] VITALS: BP 132/66; PULSE 78; TEMP 98.1; O2SAT 91
--- NOTE | 2024-09-18 19:54 | Discharge Summary ---
Discharge Summary Date of Service September 16, 2024 Principal Dx & Hospital Course #1 = Principal Diagnosis (1) Aspiration pneumonia: likely secondary to L vocal chord paralysis - chronic PEG placement completed for 09/12/24 Started peg tube feedings. Discharged on 09/16 as home tube feeds are ready. Patient may have comfort feeds. Patient understands his risk of aspiration. (2) Vocal fold paralysis, left: Scheduled for PEG placement on 09/12/24 appreciate speech therapy/dietary rec's for aspiration precautions. (3) Weight loss, unintentional: Severe protein-calorie malnutrition likely secondary to #2 / dysphagia Per EMR, weight was 60.2 kg 06/12/24. Assessment on admission was 53.4kg. RD clinical services consultant noted (06/11/24) "hollow look in orbital region & in buccal fat pads; scooping depression in adventist region, protruding prominent clavicle bone" and "18% wt loss in 6 months". S/P Peg tube placement. Awaiting Tube feeds reaching goal prior to discharge. Also will need tube feeds to reach goal prior to discharge appreciate speech therapy/dietary rec's for PO/artificial nutrition Due to weight loss ordered CT abd/pelvis to rule out any malignancy. (4) COPD (chronic obstructive pulmonary disease): Recommend Smoking Cessation teaching Pt would benefit by establishing/follow up with inspector brake lining. will defer to PCP. (5) Tobacco abuse: Recommend Smoking Cessation teaching Declines offer of nicotine patch. Admission HPI Per Admitting Provider 69 y/o with a PMHx of stroke, carotid artery stenosis s/p bilateral CEA with sequelae of left vocal cord paralysis and right retinal artery occlusion, active smoking, HTN, HLD, COPD, and IDDM here after a syncopal episode. Patient was taking his pills when he choked on the pill and started coughing extremely hard. Patient became short of breath. The next thing he knew he was surrounded by EMS and family. Apparently he was found on the floor, but he does not remember. He thinks this was because of decreased oxygen to the brain and not cardiac related. Patient does have a history of COPD and is actively smoking. Plans to quit. Feels that he is coughing/wheezing a bit more and is having trouble catching his breath. No fevers or chills. No recent illnesses. No nausea or vomiting. No change in bowel or bladder habits. No blood in the urine or stool. No pain in the chest. Patient started on CTX and Flagyl in the ED. Mg was repleted as well. Admission was called for further work up. Discharge Exam Gen: thin appearing patient in NAD HEENT: AT NC MMM Abd: + BS, soft, non-tender, non-distended Neuro: alert and oriented Psych: appropriate mood and affect Discharge Plan Discharge Items Patient Disposition: Home - Home Health Services Reason For Visit: SYNCOPE Discharge Diagnosis: syncope Condition on Discharge: Fair Activity: Resume your previous activity Non-emergency contact: Primary Care Provider Call non-emergency contact if: you have any medication questions Follow-up/Referrals: Priti Shah DO [Primary Care Provider] - 09/23/24 11:00 am Diet: Full liquid Addtl Attending Provider Instructions: Speech therapy discharge instructions: 1. utilize PEG tube and liquid feedings per instructions. 2. continue with oral intake as comfortable 3. maintain oral hygiene while cleaning will be vital to receive the risks of developing aspiration from oral intake and from secretions. 4. clean all surfaces of mouth and tongue and any dentures at least twice a day and if the patient is not eating by mouth. Ok for comfort feeds with a full liquid diet. Pending Studies at Discharge: No Stand-Alone Forms: [facility], Smoking Cessation Medications and DC Order Prescriptions: New Fibersource HN 0.05 gram- 1.2 kcal/mL Liquid 1 ea G-tube UD Qty: 0 0RF Continued (DME) insulin syringe-needle U-100 [[facility] Syringes] 0.5 mL 31 gauge x 5/16" syringe See Rx Instructions .Route Qty: 100 5RF Rx Instructions: As directed BID w/ Novolin (DME) pen needle, diabetic [BD Ultra-Fine Belen Pen Needle] 32 gauge x 5/32" needle See Rx Instructions .Route Qty: 200 2RF Rx Instructions: 4 per day with insulin pens (DME) FreeStyle Que 3 [facility] See Rx Instructions .Route Qty: 1 0RF Rx Instructions: As directed cyclobenzaprine 5 mg tablet 5 mg PO TID PRN (Reason: muscle spasm) Qty: 20 0RF (DME) OneTouch Verio test strips Strip See Dose Instructions .ROUTE .MEDSUPPLY Qty: 100 2RF Dose Instruction: As directed Rx Instructions: TEST 3 TIMES DAILY (DME) FreeStyle Que 3 Sensor Device See Rx Instructions .Route Qty: 2 1RF Rx Instructions: As directed- change every 14 days atorvastatin 80 mg tablet 80 mg PO QPM Qty: 90 1RF Rx Instructions: TAKE 1 TABLET BY MOUTH EVERY DAY insulin aspart U-100 [Novolog FlexPen U-100 Insulin] 100 unit/mL (3 mL) insulin pen 1 sliding scale dose subcut USEASDIRECTD Qty: 15 2RF Rx Instructions: 160-180- 2 units, 181-210- 4 units, 211-240- 6 units, 241-270- 8 units, 271-300- 10 units, If BS >300- call office clopidogrel [Plavix] 75 mg tablet 75 mg PO QPM Qty: 90 1RF insulin glargine [Lantus Solostar U-100 Insulin] 100 unit/mL (3 mL) insulin pen 15 - 16 unit subcut QAM Qty: 15 3RF latanoprost 0.005 % drops 1 drp ophthalmic (eye) HS insulin glargine [Lantus Solostar U-100 Insulin] 100 unit/mL (3 mL) insulin pen 14 unit SUBCUT DAILY Rx Instructions: 14 Units Lantus in the morning Anoro Ellipta 62.5-25 mcg/actuation blister with device 1 inh INHALATION DAILY amlodipine 5 mg tablet 5 mg PO QPM oxycodone-acetaminophen [Percocet] 5-325 mg Tablet 1 tab PO Q6H PRN (Reason: pain) Qty: 10 0RF Changed aspirin 81 mg tablet,chewable 81 mg feeding tube DAILY Qty: 30 0RF Discontinued losartan 50 mg tablet 50 mg PO QPM Qty: 90 1RF No Action ferrous sulfate 300 mg (60 mg iron)/5 mL liquid 300 mg PO BID Qty: 500 5RF Discharge Orders: Discharge Order (Routine); Ordered 09/16/24 Ordered By: Oni Jerez/Other Patient Handouts: Managing Type 2 Diabetes Admission Data Admit Date/Time: 09/10/24 02:26 Attending Provider: Oni Vasquez Admit Provider: Catia iMstry Primary Care Provider: Priti Shah Other Providers: William Banuelos [facility]; Catia Mistry; Dick Rajan I; Hasmukh Gifford Other Interventions: Discharge Summary Assessment (RN) Last Done: 09/16/24 13:50 Hospital Stay Data Consultations 09/10/24 01:08 ED Decision to Admit Stat 09/10/24 16:45 Consult Palliative Care Routine 09/10/24 16:46 Consult Gastroenterology Routine Procedures Performed Operation Date: 09/12/24 17:10 Actual Procedures p EGD Gastric Tube Placement - Dick Rajan MD Diagnostic Imagining Performed 09/09/24 21:29 CT head/brain wo con Stat 09/09/24 23:19 CT angio chest PE protocol Stat 09/10/24 13:45 FL video swallow Routine 09/14/24 11:52 CT Abd and Pelvis [CT abd pelvis IV con only] Routine Pending Results Patient Have Any Pending Studies at Discharge: No Discharge Instructions Given to Patient (Per Discharging Provider) Speech therapy discharge instructions: 1. utilize PEG tube and liquid feedings per instructions. 2. continue with oral intake as comfortable 3. maintain oral hygiene while cleaning will be vital to receive the risks of developing aspiration from oral intake and from secretions. 4. clean all surfaces of mouth and tongue and any dentures at least twice a day and if the patient is not eating by mouth. Ok for comfort feeds with a full liquid diet. Total Time Total Time Spent Total Time Spent (In Minutes): 32 Coding Level of Care Code 35977 INP/OBS DISCH >30 MIN Diagnoses Aspiration pneumonia J69.0 Vocal fold paralysis, left J38.01 Weight loss, unintentional R63.4 COPD (chronic obstructive pulmonary disease) J44.9 Tobacco abuse Z72.0
== END 2024-09-16 15:02 | disposition home health service (06) | DRG 177 ==
LOC: ED 21:14 → SUATTDRO 09-10 02:26 → EDINP 09-10 02:26 → 2S 09-10 15:33 → 3N 09-15 12:14